=== PATIENT | male | born 1945 | race Caucasian/White ===

== ENCOUNTER 2017-04-15 09:47 | Inpatient (IN) | payer OTHER, MEDICARE ==
[~2017-04-15] VITALS: Ht 167.6 cm; Wt 65.5 kg
[2017-04-15] VITALS (13 sets, daily range): BP systolic 128–229; BP diastolic 79–137; PULSE 66–99; RESP 18–20; TEMP 97.7–98.3; O2SAT 95–100
[~2017-04-15 09:47] MED LIST: AMLO10 PO; ATOR20TA15 PO; BENGCRE TOPICAL; COUM5TAB PO; ISOS10TA PO; LISI-515 PO; METO25TA3 PO; NITR0.4S SL
[2017-04-15] MEDS ORDERED: SODIUM CHLORIDE 0.9% FLUSH 10 ML FLUSH IVF PRN (10:15)
[2017-04-15 10:27] LABS: AUTOMATED NEUTROPHIL # 5.7 TH/MM3 (1.8-7.7); BASOPHIL # 0.1 TH/MM3 (0-0.2); BASOPHIL % 0.8 % (0.0-2.0); EOSINOPHIL # 0.2 TH/MM3 (0-0.4); EOSINOPHIL % 2.8 % (0.0-4.0); HEMATOCRIT 40.1 % (39.0-51.0); HEMO FLAGS DIFF FINAL; LYMPH % 20.7 % (9.0-44.0); LYMPHOCYTE # 1.8 TH/MM3 (1.0-4.8); MEAN CELL VOLUME 87.8 FL (80.0-100.0); MEAN CORPUSCULAR HEMOGLOBIN 28.4 PG (27.0-34.0); MEAN CORPUSCULAR HGB CONC 32.4 % (32.0-36.0); MONO % 9.5 % (0.0-8.0); NEUT % 66.2 % (16.0-70.0); PLATELET COUNT 171 TH/MM3 (150-450); RED BLOOD COUNT 4.56 MIL/MM3 (4.50-5.90); WHITE BLOOD COUNT 8.6 TH/MM3 (4.0-11.0)
[2017-04-15] MEDS ORDERED: LABETALOL HCL 100 MG/20 ML VIAL IV PUSH ONE ×3 (10:45→13:30)
[2017-04-15 10:47] LABS: ANION GAP 9 MEQ/L (5-15); APTT (PATIENT) 30.8 SEC (24.3-30.1); AST (GOT) 22 U/L (15-37); BICARBONATE 27.4 MEQ/L (21.0-32.0); BLOOD UREA NITROGEN 29 MG/DL (7-18); CHLORIDE 104 MEQ/L (98-107); GLOMERULAR FILTRATION RATE 39 ML/MIN (>89); POTASSIUM 3.6 MEQ/L (3.5-5.1); PROTHROMBIN TIME - PATIENT 11.6 SEC (9.8-11.6); SODIUM (NA) 140 MEQ/L (136-145)
[2017-04-15 10:48] LABS: ALT (GPT) 23 U/L (12-78)
[2017-04-15 10:52] LABS: ALKALINE PHOSPHATASE 114 U/L (45-117); TOTAL BILIRUBIN ADULT 1.1 MG/DL (0.2-1.0)
[2017-04-15 11:01] LABS: CREATINE KINASE 94 U/L (39-308)
--- NOTE | 2017-04-15 11:03 | PD ---
HPI Chief Complaint: Chest Pain Time Seen by Provider: 10:13 Travel History International Travel<30 days: No Contact w/Intl Traveler<30days: No Traveled to known affect area: No History of Present Illness HPI sent from [place] due to intermittent cp for last week, however, last episode about 2 hour ago, substernal, nonrad, 02/15, pressure like PFSH Past Medical History Anxiety: No Depression: Yes Heart Rhythm Problems: Yes (afib/aflutter) Cancer: No Cardiac Catheterization: Yes Cardiovascular Problems: Yes (BYPASS) High Cholesterol: Yes Chest Pain: Yes Congestive Heart Failure: No Coronary Artery Disease: Yes Endocrine: No Gastrointestinal Disorders: No Genitourinary: No Hypertension: Yes Immune Disorder: No Inguinal Hernia: Yes Implanted Vascular Access Dvce: Yes Musculoskeletal: Yes Neurologic: No Psychiatric: Yes Reproductive: No Respiratory: No Immunizations Current: Yes Myocardial Infarction: Yes ?: Not Past Surgical History Abdominal Surgery: No Body Medical Devices: coronary stents Cardiac Surgery: Yes Coronary Artery Bypass Graft: Yes (x5) Coronary Stent: Yes Ear Surgery: No Endocrine Surgery: No Eye Surgery: No Genitourinary Surgery: No Gynecologic Surgery: No Neurologic Surgery: No Oral Surgery: No Thoracic Surgery: No Other Surgery: Yes Social History Alcohol Use: No Tobacco Use: No Substance Use: No Allergies-Medications (Allergen,Severity, Reaction): Coded Allergies: lisinopril (Verified Allergy, Unknown, 04/15/17) penicillin G (Unverified Allergy, Unknown, 03/23/17) wool (Verified Allergy, Unknown, 04/15/17) Reported Meds & Prescriptions Reported Meds & Active Scripts Active Coumadin (Warfarin) 5 Mg Tab 5 Mg PO DAILY@1600 Metoprolol Tartrate 25 Mg Tab 25 Mg PO Q12HR Norvasc (Amlodipine Besylate) 10 Mg Tab 10 Mg PO DAILY Reported Nitrostat SL (Nitroglycerin) 0.4 Mg Subl 0.4 Mg SL DIRECTED PRN 1 tablet under the tongue as needed for chest pain. Repeat every 5 minutes for a total of 3 DOSES or call 911 if NO relief. Isosorbide Dinitrate 10 Mg Tab 10 Mg PO BID Atorvastatin (Atorvastatin Calcium) 20 Mg Tab 20 Mg PO HS Review of Systems Except as stated in HPI: all other systems reviewed are Neg Cardiovascular: Positive: Chest Pain or Discomfort Physical Exam Narrative GENERAL: SKIN: Warm and dry. HEAD: Atraumatic. Normocephalic. EYES: Pupils equal and round. No scleral icterus. No injection or drainage. ENT: No nasal bleeding or discharge. Mucous membranes pink and moist. NECK: Trachea midline. No JVD. CARDIOVASCULAR: Regular rate and rhythm. RESPIRATORY: No accessory muscle use. Clear to auscultation. Breath sounds equal bilaterally. GASTROINTESTINAL: Abdomen soft, non-tender, nondistended. MUSCULOSKELETAL: Extremities without clubbing, cyanosis, or edema. No obvious deformities. NEUROLOGICAL: Awake and alert. No obvious cranial nerve deficits. Motor grossly within normal limits. Five out of 5 muscle strength in the arms and legs. Normal speech. PSYCHIATRIC: Appropriate mood and affect; insight and judgment normal. Data Data Last Documented VS Vital Signs Date Time Temp Pulse Resp B/P (MAP) Pulse Ox O2 Delivery O2 Flow Rate FiO2 04/15/17 12:08 72 18 178/97 (124) 99 Room Air 04/15/17 09:49 97.7 Orders Orders Electrocardiogram (04/15/17 10:13) B-Type Natriuretic Peptide (04/15/17 10:13) Ckmb (Isoenzyme) Profile (04/15/17 10:13) Complete Blood Count With Diff (04/15/17 10:13) Comprehensive Metabolic Panel (04/15/17 10:13) Prothrombin Time / Inr (Pt) (04/15/17 10:13) Act Partial Throm Time (Ptt) (04/15/17 10:13) Troponin I (04/15/17 10:13) Lipase (04/15/17 10:13) Chest, Single Ap (04/15/17 10:13) Ecg Monitoring (04/15/17 10:13) Bilateral Bp Monitoring (04/15/17 10:13) Iv Access Insert/Monitor (04/15/17 10:13) Oximetry (04/15/17 10:13) Oxygen Administration (04/15/17 10:13) Sodium Chloride 0.9% Flush (Ns Flush) (04/15/17 10:15) Labetalol Inj (Trandate Inj) (04/15/17 10:45) Labetalol Inj (Trandate Inj) (04/15/17 11:30) Aspirin Chew (Aspirin Chew) (04/15/17 11:30) Nitroglycerin 2% Oint (Nitroglycerin 2% (04/15/17 11:30) Enoxaparin Inj (Lovenox Inj) (04/15/17 11:30) Comprehensive Metabolic Panel (04/16/17 06:00) Free Thyroxine (T4) (04/16/17 06:00) Hemoglobin (Hgb) A1c (04/16/17 06:00) Magnesium (Mg) (04/16/17 06:00) Phosphorus (Po4) (04/16/17 06:00) Thyroid Stimulating Hormone (04/16/17 06:00) Complete Blood Count With Diff (04/16/17 06:00) Admit Order (Ed Use Only) (04/15/17 12:55) Amlodipine (Norvasc) (04/15/17 14:00) Atorvastatin (Lipitor) (04/15/17 21:00) Isosorbide Dinitrate (Isordil) (04/15/17 17:00) Metoprolol Tartrate (Lopressor) (04/15/17 14:00) Warfarin (Coumadin) (04/15/17 16:00) Labs Laboratory Tests Test 04/15/17 10:16 White Blood Count 8.6 TH/MM3 Red Blood Count 4.56 MIL/MM3 Hemoglobin 13.0 GM/DL Hematocrit 40.1 % Mean Corpuscular Volume 87.8 FL Mean Corpuscular Hemoglobin 28.4 PG Mean Corpuscular Hemoglobin Concent 32.4 % Red Cell Distribution Width 14.0 % Platelet Count 171 TH/MM3 Mean Platelet Volume 9.3 FL Neutrophils (%) (Auto) 66.2 % Lymphocytes (%) (Auto) 20.7 % Monocytes (%) (Auto) 9.5 % Eosinophils (%) (Auto) 2.8 % Basophils (%) (Auto) 0.8 % Neutrophils # (Auto) 5.7 TH/MM3 Lymphocytes # (Auto) 1.8 TH/MM3 Monocytes # (Auto) 0.8 TH/MM3 Eosinophils # (Auto) 0.2 TH/MM3 Basophils # (Auto) 0.1 TH/MM3 CBC Comment DIFF FINAL Differential Comment Prothrombin Time 11.6 SEC Prothromb Time International Ratio 1.0 RATIO Activated Partial Thromboplast Time 30.8 SEC Blood Urea Nitrogen 29 MG/DL Creatinine 1.74 MG/DL Random Glucose 106 MG/DL Total Protein 8.0 GM/DL Albumin 3.8 GM/DL Calcium Level 8.9 MG/DL Alkaline Phosphatase 114 U/L Aspartate Amino Transf (AST/SGOT) 22 U/L Alanine Aminotransferase (ALT/SGPT) 23 U/L Total Bilirubin 1.1 MG/DL Sodium Level 140 MEQ/L Potassium Level 3.6 MEQ/L Chloride Level 104 MEQ/L Carbon Dioxide Level 27.4 MEQ/L Anion Gap 9 MEQ/L Estimat Glomerular Filtration Rate 39 ML/MIN Total Creatine Kinase 94 U/L Troponin I 0.10 NG/ML B-Type Natriuretic Peptide 802 PG/ML Lipase 126 U/L MDM Medical Decision Making Medical Screen Exam Complete: Yes Emergency Medical Condition: Yes Medical Record Reviewed: Yes Interpretation(s) afib with cvr, no stemi pattern Differential Diagnosis stemi v nonstemi v hypertensive emergency v electrolyte abnl Narrative Course patient found to be very hypertensive, requiring iv medications to control sbp above 200, along with his history of cp, htn emergency is possible, currently awaiting labs......once troponin elevated htn emergency dx made, given asa/ntg/ lovenox and further iv labetalol to control severe htn...which started to respond and thus patient did not require to be placed on drip Critical Care Narrative CRITICAL CARE NOTE: With evaluation of the patient, labs, EKG, receipt of radiologic studies, administration of medications, reevaluation the patient and discussion of the patient with the admitting physicians, the total critical care time was [45] minutes. Time to perform other separately billable procedures was not included in the critical care time. Diagnosis Primary Impression: hypertensive urgency Additional Impression: nonstemi Admitting Information Admitting Physician Requests: Isaias Bains MD Apr 15, 2017 11:03
[2017-04-15] MEDS ORDERED: NITROGLYCERIN 2% OINT 1 GM PACKET TOP ONE (11:30)
[2017-04-15] MEDS ORDERED: ENOXAPARIN SODIUM 60 MG/0.6 ML SYRINGE SQ ONE (11:30)
[2017-04-15] MEDS ORDERED: ASPIRIN 81 MG CHEW TAB PO ONE (11:30)
--- NOTE | 2017-04-15 11:49 | RADRPT ---
EXAM DATE/TIME: 04/15/2017 10:26 [facility] COMPARISON: CHEST SINGLE AP, July 23, 2016, 11:15. INDICATIONS : Chest pain, shortness of breath. MEDICAL HISTORY : Hypertension. SURGICAL HISTORY : CABG. ENCOUNTER: Initial ACUITY: 2 weeks PAIN SCORE: 2/10 LOCATION: Left chest FINDINGS: Median sternotomy wires are noted status post cardiac surgery. The heart is enlarged. Pulmonary vas cular pattern is normal. The lungs are clear. CONCLUSION: 1. Cardiomegaly 2. No acute focal pulmonary infiltrate or pulmonary vascular congestion. Gabriel Nassar MD on April 15, 2017 at 11:40 Board Certified Radiologist. This report was verified electronically.
[2017-04-15] MEDS ORDERED: MAGNESIUM HYDROXIDE SUSP 30 ML CUP PO PRN (13:00)
[2017-04-15] MEDS ORDERED: SODIUM CHLORIDE 0.9% FLUSH 10 ML FLUSH IV FLUSH PRN ×2 (13:00)
[2017-04-15] MEDS ORDERED: ACETAMINOPHEN 325 MG TAB PO PRN ×2 (13:00)
[2017-04-15] MEDS ORDERED: LACTULOSE SYRUP 20 GM/30 ML CUP PO PRN (13:00)
[2017-04-15] MEDS ORDERED: MORPHINE SULFATE 4 MG/ML INJ IV PRN ×2 (13:00)
[2017-04-15] MEDS ORDERED: NALOXONE HCL 0.4 MG/ML AMP IV PRN (13:00)
[2017-04-15] MEDS ORDERED: ZOLPIDEM TARTRATE 5 MG TAB PO PRN (13:00)
[2017-04-15] MEDS ORDERED: ACETAMINOPHEN/HYDROcodone 325 MG/10 MG TAB PO PRN (13:00)
[2017-04-15] MEDS ORDERED: BISACODYL 10 MG SUPP RECTAL PRN (13:00)
[2017-04-15] MEDS ORDERED: SENNOSIDES 8.6 MG TAB PO PRN (13:00)
[2017-04-15] MEDS ORDERED: PROCHLORPERAZINE 25 MG SUPP RECTAL PRN (13:00)
[2017-04-15] MEDS ORDERED: NITROGLYCERIN 0.4 MG SL 25 TABS/BTL SL PRN (13:15)
[2017-04-15] MEDS ORDERED: METOPROLOL TARTRATE 25 MG TAB PO SCH (14:00)
[2017-04-15] MEDS: oxyCODONE/ACETAMINOPHEN 5 MG/325 MG TAB PO PRN (14:23)
--- NOTE | 2017-04-15 15:03 | MB ---
cc: HOLLY HASTINGS M.D. DATE OF CONSULTATION: 04/15/2017 REASON FOR CONSULTATION: For evaluation of ischemic heart disease. HISTORY OF PRESENT ILLNESS: Sommer Murray is a 71-year-old man who is a and is followed at [facility]. Apparently he was seen there today and was referred over for chest pain. The patient has a history of bypass and per the records it is a five vessel bypass. The patient told me was done at [facility], he also told me was 1 year ago seems highly unlikely was only 1 year ago from reviewing his records, insofar as she had a previous cardiology consult from Dr. Marques and the date of this consult was July 2016 and that would only been a few months after his bypass if that was in fact true. I asked him what year it was and he had trouble figuring that out, He also could not tell me what day of the week it was and actually had to ask me for what day of week it was. He thought it was year 2006. He is aware that the president is Andrew. He says that he gets chest discomfort. He only gets it when he lies down at night and does not get it when he is around. Its a pressure feeling like an elephant on his chest. He does not have any of that now. He says that he has had this intermittently for two weeks. His chart lists five different medications; Warfarin Metoprolol, Amlodipine, Isordil, Atorvastatin, The patient cannot confirm that, he states that he only takes three medications and that is counting the nitroglycerin. He also denies taking any blood thinner and never heard of the word warfarin and does not get lab work for warfarin that I can figure out. He lives alone, he is upset over losing his girlfriend which was a while ago. He has had previous Veronica Acts here. The patient also tells me that he hears voices otherwise his home to "get the Fuck out of here". He also hallucinates at night and sees people dying and if there is a ceiling fan on he will see helicopter hallucinations. 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 His blood pressure here is severely elevated. He says he forgot to take any of his blood pressure medicines today. He does say he took them yesterday but I am not sure how reliable that history is. PAST MEDICAL HISTORY: 1. Past medical history includes coronary artery disease with bypass surgery x5 2. We cannot determine whether he has had a previous heart attack or not. He is not certain. 3. Hyperlipidemia. 4. Hypertension. 5. Psychiatric history; during one of the psychiatric consults he was described as having a neurocognitive disorder and on the other consult an adjustment disorder with depressed mood. 6. Supposedly has stents, I don't have any records of that. 7. He is in chronic renal failure with small and atrophic kidney disease by imaging. Left kidney was 9.6 cm, right kidney 7.6 cm. 8. His creatinine elevation is similar to what he has had to similar to what he has had on previous trips the hospital with stage III chronic kidney disease. 9. Cholelithiasis picked up on imaging. 10. Diverticulosis picked up on imaging. PAST SURGICAL HISTORY: Include his bypass surgery. He has a scar on his left arm which may be from left radial harvest. MEDICATIONS: Supposed medications are; Warfarin Metoprolol Amlodipine Isordil Atorvastatin but it seems quite certain that he is not on all these as he can only remember taking three medicines. At one point in the past he was on Allopurinol. ALLERGIES LISINOPRIL PENICILLIN Wool. SOCIAL HISTORY Single, does not drink, smoke or use any drugs. He has a sister who lives in [place]. He has been living in dilapidated housing, his previous housing had rats and cockroaches in it. FAMILY HISTORY: Positive for coronary artery disease. PHYSICAL EXAMINATION IN GENERAL: Well-developed, well-nourished white male, I am not sure he is fully oriented. VITAL SIGNS: His blood pressure has been markedly elevated as high 222/130 and 211/121. HEAD, EYES, EARS, NOSE, AND THROAT: Exam unremarkable. NECK: Negative for bruits. CHEST: The chest is clear to auscultation. CARDIOVASCULAR SYSTEM: Exam S1-S2 irregular rate and rhythm with a 1/6 systolic murmur. ABDOMEN: Soft, nontender. EXTREMITIES: The extremities reveal absent left radial pulse normal right radial pulse. Normal pedal pulses. RADIOLOGIC: EKG shows Atrial fibrillation with controlled ventricular rate, Left ventricular hypertrophy with obvious drain patten. Poor R-wave progression, cannot exclude ante septal myocardial infarction. Troponin is 0.10 which is similar to previous values, creatinine is 1.74 which is similar previous values. INR 21. BNP is 802. Chest x-ray shows cardiomegaly. IMPRESSION This is a 71-year-old with chronic ischemic heart disease there appears to be some cognitive dysfunction as far as he can tell what time it is. He has definitely has symptoms that sound like angina but blood pressure is extremely out of control so cannot tell whether this is a angina from coronary disease or angina secondary to uncontrolled hypertension. He has significant chronic renal failure. He has chronic atrial fibrillation and I do not think he is on anticoagulation from what I can tell. In fact there is a question about compliance and what medications he is actually on outside of here. He only admits to taking two medicines, plus nitroglycerin which is completely different than the medication list that is in the computer. The elevated troponin is probably due to renal disease and not due to infarction. RECOMMENDATIONS: 1. We need use blood pressure under control, I would like to see if we can get some records from [facility]. I would like to check a 2-D echo Doppler study, once a blood pressure is under control then will decide on cardiac cath versus stress test. He will probably need a stress test first but need to wait and see. I will discontinue the Lovenox in view of the renal failure and if we decide to use anticoagulation we will use IV heparin. I am holding the warfarin incase he needs an invasive procedure, he may benefit from a psychiatric and home health interventions as there is some question about his cognitive function. Further therapy to be determined. MD ROSIE Estrada/jammie /2:19 PM /2:33 PM
[2017-04-15] MEDS ORDERED: hydrALAZINE HCL 20 MG/ML VIAL IV PUSH PRN (15:30)
--- NOTE | 2017-04-15 15:53 | ECHRPT ---
Indication: Chest pain, unspecified CONCLUSIONS Normal left ventricular size. Mild concentric left ventricular hypertrophy. The left ventricular systolic function is severely reduced with an estimated ejection fraction in th e range of 30-35%. [place] severely hypokinetic. Suspect anterior hypokinesis too. The left atrial size is moderately dilated. Mitral annular calcification is present. Mild mitral valve regurgitation. At least moderate aortic valve sclerosis is present. There is trace tricuspid valve regurgitation. The estimated pulmonary arterial pressure is 30 mmHg. The pulmonary valve is not well visualized. BP: / HR: Rhythm: MEASUREMENTS (Male / Female) Normal Values Technical Quality:Good 2D ECHO LV Diastolic Diameter PLAX 4.1 cm 4.2 - 5.9 / 3.9 - 5.3 cm LV Systolic Diameter PLAX 3.4 cm IVS Diastolic Thickness 1.7 cm 0.6 - 1.0 / 0.6 - 0.9 cm LVPW Diastolic Thickness 1.1 cm 0.6 - 1.0 / 0.6 - 0.9 cm LV Relative Wall Thickness 0.7 RV Internal Dim ED PLAX 2.3 cm LA Systolic Diameter LX 4.1 cm 3.0 - 4.0 / 2.7 - 3.8 cm M-MODE Aortic Root Diameter MM 3.3 cm AV Cusp Separation MM 1.8 cm DOPPLER Mitral E Point Velocity 67.6 cm/s TR Peak Velocity 221.0 cm/s TR Peak Gradient 19.5 mmHg FINDINGS LEFT VENTRICLE Normal left ventricular size. Mild concentric left ventricular hypertrophy. The left ventricular systolic function is severely reduced with an estimated ejection fraction in th e range of 30-35%. [place] severely hypokinetic. Suspect anterior hypokinesis too. RIGHT VENTRICLE Normal right ventricular size and systolic function. LEFT ATRIUM The left atrial size is moderately dilated. RIGHT ATRIUM The right atrial size is normal. ATRIAL SEPTUM Normal atrial septal thickness without atrial level shunting by limited color doppler interrogation. AORTA The aortic root and proximal ascending aorta are normal in size on limited imaging. MITRAL VALVE Mitral annular calcification is present. Mild mitral valve regurgitation. AORTIC VALVE At least moderate aortic valve sclerosis is present. TRICUSPID VALVE There is trace tricuspid valve regurgitation. The estimated pulmonary arterial pressure is 30 mmHg. PULMONARY VALVE The pulmonary valve is not well visualized. VESSELS The inferior vena cava is normal in size. PERICARDIUM No pericardial effusion. Vernon Godinez MD (Electronically Signed) Final Date:15 April 2017 15:53
[2017-04-15] MEDS: ONDANSETRON HCL 4 MG/2 ML VIAL IVP PRN ×2 (15:54→21:41)
[2017-04-15] MEDS ORDERED: WARFARIN SOD 5 MG TAB PO SCH (16:00)
[2017-04-15] MEDS ORDERED: DO NOT ADM ANY ANTICOAGULANT DRUGS OTHER PRN (16:00)
--- NOTE | 2017-04-15 16:18 | HHI.HP ---
[facility] Primary Care Physician [facility] Admission Diagnosis AFIB CVR, HTN UNCONTROLLED, Diagnoses: (1) Noncompliance Diagnosis: Secondary (2) Adjustment disorder with depressed mood Diagnosis: Secondary (3) Schizo-affective schizophrenia, chronic condition (4) Chronic kidney disease, stage 3 Diagnosis: Secondary (5) Hypertension Diagnosis: Principal (6) New onset atrial fibrillation (7) Acute kidney injury Diagnosis: Secondary (8) Elevated troponin I level Diagnosis: Principal (9) Chest pain Diagnosis: Principal Chief Complaint: Chest pain Travel History International Travel<30 Days: No Contact w/Intl Traveler <30 Da: No Traveled to Known Affected Are: No History of Present Illness Patient is a 71-year-old male who is normally followed at the [facility]. He was seen there today and was sent over to the hospital regarding chest pain. Patient has a extensive cardiac history with a history of bypass of 5 vessels.. Patient has history of psychiatric disorder also so history is not very reliable Patient has chest discomfort especially when he lies down at night does not get it when he moves around. It is a pressure-like feeling like an elephant on his chest. Denies any chest pain at this time. States that he's had this on and off for the past 2 weeks Patient has posterior medics stress disorder also Patient's blood pressures completely uncontrolled. Will be admitted. His troponins are elevated. Will be monitored by cardiology and trended. We'll get an echo. We'll continue to follow him throughout the admission Review of Systems ROS Limitations: Altered Mental Status, Poor Historian Constitutional: DENIES: Diaphoretic episodes, Fatigue, Fever, Weight gain, Weight loss, Chills, Dizziness, Change in appetite Endocrine: DENIES: Heat/cold intolerance, Polydipsia, Polyuria, Polyphagia Eyes: DENIES: Blurred vision, Diplopia, Eye inflammation, Eye pain Ears, nose, mouth, throat: DENIES: Tinnitus, Hearing loss, Vertigo, Nasal discharge, Oral lesions, Throat pain Respiratory: COMPLAINS OF: Cough, DENIES: Apneas, Snoring, Wheezing, Hemoptysis , Sputum production, Shortness of breath Cardiovascular: COMPLAINS OF: Chest pain, DENIES: Palpitations, Syncope, Dyspnea on Exertion, PND, Lower Extremity Edema Gastrointestinal: COMPLAINS OF: Abdominal pain, Nausea, Vomiting, DENIES: Black stools, Bloody stools, Constipation, Diarrhea Genitourinary: DENIES: Sexual dysfunction, Urinary frequency Musculoskeletal: DENIES: Joint pain, Muscle aches, Stiffness, Joint Swelling Integumentary: DENIES: Abnormal pigmentation, Nail changes, Pruritus Hematologic/lymphatic: DENIES: Bruising, Lymphadenopathy Immunologic/allergic: DENIES: Eczema, Urticaria Neurologic: DENIES: Abnormal gait, Headache, Localized weakness, Paresthesias, Seizures, Speech Problems Psychiatric: COMPLAINS OF: Anxiety, Confusion, Mood changes, Depression, Hallucinations, DENIES: Agitation, Suicidal Ideation, Homicidal Ideation Past Family Social History Past Medical History Coronary artery disease history of bypass 5 Hypertension Hyperlipidemia Psychiatric disorder Suspected posttraumatic stress disorder Possible coronary stents Chronic kidney disease stage III Past Surgical History Coronary artery bypass graft of 5 vessels left arm surgery Reported Medications Reported Meds & Active Scripts Active Coumadin (Warfarin) 5 Mg Tab 5 Mg PO DAILY@1600 Metoprolol Tartrate 25 Mg Tab 25 Mg PO Q12HR Norvasc (Amlodipine Besylate) 10 Mg Tab 10 Mg PO DAILY Reported Nitrostat SL (Nitroglycerin) 0.4 Mg Subl 0.4 Mg SL DIRECTED PRN 1 tablet under the tongue as needed for chest pain. Repeat every 5 minutes for a total of 3 DOSES or call 911 if NO relief. Isosorbide Dinitrate 10 Mg Tab 10 Mg PO BID Atorvastatin (Atorvastatin Calcium) 20 Mg Tab 20 Mg PO HS Allergies: Coded Allergies: lisinopril (Verified Allergy, Unknown, 04/15/17) penicillin G (Unverified Allergy, Unknown, 03/23/17) wool (Verified Allergy, Unknown, 04/15/17) Active Ordered Medications Current Medications Sodium Chloride (NS Flush) 2 ml UNSCH PRN IVF FLUSH AFTER USING IV ACCESS Last administered on 04/15/17 10:50; Start 04/15/17 at 10:15; Stop 04/15/17 at 13:40; Status DC Labetalol HCl (Trandate Inj) 10 mg ONCE ONCE IV PUSH Last administered on 10:47; Start 04/15/17 at 10:45; Stop 04/15/17 at 10:46; Status DC Labetalol HCl (Trandate Inj) 10 mg ONCE ONCE IV PUSH Last administered on 12:07; Start 04/15/17 at 11:30; Stop 04/15/17 at 11:31; Status DC Aspirin (Aspirin Chew) 162 mg ONCE ONCE PO Last administered on 04/15/17 12:07 ; Start 04/15/17 at 11:30; Stop 04/15/17 at 11:31; Status DC Nitroglycerin (Nitroglycerin 2% Oint) 1 inch ONCE ONCE TOP Last administered on 04/15/17 12:08; Start 04/15/17 at 11:30; Stop 04/15/17 at 11:31; Status DC Enoxaparin Sodium (Lovenox Inj) 60 mg ONCE ONCE SQ Last administered on 12:08; Start 04/15/17 at 11:30; Stop 04/15/17 at 11:31; Status DC Amlodipine Besylate (Norvasc) 10 mg DAILY PO Last administered on 04/15/17 14: 22; Start 04/15/17 at 14:00 Atorvastatin Calcium (Lipitor) 20 mg HS PO ; Start 04/15/17 at 21:00 Isosorbide Dinitrate (Isordil) 10 mg BID@0700,1700 PO ; Start 04/15/17 at 17:00 Metoprolol Tartrate (Lopressor) 25 mg Q12HR PO Last administered on 04/15/17 14 :21; Start 04/15/17 at 14:00; Stop 04/15/17 at 15:25; Status DC Warfarin Sodium (Coumadin) 5 mg DAILY@1600 PO ; Start 04/15/17 at 16:00; Stop 04/15/17 at 16:00; Status DC Sodium Chloride (NS Flush) 2 ml UNSCH PRN IV FLUSH FLUSH AFTER USING IV ACCESS ; Start 04/15/17 at 13:00; Status UNV Sodium Chloride (NS Flush) 2 ml BID IV FLUSH ; Start 04/15/17 at 21:00; Status UNV Aspirin (Aspirin Chew) 81 mg DAILY PO ; Start 04/16/17 at 09:00 Sodium Chloride (NS Flush) 2 ml UNSCH PRN IV FLUSH FLUSH AFTER USING IV ACCESS ; Start 04/15/17 at 13:00 Sodium Chloride (NS Flush) 2 ml BID IV FLUSH ; Start 04/15/17 at 21:00 Acetaminophen (Tylenol) 650 mg Q4H PRN PO TEMP > 100.4; Start 04/15/17 at 13:00 Ondansetron HCl (Zofran Inj) 4 mg Q6H PRN IVP NAUSEA OR VOMITING Last administered on 04/15/17t 15:54; Start 04/15/17 at 13:00 Prochlorperazine (Compazine Supp) 25 mg Q12H PRN RECTAL NAUSEA OR VOMITING; Start 04/15/17 at 13:00 Zolpidem Tartrate (Ambien) 5 mg HS PRN PO INSOMNIA; Start 04/15/17 at 13:00 Acetaminophen (Tylenol) 650 mg Q6H PRN PO PAIN SCALE 1 TO 2; Start 04/15/17 at 13:00 Acetaminophen/ Hydrocodone Bitart ([place] 10-325 Mg) 1 tab Q4H PRN PO PAIN SCALE 6 TO 10; Start 04/15/17 at 13:00 Oxycodone/ Acetaminophen (Percocet 5-325 Mg) 1 tab Q6H PRN PO PAIN SCALE 3 TO 5 Last administered on 04/15/17t 14:23; Start 04/15/17 at 13:00 Morphine Sulfate (Morphine Inj) 2 mg Q3H PRN IV Pain 3-5; if unable to take PO ; Start 04/15/17 at 13:00 Morphine Sulfate (Morphine Inj) 4 mg Q3H PRN IV Pain 6-10;if unable to take PO ; Start 04/15/17 at 13:00 Naloxone HCl (Narcan Inj) 0.4 mg UNSCH PRN IV SEE LABEL COMMENTS; Start at 13:00 Senna/Docusate Sodium (Kandi-Colace) 1 tab BID PO ; Start 04/15/17 at 21:00 Magnesium Hydroxide (Milk Of Magnesia Liq) 30 ml Q12H PRN PO MILD - MODERATE CONSTIPATION; Start 04/15/17 at 13:00 Sennosides (Senokot) 17.2 mg Q12H PRN PO MODERATE - SEVERE CONSTIPATION; Start 04/15/17 at 13:00 Bisacodyl (Dulcolax Supp) 10 mg DAILY PRN RECTAL SEVERE CONSITIPATION; Start at 13:00 Lactulose (Lactulose Liq) 30 ml DAILY PRN PO SEVERE CONSITIPATION; Start at 13:00 Nitroglycerin (Nitrostat Sl) 0.4 mg Q5M PRN SL CHEST PAIN; Start 04/15/17 at 13: 15 Labetalol HCl (Trandate Inj) 20 mg ONCE ONCE IV PUSH Last administered on t 13:27; Start 04/15/17 at 13:30; Stop 04/15/17 at 13:31; Status DC Miscellaneous Information ALL NURSING DEPARTME... UNSCH PRN OTHER SEE LABEL COMMENTS; Start 04/15/17 at 16:00; Stop 04/16/17 at 15:59 Patient Medication Teaching (Coumadin Booklet) 1 ONCE ONCE OTHER ; Start at 16:00; Stop 04/15/17 at 16:01; Status DC Enoxaparin Sodium (Lovenox Inj) 60 mg Q12H SQ ; Start 04/15/17 at 23:00; Stop 04/15/17 at 23:00; Status DC Metoprolol Tartrate (Lopressor) 50 mg Q12HR PO ; Start 04/15/17 at 21:00 Clonidine (Catapres) 0.1 mg Q4H PRN PO SBP>160, DBP>90; Start 04/15/17 at 15:30 Hydralazine HCl (Apresoline Inj) 20 mg Q4H PRN IV PUSH SBP>160, DBP>90 Last administered on 04/15/17 15:53; Start 04/15/17 at 15:30 Family History Coronary artery disease Social History He Does not drink, smoke, or use any drugs. Has a sister who lives in [place]. Living in a dilapidated house previous housing rats and cockroaches in it Physical Exam Vital Signs Vital Signs Date Time Temp Pulse Resp B/P (MAP) Pulse Ox O2 Delivery O2 Flow Rate FiO2 04/15/17 15:52 79 18 195/137 (156) 99 Room Air 04/15/17 15:01 78 18 229/109 (149) 98 Room Air 04/15/17 13:20 98 21 04/15/17 13:17 92 18 211/121 (151) 98 Room Air 04/15/17 12:08 72 18 178/97 (124) 99 Room Air 04/15/17 11:03 83 18 172/99 (123) 98 Room Air 04/15/17 10:39 98 Room Air 04/15/17 10:39 04/15/17 10:39 18 99 Room Air 04/15/17 10:37 74 18 175/124 (141) 99 Room Air 04/15/17 10:10 90 18 220/110 (146) 100 Room Air 213/104 (140) 04/15/17 10:05 82 18 100 Room Air 04/15/17 09:49 97.7 99 20 222/130 (160) 100 Room Air Physical Exam GENERAL: This is a well-nourished, well-developed patient, in no apparent distress. Appears disheveled SKIN: No rashes, ecchymoses or lesions. Cool and dry. HEAD: Atraumatic. Normocephalic. No temporal or scalp tenderness. EYES: Pupils equal round and reactive. Extraocular motions intact. No scleral icterus. No injection or drainage. ENT: Nose without bleeding, purulent drainage or septal hematoma. Throat without erythema, tonsillar hypertrophy or exudate. Uvula midline. Airway patent. No carotid bruits tongue is midline NECK: Trachea midline. No JVD or lymphadenopathy. Supple, nontender, no meningeal signs. No carotid bruits CARDIOVASCULAR: IRRegular rate and rhythm without murmurs, gallops, or rubs. S1 -S2 no S3 or S4 no heave or thrill or rub or gallop RESPIRATORY: Clear to auscultation. Breath sounds equal bilaterally. No wheezes , rales, or rhonchi. GASTROINTESTINAL: Abdomen soft, non-tender, nondistended. No hepato-splenomegaly , or palpable masses. No guarding. MUSCULOSKELETAL: Extremities without clubbing, cyanosis, or edema. No joint tenderness, effusion, or edema noted. No calf tenderness. Negative Homans sign bilaterally. Absent left radial pulse NEUROLOGICAL: Awake and alert. Cranial nerves II through XII intact. Motor and sensory grossly within normal limits. Five out of 5 muscle strength in all muscle groups. Normal speech. Insight and judgment poor Mood and behavior is abnormal Laboratory Laboratory Tests Test 04/15/17 10:16 White Blood Count 8.6 Red Blood Count 4.56 Hemoglobin 13.0 Hematocrit 40.1 Mean Corpuscular Volume 87.8 Mean Corpuscular Hemoglobin 28.4 Mean Corpuscular Hemoglobin Concent 32.4 Red Cell Distribution Width 14.0 Platelet Count 171 Mean Platelet Volume 9.3 Neutrophils (%) (Auto) 66.2 Lymphocytes (%) (Auto) 20.7 Monocytes (%) (Auto) 9.5 Eosinophils (%) (Auto) 2.8 Basophils (%) (Auto) 0.8 Neutrophils # (Auto) 5.7 Lymphocytes # (Auto) 1.8 Monocytes # (Auto) 0.8 Eosinophils # (Auto) 0.2 Basophils # (Auto) 0.1 CBC Comment DIFF FINAL Differential Comment Prothrombin Time 11.6 Prothromb Time International Ratio 1.0 Activated Partial Thromboplast Time 30.8 Blood Urea Nitrogen 29 Creatinine 1.74 Random Glucose 106 Total Protein 8.0 Albumin 3.8 Calcium Level 8.9 Alkaline Phosphatase 114 Aspartate Amino Transf (AST/SGOT) 22 Alanine Aminotransferase (ALT/SGPT) 23 Total Bilirubin 1.1 Sodium Level 140 Potassium Level 3.6 Chloride Level 104 Carbon Dioxide Level 27.4 Anion Gap 9 Estimat Glomerular Filtration Rate 39 Total Creatine Kinase 94 Troponin I 0.10 B-Type Natriuretic Peptide 802 Lipase 126 Result Diagram: 04/15/17 1016 04/15/17 1016 Imaging Last Impressions Chest X-Ray 04/15/17 1013 Signed Impressions: Service Date/Time: April 10:26 - CONCLUSION: 1. Cardiomegaly 2. No acute focal pulmonary infiltrate or pulmonary vascular congestion. Gabriel Nassar MD Caprini VTE Risk Assessment Caprini VTE Risk Assessment: Mod/High Risk (score >= 2) Caprini Risk Assessment Model Point Value = 1 Point Value = 2 Point Value = 3 Point Value = 5 Age 41-60 Minor surgery BMI > 25 kg/m2 Swollen legs Varicose veins or History of unexplained or recurrent spontaneous Oral contraceptives or hormone replacement Sepsis (< 1 month) Serious lung disease, including pneumonia (< 1 month) Abnormal pulmonary function Acute myocardial infarction Congestive heart failure (< 1 month) History of inflammatory bowel disease Medical patient at bed rest Age 61-74 Arthroscopic surgery Major open surgery (> 45 min) Laparoscopic surgery (> 45 min) Malignancy Confined to bed (> 72 hours) Immobilizing plaster cast Central venous access Age >= 75 History of VTE Family history of VTE Factor V Leiden Prothrombin [id number] Lupus anticoagulant Anticardiolipin antibodies Elevated serum homocysteine Heparin-induced thrombocytopenia Other congenital or acquired thrombophilia Stroke (< 1 month) Elective arthroplasty Hip, pelvis, or leg fracture Acute spinal cord injury (< 1 month) Prophylaxis Regimen Total Risk Factor Score Risk Level Prophylaxis Regimen 0-1 Low Early ambulation 2 Moderate Order ONE of the following: *Sequential Compression Device (SCD) *Heparin 5000 units SQ BID 3-4 Higher Order ONE of the following medications: *Heparin 5000 units SQ TID *Enoxaparin/Lovenox 40 mg SQ daily (WT < 150 kg, CrCl > 30 mL/min) *Enoxaparin/Lovenox 30 mg SQ daily (WT < 150 kg, CrCl > 10-29 mL/min) *Enoxaparin/Lovenox 30 mg SQ BID (WT < 150 kg, CrCl > 30 mL/min) AND/OR *Sequential Compression Device (SCD) 5 or more Highest Order ONE of the following medications: *Heparin 5000 units SQ TID (Preferred with Epidurals) *Enoxaparin/Lovenox 40 mg SQ daily (WT < 150 kg, CrCl > 30 mL/min) *Enoxaparin/Lovenox 30 mg SQ daily (WT < 150 kg, CrCl > 10-29 mL/min) *Enoxaparin/Lovenox 30 mg SQ BID (WT < 150 kg, CrCl > 30 mL/min) AND *Sequential Compression Device (SCD) Assessment and Plan Assessment and Plan Chest pain with what sounds like chronic ischemic heart disease Elevated troponins suspect non-ST elevation MIs class 2 Chronic renal failure stage III Malignant medical noncompliance Psychiatric disorders Hypertension uncontrolled adjust blood pressure medications continue on statin Hyperlipidemia continue on statin Posttraumatic stress disorder Continue to monitor troponins. We'll get an echocardiogram. A.m. labs PT and OT to eval and treat Case management for discharge planning I discussed with biology instructor ER and the physician and the patient We will adjust blood pressure medications Code Status Full code Discussed Condition With Discussed with cardiology, discussed with ER, discussed with ER physician, discussed with the RN, and the patient. Physician Certification 2 Midnight Certification Type: Admission for Inpatient Services Order for Inpatient Services The services are ordered in accordance with Medicare regulations or non- Medicare payer requirements, as applicable. In the case of services not specified as inpatient-only, they are appropriately provided as inpatient services in accordance with the 2-midnight benchmark. Estimated LOS (days): 3 3 days is the estimated time the patient will need to remain in the hospital, assuming treatment plan goals are met and no additional complications. Post-Hospital Plan: Not yet determined Jay Mirza DO Apr 15, 2017 16:18
[2017-04-15] MEDS: ISOSORBIDE DINITRATE 10 MG TAB PO SCH (17:37)
[2017-04-15] MEDS ORDERED: SODIUM CHLORIDE 0.9% FLUSH 10 ML FLUSH IV FLUSH SCH (21:00)
[2017-04-15] MEDS: METOPROLOL TARTRATE 50 MG TAB PO SCH (21:13)
[2017-04-15] MEDS: ATORVASTATIN 20 MG TAB PO SCH (21:13)
[2017-04-15] MEDS: SODIUM CHLORIDE 0.9% FLUSH 10 ML FLUSH IV FLUSH SCH (21:13)
[2017-04-15] MEDS: DOCUSATE SODIUM 50 MG/SENNA 8.6 MG TAB PO SCH (21:13)
[2017-04-15] MEDS ORDERED: ENOXAPARIN SODIUM 60 MG/0.6 ML SYRINGE SQ SCH (23:00)
[2017-04-16] VITALS (8 sets, daily range): BP systolic 131–159; BP diastolic 72–90; PULSE 68–131; RESP 16–20; TEMP 97.7–98.1; O2SAT 97–99
[2017-04-16] MEDS: oxyCODONE/ACETAMINOPHEN 5 MG/325 MG TAB PO PRN (02:21)
[2017-04-16] MEDS: ISOSORBIDE DINITRATE 10 MG TAB PO SCH ×2 (06:13→17:22)
[2017-04-16] MEDS: SODIUM CHLORIDE 0.9% FLUSH 10 ML FLUSH IV FLUSH SCH ×2 (09:00→21:00)
[2017-04-16] MEDS: ASPIRIN 81 MG CHEW TAB PO SCH (09:00)
[2017-04-16] MEDS: METOPROLOL TARTRATE 50 MG TAB PO SCH ×2 (09:00→22:07)
[2017-04-16] MEDS: DOCUSATE SODIUM 50 MG/SENNA 8.6 MG TAB PO SCH ×2 (09:01→22:10)
--- NOTE | 2017-04-16 09:57 | PD.CARD.PN ---
Subjective Subjective Remarks c/o constipation, intermittent vomiting. No chest pain Objective Medications Current Medications Medications (Trade) Dose Ordered Sig/Heladio Route Start Time Stop Time Status Last Admin (Norvasc) 10 mg DAILY PO 04/15/17 14:00 04/16/17 09:00 (Lipitor) 20 mg HS PO 04/15/17 21:00 04/15/17 21:13 (Isordil) 10 mg BID@0700,1700 PO 04/15/17 17:00 04/16/17 06:13 (Aspirin Chew) 81 mg DAILY PO 04/16/17 09:00 04/16/17 09:00 (NS Flush) 2 ml UNSCH PRN IV FLUSH 04/15/17 13:00 (NS Flush) 2 ml BID IV FLUSH 04/15/17 21:00 04/16/17 09:00 (Tylenol) 650 mg Q4H PRN PO 04/15/17 13:00 (Zofran Inj) 4 mg Q6H PRN IVP 04/15/17 13:00 04/15/17 15:54 (Compazine Supp) 25 mg Q12H PRN RECTAL 04/15/17 13:00 (Ambien) 5 mg HS PRN PO 04/15/17 13:00 (Tylenol) 650 mg Q6H PRN PO 04/15/17 13:00 ([place] 10-325 Mg) 1 tab Q4H PRN PO 04/15/17 13:00 (Percocet 5-325 Mg) 1 tab Q6H PRN PO 04/15/17 13:00 04/16/17 02:21 (Morphine Inj) 2 mg Q3H PRN IV 04/15/17 13:00 (Morphine Inj) 4 mg Q3H PRN IV 04/15/17 13:00 (Narcan Inj) 0.4 mg UNSCH PRN IV 04/15/17 13:00 (Kandi-Colace) 1 tab BID PO 04/15/17 21:00 04/16/17 09:01 (Milk Of Magnesia Liq) 30 ml Q12H PRN PO 04/15/17 13:00 (Senokot) 17.2 mg Q12H PRN PO 04/15/17 13:00 (Dulcolax Supp) 10 mg DAILY PRN RECTAL 04/15/17 13:00 (Lactulose Liq) 30 ml DAILY PRN PO 04/15/17 13:00 (Nitrostat Sl) 0.4 mg Q5M PRN SL 04/15/17 13:15 Miscellaneous Information ALL NURSING DEPARTME... UNSCH PRN OTHER 04/15/17 16:00 04/16/17 15:59 (Lopressor) 50 mg Q12HR PO 04/15/17 21:00 04/16/17 09:00 (Catapres) 0.1 mg Q4H PRN PO 04/15/17 15:30 (Apresoline Inj) 20 mg Q4H PRN IV PUSH 04/15/17 15:30 04/15/17 15:53 Vital Signs / I&O Vital Signs Date Time Temp Pulse Resp B/P (MAP) Pulse Ox O2 Delivery O2 Flow Rate FiO2 04/16/17 07:54 97.7 68 18 159/80 (106) 98 04/16/17 04:00 98.1 78 16 131/84 (100) 98 04/16/17 03:35 18 04/16/17 00:00 97.7 88 19 140/72 (94) 99 04/15/17 20:00 98.3 66 18 128/79 (95) 96 04/15/17 19:52 68 04/15/17 16:10 97.8 73 20 149/94 (112) 95 04/15/17 15:52 79 18 195/137 (156) 99 Room Air 04/15/17 15:01 78 18 229/109 (149) 98 Room Air 04/15/17 13:20 98 21 04/15/17 13:17 92 18 211/121 (151) 98 Room Air 04/15/17 12:08 72 18 178/97 (124) 99 Room Air 04/15/17 11:03 83 18 172/99 (123) 98 Room Air 04/15/17 10:39 98 Room Air 04/15/17 10:39 04/15/17 10:39 18 99 Room Air 04/15/17 10:37 74 18 175/124 (141) 99 Room Air 04/15/17 10:10 90 18 220/110 (146) 100 Room Air 213/104 (140) 04/15/17 10:05 82 18 100 Room Air I/O 04/15/17 04/15/17 04/15/17 04/16/17 04/16/17 04/16/17 06:59 14:59 22:59 06:59 14:59 22:59 Intake Total 80 ml Output Total 200 ml Balance -120 ml Intake Oral 80 ml Output Urine Total 200 ml # Bowel Movements 0 Physical Exam GENERAL: Well developed, well nourished. No acute distress. HEENT: Jugular venous pressure is normal. CHEST: Lungs clear to auscultation bilaterally. Unlabored respiratory effort. CARDIAC: Regular rate and rhythm without S3, S4,. ABDOMEN: Bowel sounds present. EXTREMITIES: No clubbing, cyanosis, or edema. Laboratory Laboratory Tests Test 04/15/17 10:16 04/15/17 20:35 White Blood Count 8.6 TH/MM3 Red Blood Count 4.56 MIL/MM3 Hemoglobin 13.0 GM/DL Hematocrit 40.1 % Mean Corpuscular Volume 87.8 FL Mean Corpuscular Hemoglobin 28.4 PG Mean Corpuscular Hemoglobin Concent 32.4 % Red Cell Distribution Width 14.0 % Platelet Count 171 TH/MM3 Mean Platelet Volume 9.3 FL Neutrophils (%) (Auto) 66.2 % Lymphocytes (%) (Auto) 20.7 % Monocytes (%) (Auto) 9.5 % Eosinophils (%) (Auto) 2.8 % Basophils (%) (Auto) 0.8 % Neutrophils # (Auto) 5.7 TH/MM3 Lymphocytes # (Auto) 1.8 TH/MM3 Monocytes # (Auto) 0.8 TH/MM3 Eosinophils # (Auto) 0.2 TH/MM3 Basophils # (Auto) 0.1 TH/MM3 CBC Comment DIFF FINAL Differential Comment Prothrombin Time 11.6 SEC Prothromb Time International Ratio 1.0 RATIO Activated Partial Thromboplast Time 30.8 SEC Blood Urea Nitrogen 29 MG/DL Creatinine 1.74 MG/DL Random Glucose 106 MG/DL Total Protein 8.0 GM/DL Albumin 3.8 GM/DL Calcium Level 8.9 MG/DL Alkaline Phosphatase 114 U/L Aspartate Amino Transf (AST/SGOT) 22 U/L Alanine Aminotransferase (ALT/SGPT) 23 U/L Total Bilirubin 1.1 MG/DL Sodium Level 140 MEQ/L Potassium Level 3.6 MEQ/L Chloride Level 104 MEQ/L Carbon Dioxide Level 27.4 MEQ/L Anion Gap 9 MEQ/L Estimat Glomerular Filtration Rate 39 ML/MIN Total Creatine Kinase 94 U/L 61 U/L Troponin I 0.10 NG/ML 0.10 NG/ML B-Type Natriuretic Peptide 802 PG/ML Lipase 126 U/L Imaging Last 48 hours Impressions Chest X-Ray 04/15/17 1013 Signed Impressions: Service Date/Time: April 10:26 - CONCLUSION: 1. Cardiomegaly 2. No acute focal pulmonary infiltrate or pulmonary vascular congestion. Gabriel Nassar MD Assessment and Plan Problem List: (1) Noncompliance ICD Codes: Z91.19 - Patient's noncompliance with other medical treatment and regimen (2) Elevated troponin I level ICD Codes: R79.89 - Other specified abnormal findings of blood chemistry Status: Acute Plan: Likely due to renal disease (3) Chronic kidney disease, stage 3 ICD Codes: N18.3 - Chronic kidney disease, stage 3 (moderate) Status: Acute (4) Psychiatric problem ICD Codes: F99 - Mental disorder, not otherwise specified Plan: Has at least mild cognitive problems (5) Chest pain ICD Codes: R07.9 - Chest pain, unspecified Status: Acute Plan: rom SPECT to eval (6) Hypertension ICD Codes: I10 - Essential (primary) hypertension Status: Chronic Plan: off meds before admit, now restarted (7) Atrial fibrillation ICD Codes: I48.91 - Unspecified atrial fibrillation Plan: restart anticoagulation if SPECT negative Vernon Godinez MD Apr 16, 2017 09:57
[2017-04-16] MEDS ORDERED: REGADENOSON INJ 0.4 MG/5 ML SYR ONE (11:22)
--- NOTE | 2017-04-16 12:02 | EKG ---
Date Performed: 04/15/2017 Time Performed: 10:04:42 PTAGE: 71 years EKG: ATRIAL FIBRILLATION LEFT ANTERIOR FASCICULAR BLOCK VOLTAGE CRITERIA FOR LVH POSSIBLE SEPTAL MYOCARDIAL INFARCTION T-WAVE ABNORMALITY, CONSIDER LATERAL ISCHEMIA NONSPECIFIC INTRAVENTICULAR COND UCTION DELAY ABNORMAL ECG NO PREVIOUS TRACING DOCTOR: Brett Olmos Interpretating Date/Time 04/16/2017 12:00:36
--- NOTE | 2017-04-16 13:04 | RADRPT ---
EXAM DATE/TIME: 04/16/2017 11:08 [place] COMPARISON: No previous studies available for comparison. INDICATIONS : Right sided chest pain for two weeks. Coronary artery disease. Coronary artery bypass graft. DOSE: 26.5 mCi Tc99m Myoview at stress. 8.7 mCi Tc99m Myoview at rest. 0.4 mg Lexiscan STRESS SYMPTOMS: Dizziness, nausea and vomiting. EJECTION FRACTION: 40% MEDICAL HISTORY : Hypertension. Renal insufficiency, chronic. SURGICAL HISTORY : Coronary artery stent. ENCOUNTER: Initial ACUITY: 2 weeks PAIN SCALE: 5/10 LOCATION: Right chest TECHNIQUE: The patient underwent pharmacologic stress with infusion of prescribed dose. Continuous ECG tracing was monitored during stress. Gated SPECT imaging was performed after stress and conventional SPECT i maging was performed at rest. The examination was performed on a SPECT/CT scanner, both attenuation and non-corrected datasets were reviewed. FINDINGS: DISTRIBUTION: The maximum perfused segment at stress is in the anterior wall. PERFUSION STUDY: The pattern of perfusion at stress demonstrates reduction in perfusion to the low anterolateral walla nd during rest there is adequate perfusion at the site. GATED STUDY: There is intact wall motion and thickening without hypokinetic or dyskinetic segments. CONCLUSION: The calculated ejection fraction is slightly low with an area of mild ischemia low anterolateral wall . RISK CATEGORY: Low (<1% Annual Mortality Rate) Roselyn Pemberton MD on April 16, 2017 at 13:01 Board Certified Radiologist. This report was verified electronically.
--- NOTE | 2017-04-16 14:07 | HHI.PR ---
Subjective Remarks Patient is a 71-year-old male who is normally followed at the [facility]. He was seen there today and was sent over to the hospital regarding chest pain. Patient has a extensive cardiac history with a history of bypass of 5 vessels.. Patient has history of psychiatric disorder also so history is not very reliable Patient has chest discomfort especially when he lies down at night does not get it when he moves around. It is a pressure-like feeling like an elephant on his chest. Denies any chest pain at this time. States that he's had this on and off for the past 2 weeks Patient has posterior medics stress disorder also Patient's blood pressures completely uncontrolled. Will be admitted. His troponins are elevated. Will be monitored by cardiology and trended. We'll get an echo. We'll continue to follow him throughout the admission 9 HAD STRESS TEST TODAY RELOAD COUMADIN CARDIAC DIET DW RN AND PT Objective Vitals Vital Signs Date Time Temp Pulse Resp B/P (MAP) Pulse Ox O2 Delivery O2 Flow Rate FiO2 04/16/17 07:54 97.7 68 18 159/80 (106) 98 04/16/17 04:00 98.1 78 16 131/84 (100) 98 04/16/17 03:35 18 04/16/17 00:00 97.7 88 19 140/72 (94) 99 04/15/17 20:00 98.3 66 18 128/79 (95) 96 04/15/17 19:52 68 04/15/17 16:10 97.8 73 20 149/94 (112) 95 04/15/17 15:52 79 18 195/137 (156) 99 Room Air 04/15/17 15:01 78 18 229/109 (149) 98 Room Air I/O 04/15/17 04/15/17 04/15/17 04/16/17 04/16/17 04/16/17 06:59 14:59 22:59 06:59 14:59 22:59 Intake Total 80 ml Output Total 200 ml Balance -120 ml Intake Oral 80 ml Output Urine Total 200 ml # Bowel Movements 0 Result Diagram: 04/15/17 1016 04/15/17 1016 Other Results Laboratory Tests Test 04/15/17 10:16 04/15/17 20:35 White Blood Count 8.6 TH/MM3 Red Blood Count 4.56 MIL/MM3 Hemoglobin 13.0 GM/DL Hematocrit 40.1 % Mean Corpuscular Volume 87.8 FL Mean Corpuscular Hemoglobin 28.4 PG Mean Corpuscular Hemoglobin Concent 32.4 % Red Cell Distribution Width 14.0 % Platelet Count 171 TH/MM3 Mean Platelet Volume 9.3 FL Neutrophils (%) (Auto) 66.2 % Lymphocytes (%) (Auto) 20.7 % Monocytes (%) (Auto) 9.5 % Eosinophils (%) (Auto) 2.8 % Basophils (%) (Auto) 0.8 % Neutrophils # (Auto) 5.7 TH/MM3 Lymphocytes # (Auto) 1.8 TH/MM3 Monocytes # (Auto) 0.8 TH/MM3 Eosinophils # (Auto) 0.2 TH/MM3 Basophils # (Auto) 0.1 TH/MM3 CBC Comment DIFF FINAL Differential Comment Prothrombin Time 11.6 SEC Prothromb Time International Ratio 1.0 RATIO Activated Partial Thromboplast Time 30.8 SEC Blood Urea Nitrogen 29 MG/DL Creatinine 1.74 MG/DL Random Glucose 106 MG/DL Total Protein 8.0 GM/DL Albumin 3.8 GM/DL Calcium Level 8.9 MG/DL Alkaline Phosphatase 114 U/L Aspartate Amino Transf (AST/SGOT) 22 U/L Alanine Aminotransferase (ALT/SGPT) 23 U/L Total Bilirubin 1.1 MG/DL Sodium Level 140 MEQ/L Potassium Level 3.6 MEQ/L Chloride Level 104 MEQ/L Carbon Dioxide Level 27.4 MEQ/L Anion Gap 9 MEQ/L Estimat Glomerular Filtration Rate 39 ML/MIN Total Creatine Kinase 94 U/L 61 U/L Troponin I 0.10 NG/ML 0.10 NG/ML B-Type Natriuretic Peptide 802 PG/ML Lipase 126 U/L Imaging Last Impressions Myocardial Perfusion Scan Nuc Med 04/16/17 0000 Signed Impressions: Service Date/Time: Sunday, April 16, 2017 11:08 - CONCLUSION: The calculated ejection fraction is slightly low with an area of mild ischemia low anterolateral wall. RISK CATEGORY: Low (<1%% Annual Mortality Rate) Roselyn Pemberton MD Chest X-Ray 04/15/17 1013 Signed Impressions: Service Date/Time: April 10:26 - CONCLUSION: 1. Cardiomegaly 2. No acute focal pulmonary infiltrate or pulmonary vascular congestion. Gabriel Nassar MD Objective Remarks GENERAL: SKIN: Warm and dry. HEAD: Atraumatic. Normocephalic. EYES: Pupils equal and round. No scleral icterus. No injection or drainage. ENT: No nasal bleeding or discharge. Mucous membranes pink and moist. NECK: Trachea midline. No JVD. CARDIOVASCULAR: Regular rate and rhythm. RESPIRATORY: No accessory muscle use. Clear to auscultation. Breath sounds equal bilaterally. GASTROINTESTINAL: Abdomen soft, non-tender, nondistended. Hepatic and splenic margins not palpable. MUSCULOSKELETAL: Extremities without clubbing, cyanosis, or edema. No obvious deformities. NEUROLOGICAL: Awake and alert. No obvious cranial nerve deficits. Motor grossly within normal limits. Five out of 5 muscle strength in the arms and legs. Normal speech. PSYCHIATRIC: Appropriate mood and affect; insight and judgment normal. Procedures HAD NUCLEAR STRESS TEST 9-8 Medications and IVs Current Medications Sodium Chloride (NS Flush) 2 ml UNSCH PRN IVF FLUSH AFTER USING IV ACCESS Last administered on 04/15/17 10:50; Start 04/15/17 at 10:15; Stop 04/15/17 at 13:40; Status DC Labetalol HCl (Trandate Inj) 10 mg ONCE ONCE IV PUSH Last administered on 10:47; Start 04/15/17 at 10:45; Stop 04/15/17 at 10:46; Status DC Labetalol HCl (Trandate Inj) 10 mg ONCE ONCE IV PUSH Last administered on 12:07; Start 04/15/17 at 11:30; Stop 04/15/17 at 11:31; Status DC Aspirin (Aspirin Chew) 162 mg ONCE ONCE PO Last administered on 04/15/17 12:07 ; Start 04/15/17 at 11:30; Stop 04/15/17 at 11:31; Status DC Nitroglycerin (Nitroglycerin 2% Oint) 1 inch ONCE ONCE TOP Last administered on 04/15/17 12:08; Start 04/15/17 at 11:30; Stop 04/15/17 at 11:31; Status DC Enoxaparin Sodium (Lovenox Inj) 60 mg ONCE ONCE SQ Last administered on 12:08; Start 04/15/17 at 11:30; Stop 04/15/17 at 11:31; Status DC Amlodipine Besylate (Norvasc) 10 mg DAILY PO Last administered on 04/16/17 09: 00; Start 04/15/17 at 14:00 Atorvastatin Calcium (Lipitor) 20 mg HS PO Last administered on 04/15/17 21:13 ; Start 04/15/17 at 21:00 Isosorbide Dinitrate (Isordil) 10 mg BID@0700,1700 PO Last administered on 06:13; Start 04/15/17 at 17:00 Metoprolol Tartrate (Lopressor) 25 mg Q12HR PO Last administered on 04/15/17 14 :21; Start 04/15/17 at 14:00; Stop 04/15/17 at 15:25; Status DC Warfarin Sodium (Coumadin) 5 mg DAILY@1600 PO ; Start 04/15/17 at 16:00; Stop 04/15/17 at 16:00; Status DC Sodium Chloride (NS Flush) 2 ml UNSCH PRN IV FLUSH FLUSH AFTER USING IV ACCESS ; Start 04/15/17 at 13:00; Status UNV Sodium Chloride (NS Flush) 2 ml BID IV FLUSH ; Start 04/15/17 at 21:00; Status UNV Aspirin (Aspirin Chew) 81 mg DAILY PO Last administered on 04/16/17 09:00; Start 04/16/17 at 09:00 Sodium Chloride (NS Flush) 2 ml UNSCH PRN IV FLUSH FLUSH AFTER USING IV ACCESS ; Start 04/15/17 at 13:00 Sodium Chloride (NS Flush) 2 ml BID IV FLUSH Last administered on 04/16/17 09: 00; Start 04/15/17 at 21:00 Acetaminophen (Tylenol) 650 mg Q4H PRN PO TEMP > 100.4; Start 04/15/17 at 13:00 Ondansetron HCl (Zofran Inj) 4 mg Q6H PRN IVP NAUSEA OR VOMITING Last administered on 04/15/17 15:54; Start 04/15/17 at 13:00 Prochlorperazine (Compazine Supp) 25 mg Q12H PRN RECTAL NAUSEA OR VOMITING; Start 04/15/17 at 13:00 Zolpidem Tartrate (Ambien) 5 mg HS PRN PO INSOMNIA; Start 04/15/17 at 13:00 Acetaminophen (Tylenol) 650 mg Q6H PRN PO PAIN SCALE 1 TO 2; Start 04/15/17 at 13:00 Acetaminophen/ Hydrocodone Bitart ([place] 10-325 Mg) 1 tab Q4H PRN PO PAIN SCALE 6 TO 10; Start 04/15/17 at 13:00 Oxycodone/ Acetaminophen (Percocet 5-325 Mg) 1 tab Q6H PRN PO PAIN SCALE 3 TO 5 Last administered on 04/16/17 02:21; Start 04/15/17 at 13:00 Morphine Sulfate (Morphine Inj) 2 mg Q3H PRN IV Pain 3-5; if unable to take PO ; Start 04/15/17 at 13:00 Morphine Sulfate (Morphine Inj) 4 mg Q3H PRN IV Pain 6-10;if unable to take PO ; Start 04/15/17 at 13:00 Naloxone HCl (Narcan Inj) 0.4 mg UNSCH PRN IV SEE LABEL COMMENTS; Start at 13:00 Senna/Docusate Sodium (Kandi-Colace) 1 tab BID PO Last administered on 04/16/17 09:01; Start 04/15/17 at 21:00 Magnesium Hydroxide (Milk Of Magnesia Liq) 30 ml Q12H PRN PO MILD - MODERATE CONSTIPATION; Start 04/15/17 at 13:00 Sennosides (Senokot) 17.2 mg Q12H PRN PO MODERATE - SEVERE CONSTIPATION; Start 04/15/17 at 13:00 Bisacodyl (Dulcolax Supp) 10 mg DAILY PRN RECTAL SEVERE CONSITIPATION; Start at 13:00 Lactulose (Lactulose Liq) 30 ml DAILY PRN PO SEVERE CONSITIPATION; Start at 13:00 Nitroglycerin (Nitrostat Sl) 0.4 mg Q5M PRN SL CHEST PAIN; Start 04/15/17 at 13: 15 Labetalol HCl (Trandate Inj) 20 mg ONCE ONCE IV PUSH Last administered on 13:27; Start 04/15/17 at 13:30; Stop 04/15/17 at 13:31; Status DC Miscellaneous Information ALL NURSING DEPARTME... UNSCH PRN OTHER SEE LABEL COMMENTS; Start 04/15/17 at 16:00; Stop 04/16/17 at 15:59 Patient Medication Teaching (Coumadin Booklet) 1 ONCE ONCE OTHER Last administered on 04/15/17 17:37; Start 04/15/17 at 16:00; Stop 04/15/17 at 16:01; Status DC Enoxaparin Sodium (Lovenox Inj) 60 mg Q12H SQ ; Start 04/15/17 at 23:00; Stop 04/15/17 at 23:00; Status DC Metoprolol Tartrate (Lopressor) 50 mg Q12HR PO Last administered on 04/16/17 09 :00; Start 04/15/17 at 21:00 Clonidine (Catapres) 0.1 mg Q4H PRN PO SBP>160, DBP>90; Start 04/15/17 at 15:30 Hydralazine HCl (Apresoline Inj) 20 mg Q4H PRN IV PUSH SBP>160, DBP>90 Last administered on 04/15/17 15:53; Start 04/15/17 at 15:30 Regadenoson (Lexiscan Inj) 0.4 mg STK-MED ONCE .ROUTE Last administered on 11:22; Start 04/16/17 at 11:22; Stop 04/16/17 at 11:23; Status DC Urinary Catheter: No Vascular Central Line Catheter: No A/P Problem List: (1) Noncompliance ICD Code: Z91.19 - Patient's noncompliance with other medical treatment and regimen (2) Adjustment disorder with depressed mood ICD Code: F43.21 - Adjustment disorder with depressed mood Status: Acute (3) Schizo-affective schizophrenia, chronic condition ICD Code: F25.8 - Other schizoaffective disorders Status: Acute (4) Chronic kidney disease, stage 3 ICD Code: N18.3 - Chronic kidney disease, stage 3 (moderate) Status: Acute (5) Hypertension ICD Code: I10 - Essential (primary) hypertension Status: Chronic (6) New onset atrial fibrillation ICD Code: I48.91 - Unspecified atrial fibrillation Status: Acute (7) Acute kidney injury ICD Code: N17.9 - Acute kidney failure, unspecified Status: Acute (8) Elevated troponin I level ICD Code: R79.89 - Other specified abnormal findings of blood chemistry Status: Acute (9) Chest pain ICD Code: R07.9 - Chest pain, unspecified Status: Acute Assessment and Plan Chest pain with what sounds like chronic ischemic heart disease Elevated troponins suspect non-ST elevation MIs class 2 SUSPECT DUE TO RENAL FAILURE Chronic renal failure stage III Malignant medical noncompliance Psychiatric disorders Hypertension uncontrolled adjust blood pressure medications continue on statin Hyperlipidemia continue on statin Posttraumatic stress disorder Continue to monitor troponins. We'll get an echocardiogram. EF 30-35% A.m. labs PT and OT to eval and treat Case management for discharge planning I discussed with driver medic ER and the physician and the patient We will adjust blood pressure medications Jay Mirza DO Apr 16, 2017 14:07
[2017-04-16] MEDS ORDERED: WARFARIN SOD 5 MG TAB PO SCH (16:00)
[2017-04-16] MEDS: ATORVASTATIN 20 MG TAB PO SCH (22:10)
[2017-04-17] MEDS: ISOSORBIDE DINITRATE 10 MG TAB PO SCH ×2 (06:07→16:11)
[2017-04-17] MEDS: cloNIDine HCL 0.1 MG TAB PO PRN (06:46)
[2017-04-17 07:01] LABS: AUTOMATED NEUTROPHIL # 5.6 TH/MM3 (1.8-7.7); BASOPHIL % 0.6 % (0.0-2.0); EOSINOPHIL # 0.1 TH/MM3 (0-0.4); EOSINOPHIL % 1.5 % (0.0-4.0); HEMATOCRIT 37.6 % (39.0-51.0); HEMO FLAGS DIFF FINAL; LYMPH % 16.4 % (9.0-44.0); LYMPHOCYTE # 1.3 TH/MM3 (1.0-4.8); MEAN CELL VOLUME 87.8 FL (80.0-100.0); MEAN CORPUSCULAR HEMOGLOBIN 28.7 PG (27.0-34.0); MEAN CORPUSCULAR HGB CONC 32.7 % (32.0-36.0); MONO % 11.9 % (0.0-8.0); NEUT % 69.6 % (16.0-70.0); PLATELET COUNT 157 TH/MM3 (150-450); RED BLOOD COUNT 4.29 MIL/MM3 (4.50-5.90); RED CELL DISTRIBUTION WIDTH 14.2 % (11.6-17.2)
[2017-04-17 07:11] LABS: ALT (GPT) 20 U/L (12-78); ANION GAP 8 MEQ/L (5-15); AST (GOT) 31 U/L (15-37); BICARBONATE 26.3 MEQ/L (21.0-32.0); BLOOD UREA NITROGEN 33 MG/DL (7-18); CHLORIDE 106 MEQ/L (98-107); GLOMERULAR FILTRATION RATE 36 ML/MIN (>89); INTERNATIONAL NORMALIZED RATIO 1.1 RATIO; MAGNESIUM 2.3 MG/DL (1.5-2.5); POTASSIUM 3.5 MEQ/L (3.5-5.1); PROTHROMBIN TIME - PATIENT 11.9 SEC (9.8-11.6); SODIUM (NA) 140 MEQ/L (136-145)
[2017-04-17 07:33] LABS: ALKALINE PHOSPHATASE 96 U/L (45-117); CREATINE KINASE 219 U/L (39-308); TOTAL BILIRUBIN ADULT 0.9 MG/DL (0.2-1.0)
[2017-04-17 08:36] VITALS: BP 140/93; PULSE 79; TEMP 97.2; O2SAT 96
[2017-04-17] MEDS: DOCUSATE SODIUM 50 MG/SENNA 8.6 MG TAB PO SCH ×2 (08:42→20:30)
[2017-04-17] MEDS: METOPROLOL TARTRATE 50 MG TAB PO SCH ×2 (08:42→20:29)
[2017-04-17] MEDS: ASPIRIN 81 MG CHEW TAB PO SCH (08:42)
[2017-04-17] MEDS: SODIUM CHLORIDE 0.9% FLUSH 10 ML FLUSH IV FLUSH SCH ×2 (08:42→20:27)
--- NOTE | 2017-04-17 10:03 | PD.CARD.PN ---
Subjective Subjective Remarks Pt feels well, no sx Objective Medications Administered Medications Medications (Trade) Dose Ordered Sig/Heladio Route PRN Reason Start Time Stop Time Status Last Admin Dose Admin Amlodipine Besylate (Norvasc) 10 mg DAILY PO 04/15/17 14:00 04/17/17 08:42 Atorvastatin Calcium (Lipitor) 20 mg HS PO 04/15/17 21:00 04/16/17 22:10 Isosorbide Dinitrate (Isordil) 10 mg BID@0700,1700 PO 04/15/17 17:00 04/17/17 06:07 Aspirin (Aspirin Chew) 81 mg DAILY PO 04/16/17 09:00 04/17/17 08:42 Sodium Chloride (NS Flush) 2 ml BID IV FLUSH 04/15/17 21:00 04/17/17 08:42 Ondansetron HCl (Zofran Inj) 4 mg Q6H PRN IVP NAUSEA OR VOMITING 04/15/17 13:00 04/15/17 15:54 Oxycodone/ Acetaminophen (Percocet 5-325 Mg) 1 tab Q6H PRN PO PAIN SCALE 3 TO 5 04/15/17 13:00 04/16/17 02:21 Senna/Docusate Sodium (Kandi-Colace) 1 tab BID PO 04/15/17 21:00 04/17/17 08:42 Metoprolol Tartrate (Lopressor) 50 mg Q12HR PO 04/15/17 21:00 04/17/17 08:42 Clonidine (Catapres) 0.1 mg Q4H PRN PO SBP>160, DBP>90 04/15/17 15:30 04/17/17 06:46 Hydralazine HCl (Apresoline Inj) 20 mg Q4H PRN IV PUSH SBP>160, DBP>90 04/15/17 15:30 04/15/17 15:53 Warfarin Sodium (Coumadin) 5 mg DAILY@1600 PO 04/16/17 16:00 04/16/17 17:22 Vital Signs / I&O Vital Signs Date Time Temp Pulse Resp B/P (MAP) Pulse Ox O2 Delivery O2 Flow Rate FiO2 04/17/17 08:36 97.2 79 140/93 (109) 96 04/16/17 20:09 82 04/16/17 20:00 98.0 84 18 158/90 (112) 98 04/16/17 17:56 99 21 04/16/17 17:23 97.8 131 20 153/85 (107) 99 04/16/17 10:17 97 21 I/O 04/16/17 04/16/17 04/16/17 04/17/17 04/17/17 04/17/17 06:59 14:59 22:59 06:59 14:59 22:59 Intake Total 80 ml 0 ml Output Total 200 ml Balance -120 ml 0 ml Intake Oral 80 ml 0 ml Output Urine Total 200 ml # Voids 1 # Bowel Movements 0 Physical Exam GENERAL: This is a well-nourished, well-developed patient, in no apparent distress. CARDIOVASCULAR: Regular rate and rhythm without murmurs, gallops, or rubs. RESPIRATORY: Clear to auscultation. Breath sounds equal bilaterally. No wheezes , rales, or rhonchi. GASTROINTESTINAL: Abdomen soft, non-tender, nondistended. Normal active bowel sounds MUSCULOSKELETAL: Extremities without clubbing, cyanosis, or edema. NEURO: Alert & Oriented x4 to person, place, time, situation. Moves all ext x4 Laboratory Laboratory Tests Test 04/17/17 06:22 White Blood Count 8.0 TH/MM3 Red Blood Count 4.29 MIL/MM3 Hemoglobin 12.3 GM/DL Hematocrit 37.6 % Mean Corpuscular Volume 87.8 FL Mean Corpuscular Hemoglobin 28.7 PG Mean Corpuscular Hemoglobin Concent 32.7 % Red Cell Distribution Width 14.2 % Platelet Count 157 TH/MM3 Mean Platelet Volume 9.3 FL Neutrophils (%) (Auto) 69.6 % Lymphocytes (%) (Auto) 16.4 % Monocytes (%) (Auto) 11.9 % Eosinophils (%) (Auto) 1.5 % Basophils (%) (Auto) 0.6 % Neutrophils # (Auto) 5.6 TH/MM3 Lymphocytes # (Auto) 1.3 TH/MM3 Monocytes # (Auto) 0.9 TH/MM3 Eosinophils # (Auto) 0.1 TH/MM3 Basophils # (Auto) 0.0 TH/MM3 CBC Comment DIFF FINAL Differential Comment Prothrombin Time 11.9 SEC Prothromb Time International Ratio 1.1 RATIO Blood Urea Nitrogen 33 MG/DL Creatinine 1.85 MG/DL Random Glucose 97 MG/DL Total Protein 7.1 GM/DL Albumin 3.3 GM/DL Calcium Level 8.6 MG/DL Phosphorus Level 2.9 MG/DL Magnesium Level 2.3 MG/DL Alkaline Phosphatase 96 U/L Aspartate Amino Transf (AST/SGOT) 31 U/L Alanine Aminotransferase (ALT/SGPT) 20 U/L Total Bilirubin 0.9 MG/DL Sodium Level 140 MEQ/L Potassium Level 3.5 MEQ/L Chloride Level 106 MEQ/L Carbon Dioxide Level 26.3 MEQ/L Anion Gap 8 MEQ/L Estimat Glomerular Filtration Rate 36 ML/MIN Total Creatine Kinase 219 U/L Troponin I 5.26 NG/ML Free Thyroxine 0.90 NG/DL Thyroid Stimulating Hormone 3rd Gen 0.731 uIU/ML Imaging Last Impressions Myocardial Perfusion Scan Nuc Med 04/16/17 0000 Signed Impressions: Service Date/Time: Sunday, April 16, 2017 11:08 - CONCLUSION: The calculated ejection fraction is slightly low with an area of mild ischemia low anterolateral wall. RISK CATEGORY: Low (<1%% Annual Mortality Rate) Roselyn Pemberton MD Chest X-Ray 04/15/17 1013 Signed Impressions: Service Date/Time: April 10:26 - CONCLUSION: 1. Cardiomegaly 2. No acute focal pulmonary infiltrate or pulmonary vascular congestion. Gabriel Nassar MD Assessment and Plan Problem List: (1) Elevated troponin I level ICD Codes: R79.89 - Other specified abnormal findings of blood chemistry Status: Acute Plan: Dr. moses will plan for a cath Wednesday (2) Noncompliance ICD Codes: Z91.19 - Patient's noncompliance with other medical treatment and regimen (3) Chronic kidney disease, stage 3 ICD Codes: N18.3 - Chronic kidney disease, stage 3 (moderate) Status: Acute (4) Psychiatric problem ICD Codes: F99 - Mental disorder, not otherwise specified (5) Chest pain ICD Codes: R07.9 - Chest pain, unspecified Status: Acute (6) Hypertension ICD Codes: I10 - Essential (primary) hypertension Status: Chronic (7) Atrial fibrillation ICD Codes: I48.91 - Unspecified atrial fibrillation Assessment and Plan Pt chest pain free; added Heparin ggt; holding warfarin. Isai Paulson MD Apr 17, 2017 10:03
[2017-04-17 10:30] LABS: HEMATOCRIT 36.6 % (39.0-51.0); MEAN CELL VOLUME 88.4 FL (80.0-100.0); MEAN CORPUSCULAR HGB CONC 31.7 % (32.0-36.0); PLATELET COUNT 155 TH/MM3 (150-450); RED BLOOD COUNT 4.14 MIL/MM3 (4.50-5.90); RED CELL DISTRIBUTION WIDTH 14.1 % (11.6-17.2); REVIEW FLAG FINAL; WHITE BLOOD COUNT 8.3 TH/MM3 (4.0-11.0)
[2017-04-17 10:40] LABS: INTERNATIONAL NORMALIZED RATIO 1.1 RATIO; PROTHROMBIN TIME - PATIENT 12.7 SEC (9.8-11.6)
[2017-04-17] MEDS ORDERED: HEPARIN SODIUM - IV 10,000 UNITS/10 ML VIAL IV PRN ×2 (11:00)
[2017-04-17] MEDS: HEPARIN 25,000 UNITS-D5W 250 ML - PREMIX IV SCH (11:20)
[2017-04-17 12:00] VITALS: BP 153/77; PULSE 77; RESP 16; TEMP 97.5; O2SAT 96
--- NOTE | 2017-04-17 12:21 | HHI.PR ---
Subjective Remarks Patient is a 71-year-old male who is normally followed at the [facility]. He was seen there today and was sent over to the hospital regarding chest pain. Patient has a extensive cardiac history with a history of bypass of 5 vessels.. Patient has history of psychiatric disorder also so history is not very reliable Patient has chest discomfort especially when he lies down at night does not get it when he moves around. It is a pressure-like feeling like an elephant on his chest. Denies any chest pain at this time. States that he's had this on and off for the past 2 weeks Patient has posterior medics stress disorder also Patient's blood pressures completely uncontrolled. Will be admitted. His troponins are elevated. Will be monitored by cardiology and trended. We'll get an echo. We'll continue to follow him throughout the admission 04-16 HAD STRESS TEST TODAY RELOAD COUMADIN CARDIAC DIET DW RN AND PT 04-17 TO HAVE CARDIAC CATH 04-19 NO NEW COMPLAINTS NOT CLEARED BY CARDIO FOR DC TROPONINS MORE ELEVATED Objective Vitals Vital Signs Date Time Temp Pulse Resp B/P (MAP) Pulse Ox O2 Delivery O2 Flow Rate FiO2 04/17/17 08:36 97.2 79 140/93 (109) 96 04/16/17 20:09 82 04/16/17 20:00 98.0 84 18 158/90 (112) 98 04/16/17 17:56 99 21 04/16/17 17:23 97.8 131 20 153/85 (107) 99 I/O 04/16/17 04/16/17 04/16/17 04/17/17 04/17/17 04/17/17 07:00 15:00 23:00 07:00 15:00 23:00 Intake Total 80 ml 0 ml Output Total 200 ml Balance -120 ml 0 ml Intake Oral 80 ml 0 ml Output Urine Total 200 ml # Voids 1 # Bowel Movements 0 Result Diagram: 04/17/17 1020 04/17/17 0622 Other Results Laboratory Tests Test 04/15/17 10:16 04/15/17 20:35 04/17/17 06:22 04/17/17 10:20 White Blood Count 8.6 TH/MM3 8.0 TH/MM3 8.3 TH/MM3 Red Blood Count 4.56 MIL/MM3 4.29 MIL/MM3 4.14 MIL/MM3 Hemoglobin 13.0 GM/DL 12.3 GM/DL 11.6 GM/DL Hematocrit 40.1 % 37.6 % 36.6 % Mean Corpuscular Volume 87.8 FL 87.8 FL 88.4 FL Mean Corpuscular Hemoglobin 28.4 PG 28.7 PG 28.0 PG Mean Corpuscular Hemoglobin Concent 32.4 % 32.7 % 31.7 % Red Cell Distribution Width 14.0 % 14.2 % 14.1 % Platelet Count 171 TH/MM3 157 TH/MM3 155 TH/MM3 Mean Platelet Volume 9.3 FL 9.3 FL 9.1 FL Neutrophils (%) (Auto) 66.2 % 69.6 % Lymphocytes (%) (Auto) 20.7 % 16.4 % Monocytes (%) (Auto) 9.5 % 11.9 % Eosinophils (%) (Auto) 2.8 % 1.5 % Basophils (%) (Auto) 0.8 % 0.6 % Neutrophils # (Auto) 5.7 TH/MM3 5.6 TH/MM3 Lymphocytes # (Auto) 1.8 TH/MM3 1.3 TH/MM3 Monocytes # (Auto) 0.8 TH/MM3 0.9 TH/MM3 Eosinophils # (Auto) 0.2 TH/MM3 0.1 TH/MM3 Basophils # (Auto) 0.1 TH/MM3 0.0 TH/MM3 CBC Comment DIFF FINAL DIFF FINAL Differential Comment Prothrombin Time 11.6 SEC 11.9 SEC 12.7 SEC Prothromb Time International Ratio 1.0 RATIO 1.1 RATIO 1.1 RATIO Activated Partial Thromboplast Time 30.8 SEC 32.0 SEC Blood Urea Nitrogen 29 MG/DL 33 MG/DL Creatinine 1.74 MG/DL 1.85 MG/DL Random Glucose 106 MG/DL 97 MG/DL Total Protein 8.0 GM/DL 7.1 GM/DL Albumin 3.8 GM/DL 3.3 GM/DL Calcium Level 8.9 MG/DL 8.6 MG/DL Alkaline Phosphatase 114 U/L 96 U/L Aspartate Amino Transf (AST/SGOT) 22 U/L 31 U/L Alanine Aminotransferase (ALT/SGPT) 23 U/L 20 U/L Total Bilirubin 1.1 MG/DL 0.9 MG/DL Sodium Level 140 MEQ/L 140 MEQ/L Potassium Level 3.6 MEQ/L 3.5 MEQ/L Chloride Level 104 MEQ/L 106 MEQ/L Carbon Dioxide Level 27.4 MEQ/L 26.3 MEQ/L Anion Gap 9 MEQ/L 8 MEQ/L Estimat Glomerular Filtration Rate 39 ML/MIN 36 ML/MIN Total Creatine Kinase 94 U/L 61 U/L 219 U/L Troponin I 0.10 NG/ML 0.10 NG/ML 5.26 NG/ML B-Type Natriuretic Peptide 802 PG/ML Lipase 126 U/L Phosphorus Level 2.9 MG/DL Magnesium Level 2.3 MG/DL Free Thyroxine 0.90 NG/DL Thyroid Stimulating Hormone 3rd Gen 0.731 uIU/ML Imaging Last Impressions Myocardial Perfusion Scan Nuc Med 04/16/17 0000 Signed Impressions: Service Date/Time: Sunday, April 16, 2017 11:08 - CONCLUSION: The calculated ejection fraction is slightly low with an area of mild ischemia low anterolateral wall. RISK CATEGORY: Low (<1%% Annual Mortality Rate) Roselyn Pemberton MD Chest X-Ray 04/15/17 1013 Signed Impressions: Service Date/Time: April 10:26 - CONCLUSION: 1. Cardiomegaly 2. No acute focal pulmonary infiltrate or pulmonary vascular congestion. Gabriel Nassar MD Objective Remarks GENERAL: SKIN: Warm and dry. HEAD: Atraumatic. Normocephalic. EYES: Pupils equal and round. No scleral icterus. No injection or drainage. ENT: No nasal bleeding or discharge. Mucous membranes pink and moist. NECK: Trachea midline. No JVD. CARDIOVASCULAR: Regular rate and rhythm. RESPIRATORY: No accessory muscle use. Clear to auscultation. Breath sounds equal bilaterally. GASTROINTESTINAL: Abdomen soft, non-tender, nondistended. Hepatic and splenic margins not palpable. MUSCULOSKELETAL: Extremities without clubbing, cyanosis, or edema. No obvious deformities. NEUROLOGICAL: Awake and alert. No obvious cranial nerve deficits. Motor grossly within normal limits. Five out of 5 muscle strength in the arms and legs. Normal speech. PSYCHIATRIC: Appropriate mood and affect; insight and judgment normal. Procedures HAD NUCLEAR STRESS TEST 9-8 Medications and IVs Current Medications Sodium Chloride (NS Flush) 2 ml UNSCH PRN IVF FLUSH AFTER USING IV ACCESS Last administered on 04/15/17t 10:50; Start 04/15/17 at 10:15; Stop 04/15/17 at 13:40; Status DC Labetalol HCl (Trandate Inj) 10 mg ONCE ONCE IV PUSH Last administered on 10:47; Start 04/15/17 at 10:45; Stop 04/15/17 at 10:46; Status DC Labetalol HCl (Trandate Inj) 10 mg ONCE ONCE IV PUSH Last administered on 12:07; Start 04/15/17 at 11:30; Stop 04/15/17 at 11:31; Status DC Aspirin (Aspirin Chew) 162 mg ONCE ONCE PO Last administered on 04/15/17 12:07 ; Start 04/15/17 at 11:30; Stop 04/15/17 at 11:31; Status DC Nitroglycerin (Nitroglycerin 2% Oint) 1 inch ONCE ONCE TOP Last administered on 04/15/17 12:08; Start 04/15/17 at 11:30; Stop 04/15/17 at 11:31; Status DC Enoxaparin Sodium (Lovenox Inj) 60 mg ONCE ONCE SQ Last administered on 12:08; Start 04/15/17 at 11:30; Stop 04/15/17 at 11:31; Status DC Amlodipine Besylate (Norvasc) 10 mg DAILY PO Last administered on 04/17/17 08: 42; Start 04/15/17 at 14:00 Atorvastatin Calcium (Lipitor) 20 mg HS PO Last administered on 04/16/17 22:10 ; Start 04/15/17 at 21:00 Isosorbide Dinitrate (Isordil) 10 mg BID@0700,1700 PO Last administered on 06:07; Start 04/15/17 at 17:00 Metoprolol Tartrate (Lopressor) 25 mg Q12HR PO Last administered on 04/15/17 14 :21; Start 04/15/17 at 14:00; Stop 04/15/17 at 15:25; Status DC Warfarin Sodium (Coumadin) 5 mg DAILY@1600 PO ; Start 04/15/17 at 16:00; Stop 04/15/17 at 16:00; Status DC Sodium Chloride (NS Flush) 2 ml UNSCH PRN IV FLUSH FLUSH AFTER USING IV ACCESS ; Start 04/15/17 at 13:00; Status UNV Sodium Chloride (NS Flush) 2 ml BID IV FLUSH ; Start 04/15/17 at 21:00; Status UNV Aspirin (Aspirin Chew) 81 mg DAILY PO Last administered on 04/17/17 08:42; Start 04/16/17 at 09:00 Sodium Chloride (NS Flush) 2 ml UNSCH PRN IV FLUSH FLUSH AFTER USING IV ACCESS ; Start 04/15/17 at 13:00 Sodium Chloride (NS Flush) 2 ml BID IV FLUSH Last administered on 04/17/17 08: 42; Start 04/15/17 at 21:00 Acetaminophen (Tylenol) 650 mg Q4H PRN PO TEMP > 100.4; Start 04/15/17 at 13:00 Ondansetron HCl (Zofran Inj) 4 mg Q6H PRN IVP NAUSEA OR VOMITING Last administered on 04/15/17 15:54; Start 04/15/17 at 13:00 Prochlorperazine (Compazine Supp) 25 mg Q12H PRN RECTAL NAUSEA OR VOMITING; Start 04/15/17 at 13:00 Zolpidem Tartrate (Ambien) 5 mg HS PRN PO INSOMNIA; Start 04/15/17 at 13:00 Acetaminophen (Tylenol) 650 mg Q6H PRN PO PAIN SCALE 1 TO 2; Start 04/15/17 at 13:00 Acetaminophen/ Hydrocodone Bitart ([place] 10-325 Mg) 1 tab Q4H PRN PO PAIN SCALE 6 TO 10; Start 04/15/17 at 13:00 Oxycodone/ Acetaminophen (Percocet 5-325 Mg) 1 tab Q6H PRN PO PAIN SCALE 3 TO 5 Last administered on 04/16/17 02:21; Start 04/15/17 at 13:00 Morphine Sulfate (Morphine Inj) 2 mg Q3H PRN IV Pain 3-5; if unable to take PO ; Start 04/15/17 at 13:00 Morphine Sulfate (Morphine Inj) 4 mg Q3H PRN IV Pain 6-10;if unable to take PO ; Start 04/15/17 at 13:00 Naloxone HCl (Narcan Inj) 0.4 mg UNSCH PRN IV SEE LABEL COMMENTS; Start at 13:00 Senna/Docusate Sodium (Kandi-Colace) 1 tab BID PO Last administered on 04/17/17 08:42; Start 04/15/17 at 21:00 Magnesium Hydroxide (Milk Of Magnesia Liq) 30 ml Q12H PRN PO MILD - MODERATE CONSTIPATION; Start 04/15/17 at 13:00 Sennosides (Senokot) 17.2 mg Q12H PRN PO MODERATE - SEVERE CONSTIPATION; Start 04/15/17 at 13:00 Bisacodyl (Dulcolax Supp) 10 mg DAILY PRN RECTAL SEVERE CONSITIPATION; Start at 13:00 Lactulose (Lactulose Liq) 30 ml DAILY PRN PO SEVERE CONSITIPATION; Start at 13:00 Nitroglycerin (Nitrostat Sl) 0.4 mg Q5M PRN SL CHEST PAIN; Start 04/15/17 at 13: 15 Labetalol HCl (Trandate Inj) 20 mg ONCE ONCE IV PUSH Last administered on 13:27; Start 04/15/17 at 13:30; Stop 04/15/17 at 13:31; Status DC Miscellaneous Information ALL NURSING DEPARTME... UNSCH PRN OTHER SEE LABEL COMMENTS; Start 04/15/17 at 16:00; Stop 04/16/17 at 15:59; Status DC Patient Medication Teaching (Coumadin Booklet) 1 ONCE ONCE OTHER Last administered on 04/15/17 17:37; Start 04/15/17 at 16:00; Stop 04/15/17 at 16:01; Status DC Enoxaparin Sodium (Lovenox Inj) 60 mg Q12H SQ ; Start 04/15/17 at 23:00; Stop 04/15/17 at 23:00; Status DC Metoprolol Tartrate (Lopressor) 50 mg Q12HR PO Last administered on 04/17/17 08 :42; Start 04/15/17 at 21:00 Clonidine (Catapres) 0.1 mg Q4H PRN PO SBP>160, DBP>90 Last administered on 04/17 06:46; Start 04/15/17 at 15:30 Hydralazine HCl (Apresoline Inj) 20 mg Q4H PRN IV PUSH SBP>160, DBP>90 Last administered on 04/15/17 15:53; Start 04/15/17 at 15:30 Regadenoson (Lexiscan Inj) 0.4 mg STK-MED ONCE .ROUTE Last administered on 11:22; Start 04/16/17 at 11:22; Stop 04/16/17 at 11:23; Status DC Warfarin Sodium (Coumadin) 5 mg DAILY@1600 PO Last administered on 04/16/17 17: 22; Start 04/16/17 at 16:00; Status Future Hold Heparin Sodium/ Dextrose 250 ml @ 8 mls/hr TITRATE IV Last administered on 11:20; Start 04/17/17 at 11:00 Heparin Sodium (Porcine) (Heparin Inj) 5,000 units UNSCH PRN IV aPTT less than 25; Start 04/17/17 at 11:00 Heparin Sodium (Porcine) (Heparin Inj) 2,500 units UNSCH PRN IV aPTT 25 to 39; Start 04/17/17 at 11:00 Urinary Catheter: No Vascular Central Line Catheter: No A/P Problem List: (1) Noncompliance ICD Code: Z91.19 - Patient's noncompliance with other medical treatment and regimen (2) Adjustment disorder with depressed mood ICD Code: F43.21 - Adjustment disorder with depressed mood Status: Acute (3) Schizo-affective schizophrenia, chronic condition ICD Code: F25.8 - Other schizoaffective disorders Status: Acute (4) Chronic kidney disease, stage 3 ICD Code: N18.3 - Chronic kidney disease, stage 3 (moderate) Status: Acute (5) Hypertension ICD Code: I10 - Essential (primary) hypertension Status: Chronic (6) New onset atrial fibrillation ICD Code: I48.91 - Unspecified atrial fibrillation Status: Acute (7) Acute kidney injury ICD Code: N17.9 - Acute kidney failure, unspecified Status: Acute (8) Elevated troponin I level ICD Code: R79.89 - Other specified abnormal findings of blood chemistry Status: Acute (9) Chest pain ICD Code: R07.9 - Chest pain, unspecified Status: Acute Assessment and Plan Chest pain with what sounds like chronic ischemic heart disease Elevated troponins suspect non-ST elevation MIs class 2 SUSPECT DUE TO RENAL FAILURE Chronic renal failure stage III Malignant medical noncompliance Psychiatric disorders Hypertension uncontrolled adjust blood pressure medications continue on statin Hyperlipidemia continue on statin Posttraumatic stress disorder Continue to monitor troponins. We'll get an echocardiogram. EF 30-35% A.m. labs PT and OT to eval and treat Case management for discharge planning I discussed with telecommunications line installer ER and the physician and the patient We will adjust blood pressure medications NEEDS CATH ON 04-19 NOT CLEARED FOR DC Jay Mirza DO Apr 17, 2017 12:21
[2017-04-17 12:34] VITALS: PULSE 78
[2017-04-17 14:56] LABS: HEMOGLOBIN A1b 1.7 %; HEMOGLOBIN LA1C 2.2 %; HEMOGLOBIN P3 5.8 %
[2017-04-17 15:27] VITALS: BP 154/93; PULSE 69; RESP 16; TEMP 98.6; O2SAT 100
[2017-04-17 20:00] VITALS: BP 189/100; PULSE 78; PULSE 86; PULSE 90; RESP 16; TEMP 97.9; O2SAT 99
[2017-04-17] MEDS: ATORVASTATIN 20 MG TAB PO SCH (20:29)
[2017-04-17 20:36] LABS: APTT (PATIENT) 44.9 SEC (24.3-30.1)
[2017-04-18] MEDS: ISOSORBIDE DINITRATE 10 MG TAB PO SCH ×2 (06:26→17:01)
--- NOTE | 2017-04-18 07:54 | PD.CARD.PN ---
Subjective Subjective Remarks No symptoms or complaints Objective Medications Administered Medications Medications (Trade) Dose Ordered Sig/Heladio Route PRN Reason Start Time Stop Time Status Last Admin Dose Admin Amlodipine Besylate (Norvasc) 10 mg DAILY PO 04/15/17 14:00 04/17/17 08:42 Atorvastatin Calcium (Lipitor) 20 mg HS PO 04/15/17 21:00 04/16/17 22:10 Isosorbide Dinitrate (Isordil) 10 mg BID@0700,1700 PO 04/15/17 17:00 04/18/17 06:26 Aspirin (Aspirin Chew) 81 mg DAILY PO 04/16/17 09:00 04/17/17 08:42 Sodium Chloride (NS Flush) 2 ml BID IV FLUSH 04/15/17 21:00 04/17/17 08:42 Ondansetron HCl (Zofran Inj) 4 mg Q6H PRN IVP NAUSEA OR VOMITING 04/15/17 13:00 04/15/17 15:54 Oxycodone/ Acetaminophen (Percocet 5-325 Mg) 1 tab Q6H PRN PO PAIN SCALE 3 TO 5 04/15/17 13:00 04/16/17 02:21 Senna/Docusate Sodium (Kandi-Colace) 1 tab BID PO 04/15/17 21:00 04/17/17 08:42 Metoprolol Tartrate (Lopressor) 50 mg Q12HR PO 04/15/17 21:00 04/17/17 08:42 Clonidine (Catapres) 0.1 mg Q4H PRN PO SBP>160, DBP>90 04/15/17 15:30 04/17/17 06:46 Hydralazine HCl (Apresoline Inj) 20 mg Q4H PRN IV PUSH SBP>160, DBP>90 04/15/17 15:30 04/15/17 15:53 Warfarin Sodium (Coumadin) 5 mg DAILY@1600 PO 04/16/17 16:00 Future Hold 04/16/17 17:22 Heparin Sodium/ Dextrose 250 ml @ 8 mls/hr TITRATE IV 04/17/17 11:00 04/17/17 11:20 Vital Signs / I&O Vital Signs Date Time Temp Pulse Resp B/P (MAP) Pulse Ox O2 Delivery O2 Flow Rate FiO2 04/18/17 04:00 Room Air 04/18/17 00:00 Room Air 04/17/17 20:00 Room Air 04/17/17 20:00 86 04/17/17 20:00 97.9 78 16 189/100 (129) 99 04/17/17 15:42 21 04/17/17 15:27 98.6 69 16 154/93 (113) 100 04/17/17 12:34 78 04/17/17 12:00 97.5 77 16 153/77 (102) 96 04/17/17 08:36 97.2 79 140/93 (109) 96 I/O 04/17/17 04/17/17 04/17/17 04/18/17 04/18/17 04/18/17 07:00 15:00 23:00 07:00 15:00 23:00 Intake Total 960 ml 96 ml Balance 960 ml 96 ml Intake Oral 960 ml IV Total 96 ml # Voids 3 # Bowel Movements 1 Physical Exam GENERAL: This is a well-nourished, well-developed patient, in no apparent distress. CARDIOVASCULAR: Regular rate and rhythm without murmurs, gallops, or rubs. RESPIRATORY: Clear to auscultation. Breath sounds equal bilaterally. No wheezes , rales, or rhonchi. GASTROINTESTINAL: Abdomen soft, non-tender, nondistended. Normal active bowel sounds MUSCULOSKELETAL: Extremities without clubbing, cyanosis, or edema. NEURO: Alert & Oriented x4 to person, place, time, situation. Moves all ext x4 Laboratory Laboratory Tests Test 04/17/17 10:20 04/17/17 19:37 White Blood Count 8.3 TH/MM3 Red Blood Count 4.14 MIL/MM3 Hemoglobin 11.6 GM/DL Hematocrit 36.6 % Mean Corpuscular Volume 88.4 FL Mean Corpuscular Hemoglobin 28.0 PG Mean Corpuscular Hemoglobin Concent 31.7 % Red Cell Distribution Width 14.1 % Platelet Count 155 TH/MM3 Mean Platelet Volume 9.1 FL Prothrombin Time 12.7 SEC Prothromb Time International Ratio 1.1 RATIO Activated Partial Thromboplast Time 32.0 SEC 44.9 SEC Magnesium Level 2.0 MG/DL Total Creatine Kinase 208 U/L Troponin I 2.51 NG/ML Imaging Last Impressions Myocardial Perfusion Scan Nuc Med 04/16/17 0000 Signed Impressions: Service Date/Time: Sunday, April 16, 2017 11:08 - CONCLUSION: The calculated ejection fraction is slightly low with an area of mild ischemia low anterolateral wall. RISK CATEGORY: Low (<1%% Annual Mortality Rate) Roselyn Pemberton MD Chest X-Ray 04/15/17 1013 Signed Impressions: Service Date/Time: April 10:26 - CONCLUSION: 1. Cardiomegaly 2. No acute focal pulmonary infiltrate or pulmonary vascular congestion. Gabriel Nassar MD Assessment and Plan Problem List: (1) Elevated troponin I level ICD Codes: R79.89 - Other specified abnormal findings of blood chemistry Status: Acute (2) Noncompliance ICD Codes: Z91.19 - Patient's noncompliance with other medical treatment and regimen (3) Chronic kidney disease, stage 3 ICD Codes: N18.3 - Chronic kidney disease, stage 3 (moderate) Status: Acute (4) Psychiatric problem ICD Codes: F99 - Mental disorder, not otherwise specified (5) Chest pain ICD Codes: R07.9 - Chest pain, unspecified Status: Acute (6) Hypertension ICD Codes: I10 - Essential (primary) hypertension Status: Chronic (7) Atrial fibrillation ICD Codes: I48.91 - Unspecified atrial fibrillation Assessment and Plan No sx, on heparin, Dr. Godinez plans on cathing in the AM Isai Paulson MD Apr 18, 2017 07:54
[2017-04-18 08:04] VITALS: BP 179/90; PULSE 73; RESP 16; TEMP 97.3; O2SAT 99
[2017-04-18] MEDS: SODIUM CHLORIDE 0.9% FLUSH 10 ML FLUSH IV FLUSH SCH ×2 (08:33→20:16)
[2017-04-18] MEDS: ASPIRIN 81 MG CHEW TAB PO SCH (08:40)
[2017-04-18] MEDS: DOCUSATE SODIUM 50 MG/SENNA 8.6 MG TAB PO SCH ×2 (08:40→20:17)
[2017-04-18] MEDS: METOPROLOL TARTRATE 50 MG TAB PO SCH ×2 (08:40→20:17)
--- NOTE | 2017-04-18 09:32 | EKG ---
Date Performed: 04/17/2017 Time Performed: 08:51:02 PTAGE: 71 years EKG: Atrial fibrillation. Left axis deviation IV conduction defect Poor R wave progression - can not rule out anteroseptal infarct Left ventricular hypertrophy Lateral ST-T changes are probably due to ventricular hypertrophy Compared to prior tracing no significant change Abnormal ECG PREVIOUS TRACING : 04/15/2017 10.04 DOCTOR: Isai Paulson Interpretating Date/Time 04/18/2017 09:30:04
[2017-04-18 11:54] LABS: AUTOMATED NEUTROPHIL # 3.7 TH/MM3 (1.8-7.7); BASOPHIL % 0.7 % (0.0-2.0); EOSINOPHIL # 0.2 TH/MM3 (0-0.4); EOSINOPHIL % 2.8 % (0.0-4.0); HEMATOCRIT 36.6 % (39.0-51.0); HEMO FLAGS DIFF FINAL; LYMPH % 21.1 % (9.0-44.0); LYMPHOCYTE # 1.3 TH/MM3 (1.0-4.8); MEAN CELL VOLUME 88.2 FL (80.0-100.0); MEAN CORPUSCULAR HEMOGLOBIN 28.6 PG (27.0-34.0); MEAN CORPUSCULAR HGB CONC 32.4 % (32.0-36.0); MONO % 14.6 % (0.0-8.0); NEUT % 60.8 % (16.0-70.0); PLATELET COUNT 144 TH/MM3 (150-450); RED BLOOD COUNT 4.15 MIL/MM3 (4.50-5.90); RED CELL DISTRIBUTION WIDTH 14.1 % (11.6-17.2); WHITE BLOOD COUNT 6.1 TH/MM3 (4.0-11.0)
[2017-04-18 12:03] VITALS: BP 173/90; PULSE 80; RESP 16; TEMP 98.5; O2SAT 99
[2017-04-18 12:19] LABS: ANION GAP 8 MEQ/L (5-15); APTT (PATIENT) 33.4 SEC (24.3-30.1); AST (GOT) 28 U/L (15-37); BICARBONATE 26.7 MEQ/L (21.0-32.0); BLOOD UREA NITROGEN 29 MG/DL (7-18); CHLORIDE 104 MEQ/L (98-107); GLOMERULAR FILTRATION RATE 44 ML/MIN (>89); INTERNATIONAL NORMALIZED RATIO 1.1 RATIO; MAGNESIUM 2.1 MG/DL (1.5-2.5); POTASSIUM 3.4 MEQ/L (3.5-5.1); PROTHROMBIN TIME - PATIENT 12.7 SEC (9.8-11.6); SODIUM (NA) 139 MEQ/L (136-145)
[2017-04-18 12:20] LABS: ALT (GPT) 23 U/L (12-78)
[2017-04-18 12:24] LABS: ALKALINE PHOSPHATASE 93 U/L (45-117); TOTAL BILIRUBIN ADULT 0.7 MG/DL (0.2-1.0)
--- NOTE | 2017-04-18 13:52 | HHI.PR ---
Subjective Remarks Patient is a 71-year-old male who is normally followed at the [facility]. He was seen there today and was sent over to the hospital regarding chest pain. Patient has a extensive cardiac history with a history of bypass of 5 vessels.. Patient has history of psychiatric disorder also so history is not very reliable Patient has chest discomfort especially when he lies down at night does not get it when he moves around. It is a pressure-like feeling like an elephant on his chest. Denies any chest pain at this time. States that he's had this on and off for the past 2 weeks Patient has posterior medics stress disorder also Patient's blood pressures completely uncontrolled. Will be admitted. His troponins are elevated. Will be monitored by cardiology and trended. We'll get an echo. We'll continue to follow him throughout the admission 04-16 HAD STRESS TEST TODAY RELOAD COUMADIN CARDIAC DIET DW RN AND PT 04-17 TO HAVE CARDIAC CATH 04-19 NO NEW COMPLAINTS NOT CLEARED BY CARDIO FOR DC TROPONINS MORE ELEVATED 04-18 TO HAVE CARDIAC CATH TOMORROW NO NEW COMPLAINTS Objective Vitals Vital Signs Date Time Temp Pulse Resp B/P (MAP) Pulse Ox O2 Delivery O2 Flow Rate FiO2 04/18/17 12:03 98.5 80 16 173/90 (117) 99 04/18/17 11:34 Room Air 21 04/18/17 08:04 97.3 73 16 179/90 (119) 99 04/18/17 04:00 Room Air 04/18/17 00:00 Room Air 04/17/17 20:00 Room Air 04/17/17 20:00 86 04/17/17 20:00 97.9 78 16 189/100 (129) 99 04/17/17 15:42 21 04/17/17 15:27 98.6 69 16 154/93 (113) 100 I/O 04/17/17 04/17/17 04/17/17 04/18/17 04/18/17 04/18/17 06:59 14:59 22:59 06:59 14:59 22:59 Intake Total 960 ml 96 ml Balance 960 ml 96 ml Intake Oral 960 ml IV Total 96 ml # Voids 3 # Bowel Movements 1 Result Diagram: 04/18/17 1140 04/18/17 1140 Other Results Laboratory Tests Test 04/15/17 20:35 04/17/17 06:22 04/17/17 10:20 04/17/17 19:37 Total Creatine Kinase 61 U/L 219 U/L 208 U/L Troponin I 0.10 NG/ML 5.26 NG/ML 2.51 NG/ML White Blood Count 8.0 TH/MM3 8.3 TH/MM3 Red Blood Count 4.29 MIL/MM3 4.14 MIL/MM3 Hemoglobin 12.3 GM/DL 11.6 GM/DL Hematocrit 37.6 % 36.6 % Mean Corpuscular Volume 87.8 FL 88.4 FL Mean Corpuscular Hemoglobin 28.7 PG 28.0 PG Mean Corpuscular Hemoglobin Concent 32.7 % 31.7 % Red Cell Distribution Width 14.2 % 14.1 % Platelet Count 157 TH/MM3 155 TH/MM3 Mean Platelet Volume 9.3 FL 9.1 FL Neutrophils (%) (Auto) 69.6 % Lymphocytes (%) (Auto) 16.4 % Monocytes (%) (Auto) 11.9 % Eosinophils (%) (Auto) 1.5 % Basophils (%) (Auto) 0.6 % Neutrophils # (Auto) 5.6 TH/MM3 Lymphocytes # (Auto) 1.3 TH/MM3 Monocytes # (Auto) 0.9 TH/MM3 Eosinophils # (Auto) 0.1 TH/MM3 Basophils # (Auto) 0.0 TH/MM3 CBC Comment DIFF FINAL Differential Comment Prothrombin Time 11.9 SEC 12.7 SEC Prothromb Time International Ratio 1.1 RATIO 1.1 RATIO Blood Urea Nitrogen 33 MG/DL Creatinine 1.85 MG/DL Random Glucose 97 MG/DL Total Protein 7.1 GM/DL Albumin 3.3 GM/DL Calcium Level 8.6 MG/DL Phosphorus Level 2.9 MG/DL Magnesium Level 2.3 MG/DL 2.0 MG/DL Alkaline Phosphatase 96 U/L Aspartate Amino Transf (AST/SGOT) 31 U/L Alanine Aminotransferase (ALT/SGPT) 20 U/L Total Bilirubin 0.9 MG/DL Sodium Level 140 MEQ/L Potassium Level 3.5 MEQ/L Chloride Level 106 MEQ/L Carbon Dioxide Level 26.3 MEQ/L Anion Gap 8 MEQ/L Estimat Glomerular Filtration Rate 36 ML/MIN Hemoglobin A1c 6.3 % Free Thyroxine 0.90 NG/DL Thyroid Stimulating Hormone 3rd Gen 0.731 uIU/ML Activated Partial Thromboplast Time 32.0 SEC 44.9 SEC Test 04/18/17 11:40 White Blood Count 6.1 TH/MM3 Red Blood Count 4.15 MIL/MM3 Hemoglobin 11.9 GM/DL Hematocrit 36.6 % Mean Corpuscular Volume 88.2 FL Mean Corpuscular Hemoglobin 28.6 PG Mean Corpuscular Hemoglobin Concent 32.4 % Red Cell Distribution Width 14.1 % Platelet Count 144 TH/MM3 Mean Platelet Volume 9.2 FL Neutrophils (%) (Auto) 60.8 % Lymphocytes (%) (Auto) 21.1 % Monocytes (%) (Auto) 14.6 % Eosinophils (%) (Auto) 2.8 % Basophils (%) (Auto) 0.7 % Neutrophils # (Auto) 3.7 TH/MM3 Lymphocytes # (Auto) 1.3 TH/MM3 Monocytes # (Auto) 0.9 TH/MM3 Eosinophils # (Auto) 0.2 TH/MM3 Basophils # (Auto) 0.0 TH/MM3 CBC Comment DIFF FINAL Differential Comment Prothrombin Time 12.7 SEC Prothromb Time International Ratio 1.1 RATIO Activated Partial Thromboplast Time 33.4 SEC Blood Urea Nitrogen 29 MG/DL Creatinine 1.56 MG/DL Random Glucose 124 MG/DL Total Protein 6.6 GM/DL Albumin 3.0 GM/DL Calcium Level 8.8 MG/DL Phosphorus Level 2.2 MG/DL Magnesium Level 2.1 MG/DL Alkaline Phosphatase 93 U/L Aspartate Amino Transf (AST/SGOT) 28 U/L Alanine Aminotransferase (ALT/SGPT) 23 U/L Total Bilirubin 0.7 MG/DL Sodium Level 139 MEQ/L Potassium Level 3.4 MEQ/L Chloride Level 104 MEQ/L Carbon Dioxide Level 26.7 MEQ/L Anion Gap 8 MEQ/L Estimat Glomerular Filtration Rate 44 ML/MIN Troponin I 1.84 NG/ML Imaging Last Impressions Myocardial Perfusion Scan Nuc Med 04/16/17 0000 Signed Impressions: Service Date/Time: Sunday, April 16, 2017 11:08 - CONCLUSION: The calculated ejection fraction is slightly low with an area of mild ischemia low anterolateral wall. RISK CATEGORY: Low (<1%% Annual Mortality Rate) Roselyn Pemberton MD Chest X-Ray 04/15/17 1013 Signed Impressions: Service Date/Time: April 10:26 - CONCLUSION: 1. Cardiomegaly 2. No acute focal pulmonary infiltrate or pulmonary vascular congestion. Gabriel Nassar MD Objective Remarks GENERAL: SKIN: Warm and dry. HEAD: Atraumatic. Normocephalic. EYES: Pupils equal and round. No scleral icterus. No injection or drainage. ENT: No nasal bleeding or discharge. Mucous membranes pink and moist. NECK: Trachea midline. No JVD. CARDIOVASCULAR: Regular rate and rhythm. RESPIRATORY: No accessory muscle use. Clear to auscultation. Breath sounds equal bilaterally. GASTROINTESTINAL: Abdomen soft, non-tender, nondistended. Hepatic and splenic margins not palpable. MUSCULOSKELETAL: Extremities without clubbing, cyanosis, or edema. No obvious deformities. NEUROLOGICAL: Awake and alert. No obvious cranial nerve deficits. Motor grossly within normal limits. Five out of 5 muscle strength in the arms and legs. Normal speech. PSYCHIATRIC: Appropriate mood and affect; insight and judgment normal. Procedures HAD NUCLEAR STRESS TEST 9-8 Medications and IVs Current Medications Sodium Chloride (NS Flush) 2 ml UNSCH PRN IVF FLUSH AFTER USING IV ACCESS Last administered on 04/15/17 10:50; Start 04/15/17 at 10:15; Stop 04/15/17 at 13:40; Status DC Labetalol HCl (Trandate Inj) 10 mg ONCE ONCE IV PUSH Last administered on 10:47; Start 04/15/17 at 10:45; Stop 04/15/17 at 10:46; Status DC Labetalol HCl (Trandate Inj) 10 mg ONCE ONCE IV PUSH Last administered on 12:07; Start 04/15/17 at 11:30; Stop 04/15/17 at 11:31; Status DC Aspirin (Aspirin Chew) 162 mg ONCE ONCE PO Last administered on 04/15/17 12:07 ; Start 04/15/17 at 11:30; Stop 04/15/17 at 11:31; Status DC Nitroglycerin (Nitroglycerin 2% Oint) 1 inch ONCE ONCE TOP Last administered on 04/15/17 12:08; Start 04/15/17 at 11:30; Stop 04/15/17 at 11:31; Status DC Enoxaparin Sodium (Lovenox Inj) 60 mg ONCE ONCE SQ Last administered on 12:08; Start 04/15/17 at 11:30; Stop 04/15/17 at 11:31; Status DC Amlodipine Besylate (Norvasc) 10 mg DAILY PO Last administered on 04/18/17 08: 40; Start 04/15/17 at 14:00 Atorvastatin Calcium (Lipitor) 20 mg HS PO Last administered on 04/16/17 22:10 ; Start 04/15/17 at 21:00 Isosorbide Dinitrate (Isordil) 10 mg BID@0700,1700 PO Last administered on 04/18 06:26; Start 04/15/17 at 17:00 Metoprolol Tartrate (Lopressor) 25 mg Q12HR PO Last administered on 04/15/17 14 :21; Start 04/15/17 at 14:00; Stop 04/15/17 at 15:25; Status DC Warfarin Sodium (Coumadin) 5 mg DAILY@1600 PO ; Start 04/15/17 at 16:00; Stop 04/15/17 at 16:00; Status DC Sodium Chloride (NS Flush) 2 ml UNSCH PRN IV FLUSH FLUSH AFTER USING IV ACCESS ; Start 04/15/17 at 13:00; Status UNV Sodium Chloride (NS Flush) 2 ml BID IV FLUSH ; Start 04/15/17 at 21:00; Status UNV Aspirin (Aspirin Chew) 81 mg DAILY PO Last administered on 04/18/17 08:40; Start 04/16/17 at 09:00 Sodium Chloride (NS Flush) 2 ml UNSCH PRN IV FLUSH FLUSH AFTER USING IV ACCESS ; Start 04/15/17 at 13:00 Sodium Chloride (NS Flush) 2 ml BID IV FLUSH Last administered on 04/18/17 08: 33; Start 04/15/17 at 21:00 Acetaminophen (Tylenol) 650 mg Q4H PRN PO TEMP > 100.4; Start 04/15/17 at 13:00 Ondansetron HCl (Zofran Inj) 4 mg Q6H PRN IVP NAUSEA OR VOMITING Last administered on 04/15/17 15:54; Start 04/15/17 at 13:00 Prochlorperazine (Compazine Supp) 25 mg Q12H PRN RECTAL NAUSEA OR VOMITING; Start 04/15/17 at 13:00 Zolpidem Tartrate (Ambien) 5 mg HS PRN PO INSOMNIA; Start 04/15/17 at 13:00 Acetaminophen (Tylenol) 650 mg Q6H PRN PO PAIN SCALE 1 TO 2; Start 04/15/17 at 13:00 Acetaminophen/ Hydrocodone Bitart (Divide 10-325 Mg) 1 tab Q4H PRN PO PAIN SCALE 6 TO 10; Start 04/15/17 at 13:00 Oxycodone/ Acetaminophen (Percocet 5-325 Mg) 1 tab Q6H PRN PO PAIN SCALE 3 TO 5 Last administered on 04/16/17 02:21; Start 04/15/17 at 13:00 Morphine Sulfate (Morphine Inj) 2 mg Q3H PRN IV Pain 3-5; if unable to take PO ; Start 04/15/17 at 13:00 Morphine Sulfate (Morphine Inj) 4 mg Q3H PRN IV Pain 6-10;if unable to take PO ; Start 04/15/17 at 13:00 Naloxone HCl (Narcan Inj) 0.4 mg UNSCH PRN IV SEE LABEL COMMENTS; Start at 13:00 Senna/Docusate Sodium (Kandi-Colace) 1 tab BID PO Last administered on 08:40; Start 04/15/17 at 21:00 Magnesium Hydroxide (Milk Of Magnesia Liq) 30 ml Q12H PRN PO MILD - MODERATE CONSTIPATION; Start 04/15/17 at 13:00 Sennosides (Senokot) 17.2 mg Q12H PRN PO MODERATE - SEVERE CONSTIPATION; Start 04/15/17 at 13:00 Bisacodyl (Dulcolax Supp) 10 mg DAILY PRN RECTAL SEVERE CONSITIPATION; Start at 13:00 Lactulose (Lactulose Liq) 30 ml DAILY PRN PO SEVERE CONSITIPATION; Start at 13:00 Nitroglycerin (Nitrostat Sl) 0.4 mg Q5M PRN SL CHEST PAIN; Start 04/15/17 at 13: 15 Labetalol HCl (Trandate Inj) 20 mg ONCE ONCE IV PUSH Last administered on 13:27; Start 04/15/17 at 13:30; Stop 04/15/17 at 13:31; Status DC Miscellaneous Information ALL NURSING DEPARTME... UNSCH PRN OTHER SEE LABEL COMMENTS; Start 04/15/17 at 16:00; Stop 04/16/17 at 15:59; Status DC Patient Medication Teaching (Coumadin Booklet) 1 ONCE ONCE OTHER Last administered on 04/15/17 17:37; Start 04/15/17 at 16:00; Stop 04/15/17 at 16:01; Status DC Enoxaparin Sodium (Lovenox Inj) 60 mg Q12H SQ ; Start 04/15/17 at 23:00; Stop 04/15/17 at 23:00; Status DC Metoprolol Tartrate (Lopressor) 50 mg Q12HR PO Last administered on 04/18/17 08:40; Start 04/15/17 at 21:00 Clonidine (Catapres) 0.1 mg Q4H PRN PO SBP>160, DBP>90 Last administered on 04/17 06:46; Start 04/15/17 at 15:30 Hydralazine HCl (Apresoline Inj) 20 mg Q4H PRN IV PUSH SBP>160, DBP>90 Last administered on 04/15/17 15:53; Start 04/15/17 at 15:30 Regadenoson (Lexiscan Inj) 0.4 mg STK-MED ONCE .ROUTE Last administered on 11:22; Start 04/16/17 at 11:22; Stop 04/16/17 at 11:23; Status DC Warfarin Sodium (Coumadin) 5 mg DAILY@1600 PO Last administered on 04/16/17 17: 22; Start 04/16/17 at 16:00; Status Future Hold Heparin Sodium/ Dextrose 250 ml @ 8 mls/hr TITRATE IV Last administered on 11:20; Start 04/17/17 at 11:00 Heparin Sodium (Porcine) (Heparin Inj) 5,000 units UNSCH PRN IV aPTT less than 25; Start 04/17/17 at 11:00 Heparin Sodium (Porcine) (Heparin Inj) 2,500 units UNSCH PRN IV aPTT 25 to 39; Start 04/17/17 at 11:00 Urinary Catheter: No Vascular Central Line Catheter: No A/P Problem List: (1) Noncompliance ICD Code: Z91.19 - Patient's noncompliance with other medical treatment and regimen (2) Adjustment disorder with depressed mood ICD Code: F43.21 - Adjustment disorder with depressed mood Status: Acute (3) Schizo-affective schizophrenia, chronic condition ICD Code: F25.8 - Other schizoaffective disorders Status: Acute (4) Chronic kidney disease, stage 3 ICD Code: N18.3 - Chronic kidney disease, stage 3 (moderate) Status: Acute (5) Hypertension ICD Code: I10 - Essential (primary) hypertension Status: Chronic (6) New onset atrial fibrillation ICD Code: I48.91 - Unspecified atrial fibrillation Status: Acute (7) Acute kidney injury ICD Code: N17.9 - Acute kidney failure, unspecified Status: Acute (8) Elevated troponin I level ICD Code: R79.89 - Other specified abnormal findings of blood chemistry Status: Acute (9) Chest pain ICD Code: R07.9 - Chest pain, unspecified Status: Acute Assessment and Plan Chest pain with what sounds like chronic ischemic heart disease Elevated troponins suspect non-ST elevation MIs class 2 SUSPECT DUE TO RENAL FAILURE Chronic renal failure stage III Malignant medical noncompliance Psychiatric disorders Hypertension uncontrolled adjust blood pressure medications continue on statin Hyperlipidemia continue on statin Posttraumatic stress disorder Continue to monitor troponins. We'll get an echocardiogram. EF 30-35% A.m. labs PT and OT to eval and treat Case management for discharge planning I discussed with media sales consultant ER and the physician and the patient We will adjust blood pressure medications NEEDS CATH ON 04-19 NOT CLEARED FOR DC HYPOKALEMIA WILL REPLACE Jay Mirza DO Apr 18, 2017 13:52
[2017-04-18] MEDS ORDERED: POTASSIUM CHLORIDE 10 MEQ CONTROLLED RELEASE TAB PO ONE (14:00)
[2017-04-18] MEDS ORDERED: POTASSIUM PHOSPHATE INJ 30 MMOL in SODIUM CHLOR 0.9% 250 ML INJ 250 ML IV ONE (14:00)
[2017-04-18] MEDS ORDERED: diphenhydrAMINE HCL 50 MG CAP PO SCH (15:15)
[2017-04-18] MEDS ORDERED: DIAZEPAM 5 MG TAB PO PRN (15:15)
[2017-04-18] MEDS: SODIUM CHLOR 0.9% 1000 ML INJ 1,000 ML IV SCH (15:47)
[2017-04-18 16:03] VITALS: BP 176/87; PULSE 82; RESP 18; TEMP 98.4; O2SAT 99
[2017-04-18] MEDS: HEPARIN 25,000 UNITS-D5W 250 ML - PREMIX IV SCH (16:40)
[2017-04-18 20:00] VITALS: BP 206/104; PULSE 84; PULSE 97; RESP 20; TEMP 98.1; O2SAT 100
[2017-04-18] MEDS: ATORVASTATIN 20 MG TAB PO SCH (20:17)
[2017-04-19] VITALS (18 sets, daily range): BP systolic 119–187; BP diastolic 76–108; PULSE 60–92; RESP 18–20; TEMP 97.6–98.4; O2SAT 97–100
[2017-04-19] MEDS: SODIUM CHLOR 0.9% 1000 ML INJ 1,000 ML IV SCH ×4 (01:03→18:35)
[2017-04-19] MEDS: ISOSORBIDE DINITRATE 10 MG TAB PO SCH ×2 (06:16→16:37)
[2017-04-19] MEDS ORDERED: HEPARIN-NS/PF INJ 1,000 ML ONE (07:39)
[2017-04-19] MEDS ORDERED: MIDAZOLAM HCL 2 MG/2 ML VIAL ONE (07:41)
[2017-04-19] MEDS ORDERED: HEPARIN SODIUM - IV 10,000 UNITS/10 ML VIAL ONE (07:42)
[2017-04-19] MEDS: SODIUM CHLORIDE 0.9% FLUSH 10 ML FLUSH IV FLUSH SCH ×2 (07:43→21:00)
[2017-04-19 08:14] LABS: BASOPHIL # 0.1 TH/MM3 (0-0.2); BASOPHIL % 0.8 % (0.0-2.0); EOSINOPHIL # 0.3 TH/MM3 (0-0.4); EOSINOPHIL % 3.7 % (0.0-4.0); HEMATOCRIT 41.1 % (39.0-51.0); HEMO FLAGS DIFF FINAL; LYMPH % 23.7 % (9.0-44.0); MEAN CELL VOLUME 88.5 FL (80.0-100.0); MEAN CORPUSCULAR HEMOGLOBIN 28.4 PG (27.0-34.0); MEAN CORPUSCULAR HGB CONC 32.1 % (32.0-36.0); NEUT % 59.8 % (16.0-70.0); PLATELET COUNT 167 TH/MM3 (150-450); RED BLOOD COUNT 4.65 MIL/MM3 (4.50-5.90); RED CELL DISTRIBUTION WIDTH 14.6 % (11.6-17.2); WHITE BLOOD COUNT 8.3 TH/MM3 (4.0-11.0)
[2017-04-19 08:32] LABS: ANION GAP 7 MEQ/L (5-15); AST (GOT) 28 U/L (15-37); BICARBONATE 26.9 MEQ/L (21.0-32.0); BLOOD UREA NITROGEN 27 MG/DL (7-18); CHLORIDE 101 MEQ/L (98-107); GLOMERULAR FILTRATION RATE 52 ML/MIN (>89); MAGNESIUM 2.2 MG/DL (1.5-2.5); POTASSIUM 3.7 MEQ/L (3.5-5.1); SODIUM (NA) 135 MEQ/L (136-145)
[2017-04-19 08:34] LABS: ALT (GPT) 26 U/L (12-78)
[2017-04-19 08:35] LABS: INTERNATIONAL NORMALIZED RATIO 1.1 RATIO; PROTHROMBIN TIME - PATIENT 12.5 SEC (9.8-11.6)
[2017-04-19 08:36] LABS: ALKALINE PHOSPHATASE 105 U/L (45-117); TOTAL BILIRUBIN ADULT 0.9 MG/DL (0.2-1.0)
[2017-04-19 08:39] LABS: APTT (PATIENT) 96.2 SEC (24.3-30.1)
[2017-04-19] MEDS ORDERED: diphenhydrAMINE HCL 50 MG CAP PO SCH (08:45)
[2017-04-19] MEDS ORDERED: ASPIRIN 325 MG TAB PO SCH (08:45)
[2017-04-19] MEDS ORDERED: DIAZEPAM 5 MG TAB PO SCH (08:45)
[2017-04-19] MEDS ORDERED: BIVALIRUDIN 250 MG VIAL ONE ×2 (09:02→10:05)
[2017-04-19] MEDS ORDERED: NITROGLYCERIN-D5W 50 MG/250 ML 250 ML ONE (09:32)
[2017-04-19] MEDS ORDERED: CLOPIDOGREL 300 MG TAB ONE (10:02)
[2017-04-19] MEDS ORDERED: BIVALIRUDIN INJ 250 MG in SODIUM CHLORIDE 0.9% INJ 50 ML IV SCH (10:26)
[2017-04-19] MEDS ORDERED: SODIUM CHLOR 0.9% 1000 ML INJ 1,000 ML IV SCH (10:26)
--- NOTE | 2017-04-19 10:28 | CATHPROC ---
[facility] HIS Report Study Information Study Number Admission Scheduled Start Study Start [id number] Apr 15 2017 12:59PM 04/18/2017 Apr 19 2017 7:31AM Black Service Cardiac Catheterization Admit Source Facility Department Other [facility] - Stock Checker Physician and Clinical Staff Initial Vernon Mathis Warehouse Director Alissa Zhang,FORTUNATO Warehouse Director Lois Lewis RN Other cathlab, cathlab Recorder Adriano Castro RCIS(BS) Scrub Jaquelin Mitchell RCIS TECH2 Procedures Performed Procedure Location (Site) Vessel Name Coronary Angiograms LCA Left Coronary Coronary Angiograms RCA Right Coronary Coronary Angiograms ESPINOZA-LAD Left Coronary Coronary Angiograms SVG-DIAG Left Coronary Coronary Angiograms SVG-OM CIRC Coronary Angiograms SVG-RCA Right Coronary L Heart Cath PTCA SVG-RCA Right Coronary PTCA LEFT MAIN ARTERY-(11 Left Coronary Stent SVG-RCA Right Coronary Stent LEFT MAIN ARTERY-(11 Left Coronary Wire insertion Fem Art (right) Femoral Art Equipment Time Shock Absorption Floor Layer Description Size Mfg Part Number Used/Scraped WIRE, BALANCE MIDDLEWEIGHT [id number] 09:04 [employer] 190CM Used 190CM *[id number] TRANSDUCER, TRUWAVE [id number] 07:34 BARON LASSITER * Used W/STOCKCOCK *[id number] 09:56 [employer] BALLOON, 2.0 15MM EMERGE MR 2.0 15MM Used *[id number] [id number] *[id number] 534-660T *[id number] 534-620T *[id number] 534-621T *[id number] [phone] *[id number] 534-642T *[id number] [phone] *8758891 670-182-00 *[id number] 670-056-00 *9170427 [phone] *[id number] 10:14 DAIG/[employer] ANGIOSEAL, FR6 VIP FR 6 Used *[id number] WIRE, HYDROSTEER 150CM [id number] 09:09 DAIG/[employer] 150CM Used ANGLED GLIDE *[id number] 07:34 MEDLINE IND[employer]ES PACK, CCL CUSTOM * Used *[id number] 07:34 MEDLINE PACER PEN, SKIN DUAL W/ RULER * Used *[id number] BALLOON, 2.5 X 15MM NC [id number] 09:32 MEDTRONIC 15MM Used EUPHORA *[id number] BALLOON, 3.5 X 8MM NC [id number] 10:04 MEDTRONIC 8MM Used EUPHORA *[id number] BALLOON, 4.0 X 12MM NC [id number] 09:41 MEDTRONIC 12MM Used EUPHORA *[id number] [id number] 10:00 MEDTRONIC STENT, 2.75 8 INTEGRITY 2.75 8 Used *9861255 [id number] 09:36 MEDTRONIC STENT, 3.0 15 INTEGRITY 3.0 15 Used *[id number] 09:04 [employer] 30 JOHNY INDEFLATOR Used *[id number] 07:34 [employer] SHEATH, FR6.5 PRELUDE 11CM FR 6.5 038ACT Used *[id number] 10:09 [employer] SHEATH, FR6.5 PRELUDE 11CM FR 6.5 038ACT Used *8825513 [id number] 07:34 [employer] WIRE, 3MMJ .035 180CM 180CM Used *3430804 [id number] 09:14 [employer] WIRE, EXCHANGE 260CM 3MMJ 260CM Used *9693940 [id number] 09:14 [employer] WIRE, EXCHANGE 260CM 3MMJ 260CM Used *[id number] 07:34 NAMIC MANIFOLD, 4 PORT * Used *[id number] 07:34 NYCOMED OMNIPAQUE, 350 MG, 100ML 100ML [id number] Used 09:23 NYCOMED OMNIPAQUE, 350 MG, 150ML 150ML [id number] Used [id number] 07:34 [employer] BLANKET,WARM AIR CCL * Used *[id number] SHEATH, FR6 PINNACLE [id number] 09:20 TER[employer] MEDICAL/JULITO FR 6 Used DESTINATION 45CM *[id number] Equipment Model, Serial, Lot Number and Expiration Data Description Model Number Serial Number Lot Number Expiration Date BALLOON, 2.0 15MM EMERGE MR [id number] 09-29-2019 BALLOON, 2.5 X 15MM NC [id number] 10-21-2018 EUPHORA BALLOON, 3.5 X 8MM NC EUPHORA [id number] 07-22-2018 BALLOON, 4.0 X 12MM NC [id number] 06-18-2018 EUPHORA SHEATH, FR6.5 PRELUDE 11CM [id number] 02-06-2020 STENT, 2.75 8 INTEGRITY [id number] 10-27-2018 STENT, 3.0 15 INTEGRITY [id number] 11-04-2018 WIRE, HYDROSTEER 150CM [id number] 11-07-2019 ANGLED GLIDE History: Current Medications Medication Dosage/Unit Route Frequency Last Date/Time Taken Statins (any) Beta Karen Imdur ASA Coumadin NORVASC History: Allergies Allergy Reaction lisinopril penicillin G wool History: Risk Factors Family History of Hypertension Dyslipidemia Previous OR Previous Heart Failure Premature CAD Yes Yes No Yes No Prior Valve Prior PCI Prior CABG Surgery No No Yes Cerebrovascular Peripheral Artery Chronic Lung On Dialysis Diabetes Disease Disease Disease No No No No No History: Symptoms/Diagnosis Selection Items Chest pain History: Stress Tests Stress or Imaging Studies Performed Yes Standard Exercise Stress Test No Stress Echo No Stress Test SPECT Stress Test SPECT Result Stress Test SPECT Ischemia Risk/Extent Yes Positive High Stress Test CMR No Cardiac CTA Coronary Calcium Score No No History: Other Disease Selection Items CAD HTN History: Other Current Smoker No Labs Hgb (g/dl) Hct (%) RBC (MIL/MM3) WBC (l/cumm) Platelets (thousands) 11.60-17.00 35.00-51.00 4.00-5.90 4.00-11.00 150.00-450.00 11.9 36.6 4.1 6.1 144 Glucose (mg/dl) BUN (mg/dl) Creatinine (mg/dl) BUN:Creatinine (1:x) 74.00-106.00 7.00-18.00 0.50-1.30 10.00-20.00 124 8 1.5 5.3 Na (meq/l) K (meq/l) Cl (meq/l) CO2 (mmol/L) Ca (mg/dl) 136.00-145.00 3.50-5.10 98.00-107.00 21.00-32.00 8.50-10.10 139 3.4 104 26.7 8.8 INR (PTT:PT) 0.90-1.10 1.1 Troponin I (ng/ml) CPK (u/l) CPK-MB (ng/ML) 0.02-0.05 26.00-308.00 0.50-3.60 1.84 208 Not Drawn Medication Medication Total Dose (Bolus/Oral) Medication Total Dosage/Unit 1% XYLOCAINE 20 mL ANGIOMAX BOLUS 10 mL PLAVIX 600 mg VERSED 1 mg Medications (Bolus/Oral) Medication Time Given Dosage/Unit Administered By Reason VERSED 04/19/2017 8:40:07 AM 1 mg Lois Lewis 1 mg VERSED given in lab by Lois Lewis RN in Right Wrist via Peripheral IV. Ordered by Larisa Godinez. 1% XYLOCAINE 04/19/2017 8:40:18 AM 20 mL Vernon Godinez 20 mL 1% XYLOCAINE given in lab by Vernon Godinez in Right Groin via Subcutaneous. ANGIOMAX BOLUS 04/19/2017 9:05:19 AM 10 mL Alissa Zhang 10 mL ANGIOMAX BOLUS given in lab by Alissa Zhang RN in Right Wrist via Peripheral IV. Ordered by Vernon Godinez. PLAVIX 04/19/2017 10:19:36 AM 600 mg Alissa Zhang 600 mg PLAVIX given in lab by Alissa Zhang RN via Oral. Ordered by Vernon Godinez. Medication (Drip) Medication Time Given Dosage/Unit Concentration/Unit Diluent (ml) Solution ANGIOMAX DRIP 04/19/2017 9:06:10 AM 1.75 mg/kg/hr 250 mg 50 NaCl .9 1.75 mg/kg/hr ANGIOMAX DRIP given in lab by Alissa Zhang RN in Right Wrist via Peripheral IV. Pum p/Drip Flow = 23.03 ml/hr using NaCl .9 with a concentration of 250 mg in 50 ml. Ordered by Vernon Godinez. IV Solutions 04/19/2017 7:59:14 AM 0 mL (IV) 500 NaCl .9 Patient arrived on IV Solutions given by tatianna campuzano in Right Wrist via Peripheral IV. Pump/Drip Flow = 20 ml/hr using NaCl .9. Ordered by Vernon Godinez. NITROGLYCERIN DRIP 04/19/2017 9:33:58 AM 10 mcg/min 50 mg 250 D5W 10 mcg/min NITROGLYCERIN DRIP given in lab by Alissa Zhang RN in Right Wrist via Peripheral IV. P ump/Drip Flow = 3 ml/hr using D5W with a concentration of 50 mg in 250 ml. Ordered by Vernon Godinez. NITROGLYCERIN DRIP 04/19/2017 9:42:08 AM 20 mcg/min 50 mg 250 D5W 20 mcg/min NITROGLYCERIN DRIP given in lab by Alissa Zhang RN in Right Wrist via Peripheral IV. P ump/Drip Flow = 6 ml/hr using D5W with a concentration of 50 mg in 250 ml. Ordered by Vernon Godinez. NITROGLYCERIN DRIP 04/19/2017 10:01:06 AM 30 mcg/min 50 mg 250 D5W 30 mcg/min NITROGLYCERIN DRIP given in lab by Alissa Zhang RN in Right Wrist via Peripheral IV. P ump/Drip Flow = 9 ml/hr using D5W with a concentration of 50 mg in 250 ml. Ordered by Vernon Godinez. Initial Case Assessment Cardiovascular HR Rhythm NIBP Chest Pain 77 sinus 204/137 0 Edema Present Skin color Skin None Normal Warm Dry Circulatory - Right Pulses Dorsalis Pedis Femoral 2 3 Scale (0,1,2,3,4,d) Circulatory - Left Pulses Dorsalis Pedis Femoral 2 3 Scale (0,1,2,3,4,d) Neurological State Oriented to time-place- Alert Moves all extremities person Respiration - General Respiration Rate SpO2 (%) (B/min) 15 99 Final Case Assessment Cardiovascular HR Rhythm NIBP Chest Pain 85 sinus 173/91 0 Edema Present Skin color Skin None Normal Warm Dry Circulatory - Right Pulses Dorsalis Pedis Femoral 2 3 Scale (0,1,2,3,4,d) Circulatory - Left Pulses Dorsalis Pedis Femoral 2 3 Scale (0,1,2,3,4,d) Neurological State Oriented to time-place- Alert Moves all extremities person Respiration - General Respiration Rate SpO2 (%) (B/min) 15 99 Chronological Log Time Study Chronological Log 7:58:58 Patient arrived via Bed. 7:59:01 Patient Name, D.O.B, / Armband Verified By R.N. 7:59:03 Consent signed by the physician and the patient and verified by the Stock Checker staff. 7:59:03 Pre-op and post- op instructions given; patient acknowledges understanding of instructions. 7:59:04 Verbal Stimulation=2 Physical Stimulation=2 Airway=2 Respiration=2 TOTAL=8. (0=absent, 1=li mited, 2=present) 7:59:05 Presedation assessment performed by Stock Checker RN. 7:59:05 Immediate Presedation assesment performed by physician. 7:59:06 Patient has been NPO for More than 6Hrs. 7:59:06 Skin Breakdown- none per patient 7:59:11 Patient Warmer Placed on the Table. 7:59:12 Hilario Prominences Protected 7:59:13 A # 20 IV was noted in the Wrist (right). Grade = 0 Patient arrived on IV Solutions given by cathlab, cathlab in Right Wrist via Peripheral IV. Pum p/Drip Flow = 20 ml/hr 7:59:14 using NaCl .9. Ordered by Vernon Godinez. 7:59:15 History and physical on the chart or being dictated. Vitals capture started with the following parameters, Patient=Adult, Interval=5 min, Initial Pr zvylyp=344 mmHg, 8:05:02 Deflation Rate=5 mmHg, Cuff placed on Left Arm 8:05:26 Reference ECG taken Assessment: Initial Case, HR=77 BPM, Rhythm=sinus, WPLN=651/137 mmhg, Chest Pain=0, Edema=None, Color=Normal, Skin = Warm, Dry Right Pulses: Al Ped=2, Femoral=3 8:05:28 Left Pulses: Al Ped=2, Femoral=3 Neurological: State=Alert, Ox3, HURTADO Respiration: Resp=15 B/min, SpO2=99 % 8:07:00 HR=80 bpm, RIKO=703/137 mmhg, VfM8=046.0 %, Resp=16 B/min, Pain=0, Virgil=10, Jimenez=2 8:10:51 HR=86 bpm, RJIZ=244/125 mmhg, SpO2=99.0 %, Resp=16 B/min 8:16:35 HR=93 bpm, JXUP=146/122 mmhg, SpO2=99.0 %, Resp=13 B/min 8:16:36 Bilateral groins prepped with 2% chlorhexidine, and with a 3 min. waiting time. 8:18:44 MD paged 8:19:01 MD responded 8:19:10 Pressure channel 1 zeroed. 8:20:47 HR=97 bpm, EXJX=837/125 mmhg, OiW6=170.0 %, Resp=16 B/min, Pain=0, Virgil=10, Jimenez=2 8:25:50 HR=84 bpm, IOGG=025/111 mmhg, SpO2=99.0 %, Resp=15 B/min, Pain=0, Virgil=10, Jimenez=2 8:29:02 MD arrived. 8:31:05 Contrast Scanned 8:31:06 Immediate Presedation assesment performed by physician. 8:31:34 HR=85 bpm, LNIK=851/129 mmhg, IsS8=119.0 %, Resp=15 B/min, Pain=0, Virgil=10, Jimenez=2 8:35:52 HR=86 bpm, ZWWM=381/113 mmhg, HiC5=444.0 %, Resp=16 B/min, Pain=0, Virgil=10, Jimenez=2 Time Out. Correct patient, correct procedure,correct physician, ,power injector loaded with cont rast with surgical team 8:39:39 present. Time Out Concurred by , individual staff in procedure 8:39:53 Case Start 8:39:55 Verbal Stimulation=2 Physical Stimulation=2 Airway=2 Respiration=2 TOTAL=8. (0=absent, 1=haque ited, 2=present) 8:40:07 1 mg VERSED given in lab by Lois Lewis, RN in Right Wrist via Peripheral IV. Ordered by Vernon Godinez. 8:40:18 20 mL 1% XYLOCAINE given in lab by Vernon Godinez in Right Groin via Subcutaneous. 8:41:28 HR=94 bpm, ZBFJ=554/127 mmhg, NdS0=057.0 %, Resp=16 B/min, Pain=0, Virgil=10, Jimenez=2 8:43:28 Access site was Right Femoral Artery. 8:43:32 A SHEATH, FR6.5 PRELUDE 11CM FR 6.5 was advanced into the Fem Art (right) using the Percutan eous technique. A JL 4.0 INFINITI CATHETER FR 6 was advanced over a wire. OMNIPAQUE, 350 MG, 100ML 100ML was use d for 8:45:10 injections. 8:45:52 HR=90 bpm, KRGN=153/105 mmhg, SpO2=97.0 %, Resp=15 B/min, Pain=0, Virgil=10, Jimenez=2 8:46:29 The LCA was injected and visualized at various angles. OMNIPAQUE, 350 MG, 100ML 100ML used. 8:48:12 Catheter was removed A JR 4.0 INFINITI CATHETER FR 6 was advanced over a wire. OMNIPAQUE, 350 MG, 100ML 100ML was use d for 8:48:13 injections. Recorded Pressure: Ao, HR=88, Condition=Condition 1 8:49:26 (Aorta) Ao 170/101/131 8:49:39 The RCA was injected and visualized at various angles. OMNIPAQUE, 350 MG, 100ML 100ML used. 8:50:33 The SVG-OM was injected and visualized at various angles. OMNIPAQUE, 350 MG, 100ML 100ML use d. 8:50:51 HR=93 bpm, QMBM=737/112 mmhg, SpO2=95.0 %, Resp=30 B/min 8:50:52 The SVG-DIAG was injected and visualized at various angles. OMNIPAQUE, 350 MG, 100ML 100ML u sed. 8:52:54 Catheter was removed A MEAGHAN INFINITI CATHETER FR 6 was advanced over a wire. OMNIPAQUE, 350 MG, 100ML 100ML was used f or 8:52:55 injections. 8:55:33 The ESPINOZA-LAD was injected and visualized at various angles. OMNIPAQUE, 350 MG, 100ML 100ML u sed. 8:56:31 Catheter was removed A MPA-2 INFINITI CATHETER FR 6 was advanced over a wire. OMNIPAQUE, 350 MG, 100ML 100ML was used for 8:56:32 injections. 8:56:33 HR=93 bpm, JLOM=207/110 mmhg, SpO2=99.0 %, Resp=11 B/min, Pain=0, Virgil=10, Jimenez=2 8:58:54 The SVG-RCA was injected and visualized at various angles. OMNIPAQUE, 350 MG, 100ML 100ML us ed. 9:00:54 HR=96 bpm, UFOL=503/100 mmhg, ZcS1=941.0 %, Resp=17 B/min, Pain=0, Virgil=10, Jimenez=2 9:02:12 Catheter was removed 9:03:58 A RCB GUIDE CATHETER FR 6 was advanced over a wire. OMNIPAQUE, 350 MG, 100ML 100ML was used for injections. 10 mL ANGIOMAX BOLUS given in lab by Alissa Zhang, RN in Right Wrist via Peripheral IV. Order ed by Herbert, 9:05:19 Vernon. 9:05:49 HR=83 bpm, UXDZ=029/118 mmhg, SpO2=98.0 %, Resp=15 B/min, Pain=0, Virgil=10, Jimenez=2 1.75 mg/kg/hr ANGIOMAX DRIP given in lab by Alissa Zhang, FORTUNATO in Right Wrist via Peripheral IV . Pump/Drip Flow = 9:06:10 23.03 ml/hr using NaCl .9 with a concentration of 250 mg in 50 ml. Ordered by Vernon Godinez. 9:07:41 Catheter was removed. 9:07:48 A RCB GUIDE CATHETER FR 6 was advanced over a wire. OMNIPAQUE, 350 MG, 100ML 100ML was used for injections. 9:10:50 HR=89 bpm, XNYR=200/129 mmhg, BsY5=898.0 %, Resp=16 B/min, Pain=0, Virgil=10, Jimenez=2 9:13:47 Wire removed 9:13:48 Catheter was removed A 3DRC INFINITI CATHETER FR 6 was advanced over a wire. OMNIPAQUE, 350 MG, 100ML 100ML was used for 9:14:37 injections. 9:14:42 A WIRE, EXCHANGE 260CM 3MMJ 260CM was inserted via Fem Art (right). After removing the current catheter a RCB GUIDE CATHETER FR 6 was advanced over a WIRE, EXCHANGE 260CM 3MMJ 9:15:54 260CM. 9:16:30 HR=91 bpm, QAOG=786/120 mmhg, SpO2=98.0 %, Resp=16 B/min, Pain=0, Virgil=10, Jimenez=2 9:20:07 Catheter was removed A SHEATH, FR6 PINNACLE DESTINATION 45CM FR 6 was exchanged in the Fem Art (right). This was nece ssary in 9:20:11 order for catheter support. 9:20:56 HR=88 bpm, JLIX=476/123 mmhg, SpO2=99.0 %, Resp=9 B/min, Pain=0, Virgil=10, Jimenez=2 A XB 4.5 GUIDE CATHETER FR 6 was advanced over a wire. OMNIPAQUE, 350 MG, 150ML 150ML was used f or 9:21:04 injections. 9:25:57 HR=86 bpm, BRUZ=845/109 mmhg, SpO2=98.0 %, Resp=16 B/min, Pain=0, Virgil=10, Jimenez=2 9:26:11 Catheter was removed A XB 4.0 GUIDE CATHETER FR 6 was advanced over a wire. OMNIPAQUE, 350 MG, 100ML 100ML was used f or 9:27:52 injections. 9:30:26 A WIRE, BALANCE MIDDLEWEIGHT 190CM 190CM was inserted via Fem Art (right). 9:31:32 Interventional wire has crossed the lesion 9:31:33 FT=093 bpm, ZCFT=496/116 mmhg, SpO2=98.0 %, Resp=16 B/min, Pain=0, Virgil=10, Jimenez=2 A BALLOON, 2.5 X 15MM NC EUPHORA 15MM was inserted over WIRE, BALANCE MIDDLEWEIGHT 190CM 190CM v ia 9:32:54 the LEFT MAIN ARTERY-(11. 10 mcg/min NITROGLYCERIN DRIP given in lab by Alissa Zhang, RN in Right Wrist via Peripheral IV. Pump/Drip Flow 9:33:58 = 3 ml/hr using D5W with a concentration of 50 mg in 250 ml. Ordered by Vernon Godinez. A BALLOON, 2.5 X 15MM NC EUPHORA 15MM over a WIRE, BALANCE MIDDLEWEIGHT 190CM 190CM in the LEFT MAIN 9:34:15 ARTERY-(11 was inflated using a 30 JOHNY INDEFLATOR at 20 johny for 30 sec. 9:35:42 Balloon Removed. 9:35:53 HR=96 bpm, WOIL=466/111 mmhg, SpO2=96.0 %, Resp=15 B/min, Pain=0, Virgil=10, Jimenez=2 An STENT, 3.0 15 INTEGRITY 3.0 15 Bare Metal Stent was inserted through a XB 4.0 GUIDE CATHETER FR 6 over a 9:37:25 WIRE, BALANCE MIDDLEWEIGHT 190CM 190CM. A STENT, 3.0 15 INTEGRITY 3.0 15 was deployed using a 30 JOHNY INDEFLATOR at 14 atmospheres for 45 seconds in 9:38:52 the LEFT MAIN ARTERY-(11. 9:39:47 Delivery device removed 9:40:54 HR=77 bpm, OEYH=558/107 mmhg, SpO2=95.0 %, Resp=14 B/min, Pain=0, Virgil=10, Jimenez=2 A BALLOON, 4.0 X 12MM NC EUPHORA 12MM was inserted over WIRE, BALANCE MIDDLEWEIGHT 190CM 190CM via 9:41:52 the LEFT MAIN ARTERY-(11. 20 mcg/min NITROGLYCERIN DRIP given in lab by Alissa Zhang, RN in Right Wrist via Peripheral IV. Pump/Drip Flow 9:42:08 = 6 ml/hr using D5W with a concentration of 50 mg in 250 ml. Ordered by Vernon Godinez. A BALLOON, 4.0 X 12MM NC EUPHORA 12MM over a WIRE, BALANCE MIDDLEWEIGHT 190CM 190CM in the LEFT MAIN 9:43:34 ARTERY-(11 was inflated using a 30 JOHNY INDEFLATOR at 20 johny for 25 sec. 9:44:47 Balloon Removed. 9:45:51 HR=92 bpm, YQVG=530/110 mmhg, SpO2=98.0 %, Resp=26 B/min, Pain=0, Virgil=10, Jimenez=2 9:46:21 Wire removed A MPA-1 GUIDE CATHETER FR 6 was advanced over a wire. OMNIPAQUE, 350 MG, 100ML 100ML was used f or 9:49:39 injections. 9:51:31 HR=87 bpm, RGRA=298/120 mmhg, SpO2=98.0 %, Resp=13 B/min, Pain=0, Virgil=10, Jimenez=2 9:54:27 A WIRE, BALANCE MIDDLEWEIGHT 190CM 190CM was inserted via Fem Art (right). 9:54:30 Interventional wire has crossed the lesion 9:55:53 HR=80 bpm, RXPL=544/129 mmhg, SpO2=99.0 %, Resp=24 B/min, Pain=0, Virgil=10, Jimenez=2 A BALLOON, 2.0 15MM EMERGE MR 2.0 15MM was inserted over WIRE, BALANCE MIDDLEWEIGHT 190CM 190CM via 9:55:56 the SVG-RCA. A BALLOON, 2.0 15MM EMERGE MR 2.0 15MM over a WIRE, BALANCE MIDDLEWEIGHT 190CM 190CM in the SVG -RCA 9:57:47 was inflated using a 30 JOHNY INDEFLATOR at 12 johny for 40 sec. 10:00:25 Balloon Removed. An STENT, 2.75 8 INTEGRITY 2.75 8 Bare Metal Stent was inserted through a MPA-1 GUIDE CATHETER FR 6 over a 10:00:35 WIRE, BALANCE MIDDLEWEIGHT 190CM 190CM. 10:00:56 HR=92 bpm, MPFP=094/103 mmhg, SpO2=97.0 %, Resp=17 B/min, Pain=0, Virgil=10, Jimenez=2 30 mcg/min NITROGLYCERIN DRIP given in lab by Alissa Zhang, RN in Right Wrist via Peripheral IV. Pump/Drip Flow 10:01:06 = 9 ml/hr using D5W with a concentration of 50 mg in 250 ml. Ordered by Vernon Godinez. A STENT, 2.75 8 INTEGRITY 2.75 8 was deployed using a 30 JOHNY INDEFLATOR at 12 atmospheres for 4 0 seconds in 10:01:10 the SVG-RCA. 10:03:12 Balloon Removed. A BALLOON, 3.5 X 8MM NC EUPHORA 8MM was inserted over WIRE, BALANCE MIDDLEWEIGHT 190CM 190CM vi a the 10:03:57 SVG-RCA. 10:05:59 HR=99 bpm, PDAQ=955/129 mmhg, SpO2=97.0 %, Resp=15 B/min, Pain=0, Virgil=10, Jimenez=2 A BALLOON, 3.5 X 8MM NC EUPHORA 8MM over a WIRE, BALANCE MIDDLEWEIGHT 190CM 190CM in the SVG-RC A 10:07:12 was inflated using a 30 JOHNY INDEFLATOR at 20 johny for 30 sec. 10:08:45 Balloon Removed. 10:08:48 Wire removed 10:08:53 Catheter was removed A SHEATH, FR6.5 PRELUDE 11CM FR 6.5 was exchanged in the Fem Art (right). This was necessary in order to achieve 10:09:05 vascular hemostasis. 10:11:01 HR=81 bpm, KYZR=643/91 mmhg, SpO2=98.0 %, Resp=16 B/min, Pain=0, Virgil=10, Jimenez=2 10:11:35 An injection in the Fem Art (right) was made through the SHEATH, FR6.5 PRELUDE 11CM FR 6.5. 10:12:19 ANGIOSEAL, FR6 VIP FR 6 placement in the Fem Art (right) 10:13:58 Case End 10:14:02 Sterile dressing applied to site Assessment: Final Case, HR=85 BPM, Rhythm=sinus, NQHR=346/91 mmhg, Chest Pain=0, Edema=None, Color=Normal, Skin = Warm, Dry Right Pulses: Al Ped=2, Femoral=3 10:14:02 Left Pulses: Al Ped=2, Femoral=3 Neurological: State=Alert, Ox3, HURTADO Respiration: Resp=15 B/min, SpO2=99 % 10:14:16 Catheter(s) removed without difficulty 10:14:17 No case complications noted. 10:14:18 Cine recording checked. 10:14:18 Cine recording checked. 10:14:21 Bedside Report will be given. 10:14:21 Implantable Device card placed in patient's chart. 10:14:22 Contrast Scanned 10:14:24 Verbal Stimulation=2 Physical Stimulation=2 Airway=2 Respiration=2 TOTAL=8. (0=absent, 1=l imited, 2=present) 10:14:29 A Left Heart Cath was performed. 10:16:32 HR=95 bpm, LWKA=373/105 mmhg, SpO2=99.0 %, Resp=13 B/min, Pain=0, Virgil=10, Jimenez=2 10:19:36 600 mg PLAVIX given in lab by Alissa Zhang, RN via Oral. Ordered by Vernon Godinez. 10:20:57 HR=75 bpm, KBTT=552/116 mmhg, SpO2=97.0 %, Resp=14 B/min, Pain=0, Virgil=10, Jimenez=2 10:21:27 Vitals capture stopped. 10:23:20 Patient moved to stretcher End Study - Contrast Media Used In Study Contrast Total Opened (mL) Total Used (mL) Total Wasted (mL) Omnipaque 210 210 0 End Study - Maximum Contrast Load Max Contrast Load (mL) 219.4 End Study - Radiation Exposure Fluoro Time (minutes) 27.2 End Study - Patient Disposition Complications Transferred To Interventional Outcome No Telemetry Bed successful
[2017-04-19] MEDS ORDERED: SODIUM CHLORIDE 0.9% FLUSH 10 ML FLUSH IV FLUSH PRN (10:30)
[2017-04-19] MEDS ORDERED: ASPIRIN 81 MG CHEW TAB PO SCH (10:30)
[2017-04-19] MEDS ORDERED: ACETAMINOPHEN 325 MG TAB PO PRN (10:30)
[2017-04-19] MEDS: NITROGLYCERIN-D5W 50 MG/250 ML 250 ML IV PRN (10:30)
[2017-04-19] MEDS ORDERED: oxyCODONE/ACETAMINOPHEN 5 MG/325 MG TAB PO PRN (10:30)
[2017-04-19] MEDS ORDERED: MISC INFORMATION XX ONE (10:30)
[2017-04-19] MEDS ORDERED: ONDANSETRON HCL 4 MG/2 ML VIAL IV PUSH PRN (10:30)
[2017-04-19] MEDS: ASPIRIN 81 MG CHEW TAB PO SCH (11:43)
[2017-04-19] MEDS: METOPROLOL TARTRATE 50 MG TAB PO SCH ×2 (11:43→22:27)
[2017-04-19] MEDS: DOCUSATE SODIUM 50 MG/SENNA 8.6 MG TAB PO SCH ×2 (11:44→22:27)
--- NOTE | 2017-04-19 13:50 | HHI.PR ---
Subjective Remarks Patient is a 71-year-old male who is normally followed at the [facility]. He was seen there today and was sent over to the hospital regarding chest pain. Patient has a extensive cardiac history with a history of bypass of 5 vessels.. Patient has history of psychiatric disorder also so history is not very reliable Patient has chest discomfort especially when he lies down at night does not get it when he moves around. It is a pressure-like feeling like an elephant on his chest. Denies any chest pain at this time. States that he's had this on and off for the past 2 weeks Patient has posterior medics stress disorder also Patient's blood pressures completely uncontrolled. Will be admitted. His troponins are elevated. Will be monitored by cardiology and trended. We'll get an echo. We'll continue to follow him throughout the admission 04-16 HAD STRESS TEST TODAY RELOAD COUMADIN CARDIAC DIET DW RN AND PT 04-17 TO HAVE CARDIAC CATH 04-19 NO NEW COMPLAINTS NOT CLEARED BY CARDIO FOR DC TROPONINS MORE ELEVATED 04-18 TO HAVE CARDIAC CATH TOMORROW NO NEW COMPLAINTS 04-19 HAD CARDIAC CATH TODAY STENTS PLACED BY CARDIO ?LAD?? AM LABS [facility]EF[facility] HOME NEXT 24 TO 48 HOURS Objective Vitals Vital Signs Date Time Temp Pulse Resp B/P (MAP) Pulse Ox O2 Delivery O2 Flow Rate FiO2 04/19/17 12:00 72 18 158/101 (120) 04/19/17 12:00 69 04/19/17 11:00 82 18 158/92 (114) 98 04/19/17 11:00 70 04/19/17 11:00 98 Room Air 04/19/17 09:48 Room Air 21 04/19/17 04:00 97.6 74 19 187/108 (134) 97 04/19/17 00:00 Room Air 04/19/17 00:00 98.0 76 20 180/99 (126) 100 04/18/17 20:38 21 04/18/17 20:00 97 04/18/17 20:00 98.1 84 20 206/104 (138) 100 04/18/17 20:00 Room Air 04/18/17 16:03 98.4 82 18 176/87 (116) 99 I/O 04/18/17 04/18/17 04/18/17 04/19/17 04/19/17 04/19/17 07:00 15:00 23:00 07:00 15:00 23:00 Intake Total 96 ml 616 ml 746 ml 1000 ml Output Total 800 ml 1000 ml Balance 96 ml -184 ml -254 ml 1000 ml Intake Oral 480 ml 650 ml IV Total 96 ml 136 ml 96 ml 1000 ml Output Urine Total 800 ml 1000 ml # Bowel Movements 0 1 Result Diagram: 04/19/17 0730 04/19/17 0730 Other Results Laboratory Tests Test 04/17/17 06:22 04/17/17 10:20 04/17/17 19:37 04/18/17 11:40 White Blood Count 8.0 TH/MM3 8.3 TH/MM3 6.1 TH/MM3 Red Blood Count 4.29 MIL/MM3 4.14 MIL/MM3 4.15 MIL/MM3 Hemoglobin 12.3 GM/DL 11.6 GM/DL 11.9 GM/DL Hematocrit 37.6 % 36.6 % 36.6 % Mean Corpuscular Volume 87.8 FL 88.4 FL 88.2 FL Mean Corpuscular Hemoglobin 28.7 PG 28.0 PG 28.6 PG Mean Corpuscular Hemoglobin Concent 32.7 % 31.7 % 32.4 % Red Cell Distribution Width 14.2 % 14.1 % 14.1 % Platelet Count 157 TH/MM3 155 TH/MM3 144 TH/MM3 Mean Platelet Volume 9.3 FL 9.1 FL 9.2 FL Neutrophils (%) (Auto) 69.6 % 60.8 % Lymphocytes (%) (Auto) 16.4 % 21.1 % Monocytes (%) (Auto) 11.9 % 14.6 % Eosinophils (%) (Auto) 1.5 % 2.8 % Basophils (%) (Auto) 0.6 % 0.7 % Neutrophils # (Auto) 5.6 TH/MM3 3.7 TH/MM3 Lymphocytes # (Auto) 1.3 TH/MM3 1.3 TH/MM3 Monocytes # (Auto) 0.9 TH/MM3 0.9 TH/MM3 Eosinophils # (Auto) 0.1 TH/MM3 0.2 TH/MM3 Basophils # (Auto) 0.0 TH/MM3 0.0 TH/MM3 CBC Comment DIFF FINAL DIFF FINAL Differential Comment Prothrombin Time 11.9 SEC 12.7 SEC 12.7 SEC Prothromb Time International Ratio 1.1 RATIO 1.1 RATIO 1.1 RATIO Blood Urea Nitrogen 33 MG/DL 29 MG/DL Creatinine 1.85 MG/DL 1.56 MG/DL Random Glucose 97 MG/DL 124 MG/DL Total Protein 7.1 GM/DL 6.6 GM/DL Albumin 3.3 GM/DL 3.0 GM/DL Calcium Level 8.6 MG/DL 8.8 MG/DL Phosphorus Level 2.9 MG/DL 2.2 MG/DL Magnesium Level 2.3 MG/DL 2.0 MG/DL 2.1 MG/DL Alkaline Phosphatase 96 U/L 93 U/L Aspartate Amino Transf (AST/SGOT) 31 U/L 28 U/L Alanine Aminotransferase (ALT/SGPT) 20 U/L 23 U/L Total Bilirubin 0.9 MG/DL 0.7 MG/DL Sodium Level 140 MEQ/L 139 MEQ/L Potassium Level 3.5 MEQ/L 3.4 MEQ/L Chloride Level 106 MEQ/L 104 MEQ/L Carbon Dioxide Level 26.3 MEQ/L 26.7 MEQ/L Anion Gap 8 MEQ/L 8 MEQ/L Estimat Glomerular Filtration Rate 36 ML/MIN 44 ML/MIN Hemoglobin A1c 6.3 % Total Creatine Kinase 219 U/L 208 U/L Troponin I 5.26 NG/ML 2.51 NG/ML 1.84 NG/ML Free Thyroxine 0.90 NG/DL Thyroid Stimulating Hormone 3rd Gen 0.731 uIU/ML Activated Partial Thromboplast Time 32.0 SEC 44.9 SEC 33.4 SEC Test 04/19/17 07:30 White Blood Count 8.3 TH/MM3 Red Blood Count 4.65 MIL/MM3 Hemoglobin 13.2 GM/DL Hematocrit 41.1 % Mean Corpuscular Volume 88.5 FL Mean Corpuscular Hemoglobin 28.4 PG Mean Corpuscular Hemoglobin Concent 32.1 % Red Cell Distribution Width 14.6 % Platelet Count 167 TH/MM3 Mean Platelet Volume 9.6 FL Neutrophils (%) (Auto) 59.8 % Lymphocytes (%) (Auto) 23.7 % Monocytes (%) (Auto) 12.0 % Eosinophils (%) (Auto) 3.7 % Basophils (%) (Auto) 0.8 % Neutrophils # (Auto) 5.0 TH/MM3 Lymphocytes # (Auto) 2.0 TH/MM3 Monocytes # (Auto) 1.0 TH/MM3 Eosinophils # (Auto) 0.3 TH/MM3 Basophils # (Auto) 0.1 TH/MM3 CBC Comment DIFF FINAL Differential Comment Prothrombin Time 12.5 SEC Prothromb Time International Ratio 1.1 RATIO Activated Partial Thromboplast Time 96.2 SEC Blood Urea Nitrogen 27 MG/DL Creatinine 1.35 MG/DL Random Glucose 95 MG/DL Total Protein 7.5 GM/DL Albumin 3.5 GM/DL Calcium Level 9.5 MG/DL Phosphorus Level 2.7 MG/DL Magnesium Level 2.2 MG/DL Alkaline Phosphatase 105 U/L Aspartate Amino Transf (AST/SGOT) 28 U/L Alanine Aminotransferase (ALT/SGPT) 26 U/L Total Bilirubin 0.9 MG/DL Sodium Level 135 MEQ/L Potassium Level 3.7 MEQ/L Chloride Level 101 MEQ/L Carbon Dioxide Level 26.9 MEQ/L Anion Gap 7 MEQ/L Estimat Glomerular Filtration Rate 52 ML/MIN Imaging Last Impressions Myocardial Perfusion Scan Nuc Med 04/16/17 0000 Signed Impressions: Service Date/Time: Sunday, April 16, 2017 11:08 - CONCLUSION: The calculated ejection fraction is slightly low with an area of mild ischemia low anterolateral wall. RISK CATEGORY: Low (<1%% Annual Mortality Rate) Roselyn Pemberton MD Chest X-Ray 04/15/17 1013 Signed Impressions: Service Date/Time: April 10:26 - CONCLUSION: 1. Cardiomegaly 2. No acute focal pulmonary infiltrate or pulmonary vascular congestion. Gabriel Nassar MD Objective Remarks GENERAL: SKIN: Warm and dry. HEAD: Atraumatic. Normocephalic. EYES: Pupils equal and round. No scleral icterus. No injection or drainage. ENT: No nasal bleeding or discharge. Mucous membranes pink and moist. NECK: Trachea midline. No JVD. CARDIOVASCULAR: Regular rate and rhythm. RESPIRATORY: No accessory muscle use. Clear to auscultation. Breath sounds equal bilaterally. GASTROINTESTINAL: Abdomen soft, non-tender, nondistended. Hepatic and splenic margins not palpable. MUSCULOSKELETAL: Extremities without clubbing, cyanosis, or edema. No obvious deformities. NEUROLOGICAL: Awake and alert. No obvious cranial nerve deficits. Motor grossly within normal limits. Five out of 5 muscle strength in the arms and legs. Normal speech. PSYCHIATRIC: Appropriate mood and affect; insight and judgment normal. Procedures CARDIAC CATH TODAY SP STENTS 9-11 HAD NUCLEAR STRESS TEST 9-8 Medications and IVs Current Medications Sodium Chloride (NS Flush) 2 ml UNSCH PRN IVF FLUSH AFTER USING IV ACCESS Last administered on 04/15/17 10:50; Start 04/15/17 at 10:15; Stop 04/15/17 at 13:40; Status DC Labetalol HCl (Trandate Inj) 10 mg ONCE ONCE IV PUSH Last administered on 10:47; Start 04/15/17 at 10:45; Stop 04/15/17 at 10:46; Status DC Labetalol HCl (Trandate Inj) 10 mg ONCE ONCE IV PUSH Last administered on 12:07; Start 04/15/17 at 11:30; Stop 04/15/17 at 11:31; Status DC Aspirin (Aspirin Chew) 162 mg ONCE ONCE PO Last administered on 04/15/17 12:07 ; Start 04/15/17 at 11:30; Stop 04/15/17 at 11:31; Status DC Nitroglycerin (Nitroglycerin 2% Oint) 1 inch ONCE ONCE TOP Last administered on 04/15/17 12:08; Start 04/15/17 at 11:30; Stop 04/15/17 at 11:31; Status DC Enoxaparin Sodium (Lovenox Inj) 60 mg ONCE ONCE SQ Last administered on 12:08; Start 04/15/17 at 11:30; Stop 04/15/17 at 11:31; Status DC Amlodipine Besylate (Norvasc) 10 mg DAILY PO Last administered on 04/19/17 11: 43; Start 04/15/17 at 14:00 Atorvastatin Calcium (Lipitor) 20 mg HS PO Last administered on 04/18/17 20:17 ; Start 04/15/17 at 21:00 Isosorbide Dinitrate (Isordil) 10 mg BID@0700,1700 PO Last administered on 04/19 06:16; Start 04/15/17 at 17:00 Metoprolol Tartrate (Lopressor) 25 mg Q12HR PO Last administered on 04/15/17 14 :21; Start 04/15/17 at 14:00; Stop 04/15/17 at 15:25; Status DC Warfarin Sodium (Coumadin) 5 mg DAILY@1600 PO ; Start 04/15/17 at 16:00; Stop 04/15/17 at 16:00; Status DC Sodium Chloride (NS Flush) 2 ml UNSCH PRN IV FLUSH FLUSH AFTER USING IV ACCESS ; Start 04/15/17 at 13:00; Status UNV Sodium Chloride (NS Flush) 2 ml BID IV FLUSH ; Start 04/15/17 at 21:00; Status UNV Aspirin (Aspirin Chew) 81 mg DAILY PO Last administered on 04/19/17 11:43; Start 04/16/17 at 09:00 Sodium Chloride (NS Flush) 2 ml UNSCH PRN IV FLUSH FLUSH AFTER USING IV ACCESS ; Start 04/15/17 at 13:00 Sodium Chloride (NS Flush) 2 ml BID IV FLUSH Last administered on 04/19/17 07: 43; Start 04/15/17 at 21:00 Acetaminophen (Tylenol) 650 mg Q4H PRN PO TEMP > 100.4; Start 04/15/17 at 13:00 Ondansetron HCl (Zofran Inj) 4 mg Q6H PRN IVP NAUSEA OR VOMITING Last administered on 04/15/17 15:54; Start 04/15/17 at 13:00; Stop 04/19/17 at 11:28; Status DC Prochlorperazine (Compazine Supp) 25 mg Q12H PRN RECTAL NAUSEA OR VOMITING; Start 04/15/17 at 13:00 Zolpidem Tartrate (Ambien) 5 mg HS PRN PO INSOMNIA; Start 04/15/17 at 13:00 Acetaminophen (Tylenol) 650 mg Q6H PRN PO PAIN SCALE 1 TO 2; Start 04/15/17 at 13:00; Stop 04/19/17 at 11:23; Status DC Acetaminophen/ Hydrocodone Bitart ([place] 10-325 Mg) 1 tab Q4H PRN PO PAIN SCALE 6 TO 10; Start 04/15/17 at 13:00; Stop 04/19/17 at 11:25; Status DC Oxycodone/ Acetaminophen (Percocet 5-325 Mg) 1 tab Q6H PRN PO PAIN SCALE 3 TO 5 Last administered on 04/16/17 02:21; Start 04/15/17 at 13:00; Stop 04/19/17 at 11:25; Status DC Morphine Sulfate (Morphine Inj) 2 mg Q3H PRN IV Pain 3-5; if unable to take PO ; Start 04/15/17 at 13:00 Morphine Sulfate (Morphine Inj) 4 mg Q3H PRN IV Pain 6-10;if unable to take PO ; Start 04/15/17 at 13:00 Naloxone HCl (Narcan Inj) 0.4 mg UNSCH PRN IV SEE LABEL COMMENTS; Start at 13:00 Senna/Docusate Sodium (Kandi-Colace) 1 tab BID PO Last administered on 20:17; Start 04/15/17 at 21:00 Magnesium Hydroxide (Milk Of Magnesia Liq) 30 ml Q12H PRN PO MILD - MODERATE CONSTIPATION; Start 04/15/17 at 13:00 Sennosides (Senokot) 17.2 mg Q12H PRN PO MODERATE - SEVERE CONSTIPATION; Start 04/15/17 at 13:00 Bisacodyl (Dulcolax Supp) 10 mg DAILY PRN RECTAL SEVERE CONSITIPATION; Start at 13:00 Lactulose (Lactulose Liq) 30 ml DAILY PRN PO SEVERE CONSITIPATION; Start at 13:00 Nitroglycerin (Nitrostat Sl) 0.4 mg Q5M PRN SL CHEST PAIN; Start 04/15/17 at 13: 15 Labetalol HCl (Trandate Inj) 20 mg ONCE ONCE IV PUSH Last administered on 13:27; Start 04/15/17 at 13:30; Stop 04/15/17 at 13:31; Status DC Miscellaneous Information ALL NURSING DEPARTME... UNSCH PRN OTHER SEE LABEL COMMENTS; Start 04/15/17 at 16:00; Stop 04/16/17 at 15:59; Status DC Patient Medication Teaching (Coumadin Booklet) 1 ONCE ONCE OTHER Last administered on 04/15/17 17:37; Start 04/15/17 at 16:00; Stop 04/15/17 at 16:01; Status DC Enoxaparin Sodium (Lovenox Inj) 60 mg Q12H SQ ; Start 04/15/17 at 23:00; Stop 04/15/17 at 23:00; Status DC Metoprolol Tartrate (Lopressor) 50 mg Q12HR PO Last administered on 04/19/17 11:43; Start 04/15/17 at 21:00 Clonidine (Catapres) 0.1 mg Q4H PRN PO SBP>160, DBP>90 Last administered on 04/17 06:46; Start 04/15/17 at 15:30 Hydralazine HCl (Apresoline Inj) 20 mg Q4H PRN IV PUSH SBP>160, DBP>90 Last administered on 04/15/17 15:53; Start 04/15/17 at 15:30 Regadenoson (Lexiscan Inj) 0.4 mg STK-MED ONCE .ROUTE Last administered on 11:22; Start 04/16/17 at 11:22; Stop 04/16/17 at 11:23; Status DC Warfarin Sodium (Coumadin) 5 mg DAILY@1600 PO Last administered on 04/16/17 17: 22; Start 04/16/17 at 16:00; Status Future Hold Heparin Sodium/ Dextrose 250 ml @ 8 mls/hr TITRATE IV Last administered on 04/18 16:40; Start 04/17/17 at 11:00; Stop 04/19/17 at 11:22; Status DC Heparin Sodium (Porcine) (Heparin Inj) 5,000 units UNSCH PRN IV aPTT less than 25; Start 04/17/17 at 11:00; Stop 04/19/17 at 11:22; Status DC Heparin Sodium (Porcine) (Heparin Inj) 2,500 units UNSCH PRN IV aPTT 25 to 39; Start 04/17/17 at 11:00; Stop 04/19/17 at 11:22; Status DC Potassium Phosphate 30 mmol/ Sodium Chloride 260 ml @ 43.333 mls/ hr ONCE ONCE IV Last administered on 04/18/17 15:46; Start 04/18/17 at 14:00; Stop 05/25 at 19:59; Status DC Potassium Chloride (KCl) 40 meq ONCE ONCE PO Last administered on 04/18/17 15 :47; Start 04/18/17 at 14:00; Stop 04/18/17 at 14:30; Status DC Sodium Chloride 1,000 ml @ 100 mls/hr Q10H IV Last administered on 04/18/17 15:47; Start 04/18/17 at 15:03; Stop 04/19/17 at 11:22; Status DC Diphenhydramine HCl (Benadryl) 50 mg PSYCH NURSE PO ; Start 04/18/17 at 15:15; Stop 04/19/17 at 11:24; Status DC Diazepam (Valium) 5 mg PSYCH NURSE PRN PO ON-CALL; Start 04/18/17 at 15:15; Stop at 11:28; Status DC Heparin Sodium/ Sodium Chloride 1,000 ml @ As Directed STK-MED ONCE .ROUTE Last administered on 04/19/17 07:39; Start 04/19/17 at 07:39; Stop 04/19/17 at 07:40; Status DC Midazolam HCl (Versed Inj) 2 mg STK-MED ONCE .ROUTE Last administered on 08:40; Start 04/19/17 at 07:41; Stop 04/19/17 at 07:42; Status DC Fentanyl Citrate (fentaNYL INJ) 100 mcg STK-MED ONCE .ROUTE ; Start 04/19/17 at 07:41; Stop 04/19/17 at 07:42; Status DC Heparin Sodium (Porcine) (Heparin Inj) 10,000 units STK-MED ONCE .ROUTE ; Start 04/19/17 at 07:42; Stop 04/19/17 at 07:43; Status DC Sodium Chloride 1,000 ml @ 100 mls/hr Q10H IV ; Start 04/19/17 at 08:35; Stop 04/24/17 at 08:34 Aspirin (Aspirin) 325 mg PSYCH NURSE PO ; Start 04/19/17 at 08:45; Stop 04/23/17 at 08:44 Diphenhydramine HCl (Benadryl) 50 mg PSYCH NURSE PO ; Start 04/19/17 at 08:45; Stop 04/23/17 at 08:44 Diazepam (Valium) 5 mg PSYCH NURSE PO ; Start 04/19/17 at 08:45; Stop 04/23/17 at 08:44 Bivalirudin (Angiomax Inj) 250 mg STK-MED ONCE .ROUTE Last administered on 04/19 09:05; Start 04/19/17 at 09:02; Stop 04/19/17 at 09:03; Status DC Nitroglycerin/ Dextrose 250 ml @ As Directed STK-MED ONCE .ROUTE ; Start at 09:32; Stop 04/19/17 at 09:33; Status DC Clopidogrel Bisulfate (Plavix) 600 mg STK-MED ONCE .ROUTE Last administered on 04/19/17 10:17; Start 04/19/17 at 10:02; Stop 04/19/17 at 10:03; Status DC Bivalirudin (Angiomax Inj) 250 mg STK-MED ONCE .ROUTE Last administered on 04/19t 10:05; Start 04/19/17 at 10:05; Stop 04/19/17 at 10:06; Status DC Sodium Chloride 1,000 ml @ 150 mls/hr Q6H40M IV ; Start 04/19/17 at 10:26; Stop 04/19/17 at 11:22; Status DC Sodium Chloride (NS Flush) 2 ml UNSCH PRN IV FLUSH FLUSH AFTER USING IV ACCESS ; Start 04/19/17 at 10:30; Stop 04/19/17 at 11:28; Status DC Sodium Chloride (NS Flush) 2 ml BID IV FLUSH ; Start 04/19/17 at 21:00; Stop 06/25 at 21:00; Status DC Acetaminophen (Tylenol) 325 mg Q4H PRN PO PAIN SCALE 1 TO 2; Start 04/19/17 at 10:30 Oxycodone/ Acetaminophen (Percocet 5-325 Mg) 1 tab Q4H PRN PO PAIN SCALE 3 TO 10; Start 04/19/17 at 10:30 Aspirin (Aspirin Chew) 81 mg DAILY PO ; Start 04/19/17 at 10:30; Stop 04/19/17 at 11:24; Status DC Clopidogrel Bisulfate (Plavix) 75 mg DAILY PO ; Start 04/20/17 at 09:00 Nitroglycerin/ Dextrose 250 ml @ 1.5 mls/hr TITRATE PRN IV Keep SBP > 90 mmHg ; Start 04/19/17 at 10:30 Bivalirudin 250 mg/Sodium Chloride 50 ml @ 0 mls/hr Q0M IV ; Start 04/19/17 at 10:26; Stop 04/19/17 at 12:25; Status DC Miscellaneous Information 1 ONCE ONCE XX ; Start 04/19/17 at 10:30; Stop at 11:21; Status DC Ondansetron HCl (Zofran Inj) 4 mg Q4H PRN IV PUSH NAUSEA; Start 04/19/17 at 10: 30 A/P Problem List: (1) Noncompliance ICD Code: Z91.19 - Patient's noncompliance with other medical treatment and regimen (2) Adjustment disorder with depressed mood ICD Code: F43.21 - Adjustment disorder with depressed mood Status: Acute (3) Schizo-affective schizophrenia, chronic condition ICD Code: F25.8 - Other schizoaffective disorders Status: Acute (4) Chronic kidney disease, stage 3 ICD Code: N18.3 - Chronic kidney disease, stage 3 (moderate) Status: Acute (5) Hypertension ICD Code: I10 - Essential (primary) hypertension Status: Chronic (6) New onset atrial fibrillation ICD Code: I48.91 - Unspecified atrial fibrillation Status: Acute (7) Acute kidney injury ICD Code: N17.9 - Acute kidney failure, unspecified Status: Acute (8) Elevated troponin I level ICD Code: R79.89 - Other specified abnormal findings of blood chemistry Status: Acute (9) Chest pain ICD Code: R07.9 - Chest pain, unspecified Status: Acute Assessment and Plan Chest pain with what sounds like chronic ischemic heart disease Elevated troponins suspect non-ST elevation MIs class 2 SUSPECT DUE TO RENAL FAILURE Chronic renal failure stage III Malignant medical noncompliance Psychiatric disorders Hypertension uncontrolled adjust blood pressure medications continue on statin Hyperlipidemia continue on statin Posttraumatic stress disorder Continue to monitor troponins. We'll get an echocardiogram. EF 30-35% A.m. labs PT and OT to eval and treat Case management for discharge planning I discussed with under seal operator ER and the physician and the patient We will adjust blood pressure medications NEEDS CATH ON 04-19 HAD STENTS PLACED NOT CLEARED FOR DC HYPOKALEMIA WILL REPLACE AM LABS Jay Mirza DO Apr 19, 2017 13:50
--- NOTE | 2017-04-19 14:30 | MA ---
cc: MARISOL MCKEON MD DATE: 04/19/2017 PROCEDURE PERFORMED Coronary angiography, bypass graft angiography, balloon angioplasty and stenting of the distal left main going into the ostium of the left circumflex artery, balloon angioplasty of the anastomosis of the saphenous vein graft to the posterior ascending artery branch, right femoral angiography with Angio-Seal placement. DESCRIPTION OF PROCEDURE The patient was brought to the cardiac cardiac cath lab manager in a fasting state. He received one mg of IV Versed for sedation. He has got some underlying mental disease and I did not make him any sleepier than that so I could get him to cooperate. Using 1% lidocaine for local anesthesia, a 6.5-Armenian sheath was easily inserted. Next, coronary angiography was completed using a left 4 Casey for the left coronary artery and a JR-4 for the right coronary artery. Angiography was obtained of the vein graft to the diagonal branch with the right 4 Casey. Angiography of the internal mammary bypass was performed using an internal mammary diagnostic catheter. Angiography of the vein graft to the right coronary artery was performed using a multipurpose catheter. I did not find any additional grafts and due to his elevated creatinine, chose not to take a root shot and instead proceeded to this intervention. There was a sharp bend in the iliac artery which caused some of the guides to kink, so I started out by changing the sheath to a long sheath. I then started with the left main and used an XB4 guiding catheter to engage the left main(XB4/5 was too large). I wired the left main with a BMW wire, predilated it with a 2.5 mm noncompliant balloon. I then stented it with a 3.0 x 15 mm bare metal integrity stent at 14 atmospheres. The proximal end of the stent was flared with a 4.0 noncompliant balloon at 20 atmospheres with an excellent angiographic result achieved. Next, I to a multipurpose guiding catheter and wired the posterior descending artery branch. I predilated it with a 2 mm balloon and then stented it with a 2.75 x 8 mm integrity stent of 12 atmospheres and then flared the proximal end of the stent with a 3.5 x 8 mm NC balloon; an outstanding angiographic result was achieved. The sheath was exchanged over wire to a short sheath followed by angiography and then uncomplicated Angio-Seal placement. There were no complications. FINDINGS I. HEMODYNAMICS: The aortic pressure is elevated at 170/101 with a mean of 131. IV nitroglycerin was given during the Case to help bring this down. II. CORONARY ANGIOGRAPHY The left main coronary artery has a 90% distal stenosis. The left anterior descending artery is totally occluded at its ostium. There is a small ramus intermediate branch and then the circumflex artery gives off multiple small branches and none of them that appeared suitable for grafting and there is no competitive flow from any grafts. The marginal branches given off are very small. The right coronary artery is dominant and totally occluded proximally. III. BYPASS GRAFTS Left internal mammary bypass graft is patent to the mid-LAD. There is diffuse irregularities in the mid and distal LAD. Saphenous vein graft to the major diagonal branch is widely patent. This perhaps provides retrograde and had flow to the first and second septals. The vein graft to the right coronary artery is very circuitous and demonstrates a 90% anastomotic stenosis with the posterior descending artery branch. Retrograde flow was also shown to show compromise to the posterolateral branch with serial stenoses at least 70%. IV. RESULTS OF INTERVENTION Following stenting of the left main, the distal left main has gone from 90% to 0% without evidence of thrombus or dissection. Following stenting of the posterior descending artery branch, the 90% stenosis has been reduced to 0% without evidence of thrombus or dissection. CONCLUSIONS 1. Left main and three-vessel coronary artery disease. 2. Three patent bypass grafts found. 3. Critical compromise of the distal left main now successfully stented restoring flow to the circumflex artery. 4. Critical stenosis of the vein graft to the posterior descending artery branch status post stenting. 5. Persistent disease of the right posterolateral branch which cannot be of reached percutaneously. PLAN The patient is right now on aspirin and Plavix. Will probably discontinue aspirin and send him home on a combination of Plavix and Eliquis. MD ROSIE Estrada/JACINTA /10:21 AM /1:56 PM
[2017-04-19] MEDS ORDERED: SODIUM CHLORIDE 0.9% FLUSH 10 ML FLUSH IV FLUSH SCH (21:00)
[2017-04-19] MEDS: ATORVASTATIN 20 MG TAB PO SCH (22:26)
[2017-04-20] VITALS (28 sets, daily range): BP systolic 117–145; BP diastolic 56–88; PULSE 57–98; RESP 16–20; TEMP 97.4–98.5; O2SAT 94–100
[2017-04-20] MEDS: cloNIDine HCL 0.1 MG TAB PO PRN (04:29)
[2017-04-20] MEDS: SODIUM CHLOR 0.9% 1000 ML INJ 1,000 ML IV SCH ×2 (04:35→14:35)
[2017-04-20] MEDS: ISOSORBIDE DINITRATE 5 MG TAB PO SCH ×2 (06:25→17:38)
[2017-04-20] MEDS: SODIUM CHLORIDE 0.9% FLUSH 10 ML FLUSH IV FLUSH SCH ×2 (09:00→20:59)
--- NOTE | 2017-04-20 09:29 | HHI.PR ---
Subjective Remarks Patient is a 71-year-old male who is normally followed at the [facility]. He was seen there today and was sent over to the hospital regarding chest pain. Patient has a extensive cardiac history with a history of bypass of 5 vessels.. Patient has history of psychiatric disorder also so history is not very reliable Patient has chest discomfort especially when he lies down at night does not get it when he moves around. It is a pressure-like feeling like an elephant on his chest. Denies any chest pain at this time. States that he's had this on and off for the past 2 weeks Patient has posterior medics stress disorder also Patient's blood pressures completely uncontrolled. Will be admitted. His troponins are elevated. Will be monitored by cardiology and trended. We'll get an echo. We'll continue to follow him throughout the admission 04-16 HAD STRESS TEST TODAY RELOAD COUMADIN CARDIAC DIET DW RN AND PT 04-17 TO HAVE CARDIAC CATH 04-19 NO NEW COMPLAINTS NOT CLEARED BY CARDIO FOR DC TROPONINS MORE ELEVATED 04-18 TO HAVE CARDIAC CATH TOMORROW NO NEW COMPLAINTS 04-19 HAD CARDIAC CATH TODAY STENTS PLACED BY CARDIO ?LAD?? AM LABS HOPEFULLY HOME NEXT 24 TO 48 HOURS Following stenting of the left main, the distal left main has gone from 90% to 0% without evidence of thrombus or dissection. Following stenting of the posterior descending artery branch, the 90% stenosis has been reduced to 0% without evidence of thrombus or dissection. CONCLUSIONS 1. Left main and three-vessel coronary artery disease. 2. Three patent bypass grafts found. 3. Critical compromise of the distal left main now successfully stented restoring flow to the circumflex artery. 4. Critical stenosis of the vein graft to the posterior descending artery branch status post stenting. 5. Persistent disease of the right posterolateral branch which cannot be of reached percutaneously. PLAN The patient is right now on aspirin and Plavix. Will probably discontinue aspirin and send him home on a combination of Plavix and Eliquis. 04-20 jean marie HASTINGS NEEDS PLAVIX, PEPCID, AND NOVEL ANTICOAGULATION JEAN MARIE RN AND PT NEEDS BETTER BLOOD PRESSURE CONTROL AM LABS STOP NITRO DRIP Objective Vitals Vital Signs Date Time Temp Pulse Resp B/P (MAP) Pulse Ox O2 Delivery O2 Flow Rate FiO2 04/20/17 07:55 97.5 82 16 141/76 (97) 98 04/20/17 06:00 62 04/20/17 05:00 62 04/20/17 04:00 74 04/20/17 03:00 77 04/20/17 03:00 98.5 80 20 119/76 (90) 97 04/20/17 02:00 59 04/20/17 01:00 62 04/20/17 00:00 64 04/19/17 23:00 60 04/19/17 23:00 98.4 80 20 119/76 (90) 97 04/19/17 22:00 62 04/19/17 21:00 66 04/19/17 20:00 70 04/19/17 19:00 72 04/19/17 18:42 140/87 (104) 04/19/17 18:00 77 04/19/17 17:38 99 04/19/17 17:03 80 04/19/17 16:37 18 04/19/17 16:01 73 19 155/94 (114) 98 04/19/17 16:00 92 04/19/17 15:00 66 04/19/17 14:00 74 04/19/17 13:00 86 04/19/17 12:00 72 18 158/101 (120) 04/19/17 12:00 69 04/19/17 11:00 82 18 158/92 (114) 98 04/19/17 11:00 70 04/19/17 11:00 98 Room Air 04/19/17 10:30 92 158/92 04/19/17 09:48 Room Air 21 I/O 04/19/17 04/19/17 04/19/17 04/20/17 04/20/17 04/20/17 07:00 15:00 23:00 07:00 15:00 23:00 Intake Total 746 ml 1000 ml 1030 ml 483 ml Output Total 1000 ml 650 ml 900 ml Balance -254 ml 1000 ml 380 ml -417 ml Intake Oral 650 ml 960 ml 440 ml IV Total 96 ml 1000 ml 70 ml 43 ml Output Urine Total 1000 ml 650 ml 900 ml # Bowel Movements 1 1 1 Result Diagram: 04/19/17 0730 04/19/1730 Other Results Laboratory Tests Test 04/17/17 10:20 04/17/17 19:37 04/18/17 11:40 04/19/17 07:30 White Blood Count 8.3 TH/MM3 6.1 TH/MM3 8.3 TH/MM3 Red Blood Count 4.14 MIL/MM3 4.15 MIL/MM3 4.65 MIL/MM3 Hemoglobin 11.6 GM/DL 11.9 GM/DL 13.2 GM/DL Hematocrit 36.6 % 36.6 % 41.1 % Mean Corpuscular Volume 88.4 FL 88.2 FL 88.5 FL Mean Corpuscular Hemoglobin 28.0 PG 28.6 PG 28.4 PG Mean Corpuscular Hemoglobin Concent 31.7 % 32.4 % 32.1 % Red Cell Distribution Width 14.1 % 14.1 % 14.6 % Platelet Count 155 TH/MM3 144 TH/MM3 167 TH/MM3 Mean Platelet Volume 9.1 FL 9.2 FL 9.6 FL Prothrombin Time 12.7 SEC 12.7 SEC 12.5 SEC Prothromb Time International Ratio 1.1 RATIO 1.1 RATIO 1.1 RATIO Activated Partial Thromboplast Time 32.0 SEC 44.9 SEC 33.4 SEC 96.2 SEC Magnesium Level 2.0 MG/DL 2.1 MG/DL 2.2 MG/DL Total Creatine Kinase 208 U/L Troponin I 2.51 NG/ML 1.84 NG/ML Neutrophils (%) (Auto) 60.8 % 59.8 % Lymphocytes (%) (Auto) 21.1 % 23.7 % Monocytes (%) (Auto) 14.6 % 12.0 % Eosinophils (%) (Auto) 2.8 % 3.7 % Basophils (%) (Auto) 0.7 % 0.8 % Neutrophils # (Auto) 3.7 TH/MM3 5.0 TH/MM3 Lymphocytes # (Auto) 1.3 TH/MM3 2.0 TH/MM3 Monocytes # (Auto) 0.9 TH/MM3 1.0 TH/MM3 Eosinophils # (Auto) 0.2 TH/MM3 0.3 TH/MM3 Basophils # (Auto) 0.0 TH/MM3 0.1 TH/MM3 CBC Comment DIFF FINAL DIFF FINAL Differential Comment Blood Urea Nitrogen 29 MG/DL 27 MG/DL Creatinine 1.56 MG/DL 1.35 MG/DL Random Glucose 124 MG/DL 95 MG/DL Total Protein 6.6 GM/DL 7.5 GM/DL Albumin 3.0 GM/DL 3.5 GM/DL Calcium Level 8.8 MG/DL 9.5 MG/DL Phosphorus Level 2.2 MG/DL 2.7 MG/DL Alkaline Phosphatase 93 U/L 105 U/L Aspartate Amino Transf (AST/SGOT) 28 U/L 28 U/L Alanine Aminotransferase (ALT/SGPT) 23 U/L 26 U/L Total Bilirubin 0.7 MG/DL 0.9 MG/DL Sodium Level 139 MEQ/L 135 MEQ/L Potassium Level 3.4 MEQ/L 3.7 MEQ/L Chloride Level 104 MEQ/L 101 MEQ/L Carbon Dioxide Level 26.7 MEQ/L 26.9 MEQ/L Anion Gap 8 MEQ/L 7 MEQ/L Estimat Glomerular Filtration Rate 44 ML/MIN 52 ML/MIN Imaging Last Impressions Myocardial Perfusion Scan Nuc Med 04/16/17 0000 Signed Impressions: Service Date/Time: Sunday, April 16, 2017 11:08 - CONCLUSION: The calculated ejection fraction is slightly low with an area of mild ischemia low anterolateral wall. RISK CATEGORY: Low (<1%% Annual Mortality Rate) Roselyn Pemberton MD Chest X-Ray 04/15/17 1013 Signed Impressions: Service Date/Time: April 10:26 - CONCLUSION: 1. Cardiomegaly 2. No acute focal pulmonary infiltrate or pulmonary vascular congestion. Gabriel Nassar MD Objective Remarks GENERAL: SKIN: Warm and dry. HEAD: Atraumatic. Normocephalic. EYES: Pupils equal and round. No scleral icterus. No injection or drainage. ENT: No nasal bleeding or discharge. Mucous membranes pink and moist. NECK: Trachea midline. No JVD. CARDIOVASCULAR: Regular rate and rhythm. RESPIRATORY: No accessory muscle use. Clear to auscultation. Breath sounds equal bilaterally. GASTROINTESTINAL: Abdomen soft, non-tender, nondistended. Hepatic and splenic margins not palpable. MUSCULOSKELETAL: Extremities without clubbing, cyanosis, or edema. No obvious deformities. NEUROLOGICAL: Awake and alert. No obvious cranial nerve deficits. Motor grossly within normal limits. Five out of 5 muscle strength in the arms and legs. Normal speech. PSYCHIATRIC: Appropriate mood and affect; insight and judgment normal. Procedures CARDIAC CATH TODAY SP STENTS 9-11 HAD NUCLEAR STRESS TEST 9-8 Following stenting of the left main, the distal left main has gone from 90% to 0% without evidence of thrombus or dissection. Following stenting of the posterior descending artery branch, the 90% stenosis has been reduced to 0% without evidence of thrombus or dissection. cath 04-19 CONCLUSIONS 1. Left main and three-vessel coronary artery disease. 2. Three patent bypass grafts found. 3. Critical compromise of the distal left main now successfully stented restoring flow to the circumflex artery. 4. Critical stenosis of the vein graft to the posterior descending artery branch status post stenting. 5. Persistent disease of the right posterolateral branch which cannot be of reached percutaneously. PLAN The patient is right now on aspirin and Plavix. Will probably discontinue aspirin and send him home on a combination of Plavix and Eliquis. Medications and IVs Current Medications Sodium Chloride (NS Flush) 2 ml UNSCH PRN IVF FLUSH AFTER USING IV ACCESS Last administered on 04/15/17 10:50; Start 04/15/17 at 10:15; Stop 04/15/17 at 13:40; Status DC Labetalol HCl (Trandate Inj) 10 mg ONCE ONCE IV PUSH Last administered on 10:47; Start 04/15/17 at 10:45; Stop 04/15/17 at 10:46; Status DC Labetalol HCl (Trandate Inj) 10 mg ONCE ONCE IV PUSH Last administered on 12:07; Start 04/15/17 at 11:30; Stop 04/15/17 at 11:31; Status DC Aspirin (Aspirin Chew) 162 mg ONCE ONCE PO Last administered on 04/15/17 12:07 ; Start 04/15/17 at 11:30; Stop 04/15/17 at 11:31; Status DC Nitroglycerin (Nitroglycerin 2% Oint) 1 inch ONCE ONCE TOP Last administered on 04/15/17 12:08; Start 04/15/17 at 11:30; Stop 04/15/17 at 11:31; Status DC Enoxaparin Sodium (Lovenox Inj) 60 mg ONCE ONCE SQ Last administered on 12:08; Start 04/15/17 at 11:30; Stop 04/15/17 at 11:31; Status DC Amlodipine Besylate (Norvasc) 10 mg DAILY PO Last administered on 04/19/17 11: 43; Start 04/15/17 at 14:00 Atorvastatin Calcium (Lipitor) 20 mg HS PO Last administered on 04/19/17 22:26 ; Start 04/15/17 at 21:00 Isosorbide Dinitrate (Isordil) 10 mg BID@0700,1700 PO Last administered on 04/19 16:37; Start 04/15/17 at 17:00; Stop 04/20/17 at 04:30; Status DC Metoprolol Tartrate (Lopressor) 25 mg Q12HR PO Last administered on 04/15/17 14 :21; Start 04/15/17 at 14:00; Stop 04/15/17 at 15:25; Status DC Warfarin Sodium (Coumadin) 5 mg DAILY@1600 PO ; Start 04/15/17 at 16:00; Stop 04/15/17 at 16:00; Status DC Sodium Chloride (NS Flush) 2 ml UNSCH PRN IV FLUSH FLUSH AFTER USING IV ACCESS ; Start 04/15/17 at 13:00; Status UNV Sodium Chloride (NS Flush) 2 ml BID IV FLUSH ; Start 04/15/17 at 21:00; Status UNV Aspirin (Aspirin Chew) 81 mg DAILY PO Last administered on 04/19/17 11:43; Start 04/16/17 at 09:00 Sodium Chloride (NS Flush) 2 ml UNSCH PRN IV FLUSH FLUSH AFTER USING IV ACCESS ; Start 04/15/17 at 13:00 Sodium Chloride (NS Flush) 2 ml BID IV FLUSH Last administered on 04/19/17 21: 00; Start 04/15/17 at 21:00 Acetaminophen (Tylenol) 650 mg Q4H PRN PO TEMP > 100.4 Last administered on 15:27; Start 04/15/17 at 13:00 Ondansetron HCl (Zofran Inj) 4 mg Q6H PRN IVP NAUSEA OR VOMITING Last administered on 04/15/17 15:54; Start 04/15/17 at 13:00; Stop 04/19/17 at 11:28; Status DC Prochlorperazine (Compazine Supp) 25 mg Q12H PRN RECTAL NAUSEA OR VOMITING; Start 04/15/17 at 13:00 Zolpidem Tartrate (Ambien) 5 mg HS PRN PO INSOMNIA; Start 04/15/17 at 13:00 Acetaminophen (Tylenol) 650 mg Q6H PRN PO PAIN SCALE 1 TO 2; Start 04/15/17 at 13:00; Stop 04/19/17 at 11:23; Status DC Acetaminophen/ Hydrocodone Bitart (Ihlen 10-325 Mg) 1 tab Q4H PRN PO PAIN SCALE 6 TO 10; Start 04/15/17 at 13:00; Stop 04/19/17 at 11:25; Status DC Oxycodone/ Acetaminophen (Percocet 5-325 Mg) 1 tab Q6H PRN PO PAIN SCALE 3 TO 5 Last administered on 04/16/17 02:21; Start 04/15/17 at 13:00; Stop 04/19/17 at 11:25; Status DC Morphine Sulfate (Morphine Inj) 2 mg Q3H PRN IV Pain 3-5; if unable to take PO ; Start 04/15/17 at 13:00 Morphine Sulfate (Morphine Inj) 4 mg Q3H PRN IV Pain 6-10;if unable to take PO ; Start 04/15/17 at 13:00 Naloxone HCl (Narcan Inj) 0.4 mg UNSCH PRN IV SEE LABEL COMMENTS; Start at 13:00 Senna/Docusate Sodium (Kandi-Colace) 1 tab BID PO Last administered on 22:27; Start 04/15/17 at 21:00 Magnesium Hydroxide (Milk Of Magnesia Liq) 30 ml Q12H PRN PO MILD - MODERATE CONSTIPATION; Start 04/15/17 at 13:00 Sennosides (Senokot) 17.2 mg Q12H PRN PO MODERATE - SEVERE CONSTIPATION; Start 04/15/17 at 13:00 Bisacodyl (Dulcolax Supp) 10 mg DAILY PRN RECTAL SEVERE CONSITIPATION; Start at 13:00 Lactulose (Lactulose Liq) 30 ml DAILY PRN PO SEVERE CONSITIPATION; Start at 13:00 Nitroglycerin (Nitrostat Sl) 0.4 mg Q5M PRN SL CHEST PAIN; Start 04/15/17 at 13: 15 Labetalol HCl (Trandate Inj) 20 mg ONCE ONCE IV PUSH Last administered on 13:27; Start 04/15/17 at 13:30; Stop 04/15/17 at 13:31; Status DC Miscellaneous Information ALL NURSING DEPARTME... UNSCH PRN OTHER SEE LABEL COMMENTS; Start 04/15/17 at 16:00; Stop 04/16/17 at 15:59; Status DC Patient Medication Teaching (Coumadin Booklet) 1 ONCE ONCE OTHER Last administered on 04/15/17 17:37; Start 04/15/17 at 16:00; Stop 04/15/17 at 16:01; Status DC Enoxaparin Sodium (Lovenox Inj) 60 mg Q12H SQ ; Start 04/15/17 at 23:00; Stop 04/15/17 at 23:00; Status DC Metoprolol Tartrate (Lopressor) 50 mg Q12HR PO Last administered on 04/19/17 22:27; Start 04/15/17 at 21:00 Clonidine (Catapres) 0.1 mg Q4H PRN PO SBP>160, DBP>90 Last administered on 04:29; Start 04/15/17 at 15:30 Hydralazine HCl (Apresoline Inj) 20 mg Q4H PRN IV PUSH SBP>160, DBP>90 Last administered on 04/15/17 15:53; Start 04/15/17 at 15:30 Regadenoson (Lexiscan Inj) 0.4 mg STK-MED ONCE .ROUTE Last administered on 11:22; Start 04/16/17 at 11:22; Stop 04/16/17 at 11:23; Status DC Warfarin Sodium (Coumadin) 5 mg DAILY@1600 PO Last administered on 04/16/17 17: 22; Start 04/16/17 at 16:00; Status Future Hold Heparin Sodium/ Dextrose 250 ml @ 8 mls/hr TITRATE IV Last administered on 04/18 16:40; Start 04/17/17 at 11:00; Stop 04/19/17 at 11:22; Status DC Heparin Sodium (Porcine) (Heparin Inj) 5,000 units UNSCH PRN IV aPTT less than 25; Start 04/17/17 at 11:00; Stop 04/19/17 at 11:22; Status DC Heparin Sodium (Porcine) (Heparin Inj) 2,500 units UNSCH PRN IV aPTT 25 to 39; Start 04/17/17 at 11:00; Stop 04/19/17 at 11:22; Status DC Potassium Phosphate 30 mmol/ Sodium Chloride 260 ml @ 43.333 mls/ hr ONCE ONCE IV Last administered on 04/18/17 15:46; Start 04/18/17 at 14:00; Stop 05/25 at 19:59; Status DC Potassium Chloride (KCl) 40 meq ONCE ONCE PO Last administered on 04/18/17 15 :47; Start 04/18/17 at 14:00; Stop 04/18/17 at 14:30; Status DC Sodium Chloride 1,000 ml @ 100 mls/hr Q10H IV Last administered on 04/18/17 15:47; Start 04/18/17 at 15:03; Stop 04/19/17 at 11:22; Status DC Diphenhydramine HCl (Benadryl) 50 mg TEXTILE DYER PO ; Start 04/18/17 at 15:15; Stop 04/19/17 at 11:24; Status DC Diazepam (Valium) 5 mg TEXTILE DYER PRN PO ON-CALL; Start 04/18/17 at 15:15; Stop at 11:28; Status DC Heparin Sodium/ Sodium Chloride 1,000 ml @ As Directed STK-MED ONCE .ROUTE Last administered on 04/19/17 07:39; Start 04/19/17 at 07:39; Stop 04/19/17 at 07:40; Status DC Midazolam HCl (Versed Inj) 2 mg STK-MED ONCE .ROUTE Last administered on 08:40; Start 04/19/17 at 07:41; Stop 04/19/17 at 07:42; Status DC Fentanyl Citrate (fentaNYL INJ) 100 mcg STK-MED ONCE .ROUTE ; Start 04/19/17 at 07:41; Stop 04/19/17 at 07:42; Status DC Heparin Sodium (Porcine) (Heparin Inj) 10,000 units STK-MED ONCE .ROUTE ; Start 04/19/17 at 07:42; Stop 04/19/17 at 07:43; Status DC Sodium Chloride 1,000 ml @ 100 mls/hr Q10H IV ; Start 04/19/17 at 08:35; Stop 04/24/17 at 08:34 Aspirin (Aspirin) 325 mg TEXTILE DYER PO ; Start 04/19/17 at 08:45; Stop 04/23/17 at 08:44 Diphenhydramine HCl (Benadryl) 50 mg TEXTILE DYER PO ; Start 04/19/17 at 08:45; Stop 04/23/17 at 08:44 Diazepam (Valium) 5 mg TEXTILE DYER PO ; Start 04/19/17 at 08:45; Stop 04/23/17 at 08:44 Bivalirudin (Angiomax Inj) 250 mg STK-MED ONCE .ROUTE Last administered on 04/19 09:05; Start 04/19/17 at 09:02; Stop 04/19/17 at 09:03; Status DC Nitroglycerin/ Dextrose 250 ml @ As Directed STK-MED ONCE .ROUTE ; Start at 09:32; Stop 04/19/17 at 09:33; Status DC Clopidogrel Bisulfate (Plavix) 600 mg STK-MED ONCE .ROUTE Last administered on 04/19/17 10:17; Start 04/19/17 at 10:02; Stop 04/19/17 at 10:03; Status DC Bivalirudin (Angiomax Inj) 250 mg STK-MED ONCE .ROUTE Last administered on 04/19 10:05; Start 04/19/17 at 10:05; Stop 04/19/17 at 10:06; Status DC Sodium Chloride 1,000 ml @ 150 mls/hr Q6H40M IV ; Start 04/19/17 at 10:26; Stop 04/19/17 at 11:22; Status DC Sodium Chloride (NS Flush) 2 ml UNSCH PRN IV FLUSH FLUSH AFTER USING IV ACCESS ; Start 04/19/17 at 10:30; Stop 04/19/17 at 11:28; Status DC Sodium Chloride (NS Flush) 2 ml BID IV FLUSH ; Start 04/19/17 at 21:00; Stop 06/25 at 21:00; Status DC Acetaminophen (Tylenol) 325 mg Q4H PRN PO PAIN SCALE 1 TO 2; Start 04/19/17 at 10:30 Oxycodone/ Acetaminophen (Percocet 5-325 Mg) 1 tab Q4H PRN PO PAIN SCALE 3 TO 10; Start 04/19/17 at 10:30 Aspirin (Aspirin Chew) 81 mg DAILY PO ; Start 04/19/17 at 10:30; Stop 04/19/17 at 11:24; Status DC Clopidogrel Bisulfate (Plavix) 75 mg DAILY PO ; Start 04/20/17 at 09:00 Nitroglycerin/ Dextrose 250 ml @ 1.5 mls/hr TITRATE PRN IV Keep SBP > 90 mmHg Last administered on 04/19/17 10:30; Start 04/19/17 at 10:30 Bivalirudin 250 mg/Sodium Chloride 50 ml @ 0 mls/hr Q0M IV ; Start 04/19/17 at 10:26; Stop 04/19/17 at 12:25; Status DC Miscellaneous Information 1 ONCE ONCE XX ; Start 04/19/17 at 10:30; Stop at 11:21; Status DC Ondansetron HCl (Zofran Inj) 4 mg Q4H PRN IV PUSH NAUSEA Last administered on 15:27; Start 04/19/17 at 10:30 Isosorbide Dinitrate (Isordil) 10 mg BID@0700,1700 PO Last administered on 04/20 06:25; Start 04/20/17 at 07:00 Lisinopril (Prinivil) 20 mg DAILY PO ; Start 04/20/17 at 09:30; Status UNV Urinary Catheter: No Vascular Central Line Catheter: No A/P Problem List: (1) Noncompliance ICD Code: Z91.19 - Patient's noncompliance with other medical treatment and regimen (2) Adjustment disorder with depressed mood ICD Code: F43.21 - Adjustment disorder with depressed mood Status: Acute (3) Schizo-affective schizophrenia, chronic condition ICD Code: F25.8 - Other schizoaffective disorders Status: Acute (4) Chronic kidney disease, stage 3 ICD Code: N18.3 - Chronic kidney disease, stage 3 (moderate) Status: Acute (5) Hypertension ICD Code: I10 - Essential (primary) hypertension Status: Chronic (6) New onset atrial fibrillation ICD Code: I48.91 - Unspecified atrial fibrillation Status: Acute (7) Acute kidney injury ICD Code: N17.9 - Acute kidney failure, unspecified Status: Acute (8) Elevated troponin I level ICD Code: R79.89 - Other specified abnormal findings of blood chemistry Status: Acute (9) Chest pain ICD Code: R07.9 - Chest pain, unspecified Status: Acute Assessment and Plan Chest pain with what sounds like chronic ischemic heart disease Elevated troponins suspect non-ST elevation MIs class 2 SUSPECT DUE TO RENAL FAILURE Chronic renal failure stage III Malignant medical noncompliance Psychiatric disorders Hypertension uncontrolled adjust blood pressure medications continue on statin Hyperlipidemia continue on statin Posttraumatic stress disorder Continue to monitor troponins. We'll get an echocardiogram. EF 30-35% A.m. labs PT and OT to eval and treat Case management for discharge planning I discussed with garden machinery mechanic ER and the physician and the patient We will adjust blood pressure medications NEEDS CATH ON 04-19 HAD STENTS PLACED Following stenting of the left main, the distal left main has gone from 90% to 0% without evidence of thrombus or dissection. Following stenting of the posterior descending artery branch, the 90% stenosis has been reduced to 0% without evidence of thrombus or dissection. CONCLUSIONS 1. Left main and three-vessel coronary artery disease. 2. Three patent bypass grafts found. 3. Critical compromise of the distal left main now successfully stented restoring flow to the circumflex artery. 4. Critical stenosis of the vein graft to the posterior descending artery branch status post stenting. 5. Persistent disease of the right posterolateral branch which cannot be of reached percutaneously. PLAN The patient is right now on aspirin and Plavix. Will probably discontinue aspirin and send him home on a combination of Plavix and Eliquis. HYPOKALEMIA WILL REPLACE AM LABS ADJUST BP MEDS HOPEFULLY HOME NEXT 24-48 HOURS Jay Mirza DO Apr 20, 2017 09:29
--- NOTE | 2017-04-20 09:30 | PD.CARD.PN ---
Subjective Subjective Remarks no angina, no dyspnea Objective Medications Current Medications Medications (Trade) Dose Ordered Sig/Heladio Route Start Time Stop Time Status Last Admin (Norvasc) 10 mg DAILY PO 04/15/17 14:00 04/19/17 11:43 (Lipitor) 20 mg HS PO 04/15/17 21:00 04/19/17 22:26 (Aspirin Chew) 81 mg DAILY PO 04/16/17 09:00 04/19/17 11:43 (NS Flush) 2 ml UNSCH PRN IV FLUSH 04/15/17 13:00 (NS Flush) 2 ml BID IV FLUSH 04/15/17 21:00 04/19/17 21:00 (Tylenol) 650 mg Q4H PRN PO 04/15/17 13:00 04/19/17 15:27 (Compazine Supp) 25 mg Q12H PRN RECTAL 04/15/17 13:00 (Ambien) 5 mg HS PRN PO 04/15/17 13:00 (Morphine Inj) 2 mg Q3H PRN IV 04/15/17 13:00 (Morphine Inj) 4 mg Q3H PRN IV 04/15/17 13:00 (Narcan Inj) 0.4 mg UNSCH PRN IV 04/15/17 13:00 (Kandi-Colace) 1 tab BID PO 04/15/17 21:00 04/19/17 22:27 (Milk Of Magnesia Liq) 30 ml Q12H PRN PO 04/15/17 13:00 (Senokot) 17.2 mg Q12H PRN PO 04/15/17 13:00 (Dulcolax Supp) 10 mg DAILY PRN RECTAL 04/15/17 13:00 (Lactulose Liq) 30 ml DAILY PRN PO 04/15/17 13:00 (Nitrostat Sl) 0.4 mg Q5M PRN SL 04/15/17 13:15 (Lopressor) 50 mg Q12HR PO 04/15/17 21:00 04/19/17 22:27 (Catapres) 0.1 mg Q4H PRN PO 04/15/17 15:30 04/20/17 04:29 (Apresoline Inj) 20 mg Q4H PRN IV PUSH 04/15/17 15:30 04/15/17 15:53 (Coumadin) 5 mg DAILY@1600 PO 04/16/17 16:00 Future Hold 04/16/17 17:22 Sodium Chloride 1,000 ml @ 100 mls/hr Q10H IV 04/19/17 08:35 04/24/17 08:34 (Aspirin) 325 mg PROPERTY ASSESSMENT MONITOR PO 04/19/17 08:45 04/23/17 08:44 (Benadryl) 50 mg PROPERTY ASSESSMENT MONITOR PO 04/19/17 08:45 04/23/17 08:44 (Valium) 5 mg PROPERTY ASSESSMENT MONITOR PO 04/19/17 08:45 04/23/17 08:44 (Tylenol) 325 mg Q4H PRN PO 04/19/17 10:30 (Percocet 5-325 Mg) 1 tab Q4H PRN PO 04/19/17 10:30 (Plavix) 75 mg DAILY PO 04/20/17 09:00 Nitroglycerin/ Dextrose 250 ml @ 1.5 mls/hr TITRATE PRN IV 04/19/17 10:30 04/19/17 10:30 (Zofran Inj) 4 mg Q4H PRN IV PUSH 04/19/17 10:30 04/19/17 15:27 (Isordil) 10 mg BID@0700,1700 PO 04/20/17 07:00 04/20/17 06:25 Vital Signs / I&O Vital Signs Date Time Temp Pulse Resp B/P (MAP) Pulse Ox O2 Delivery O2 Flow Rate FiO2 04/20/17 07:55 97.5 82 16 141/76 (97) 98 04/20/17 06:00 62 04/20/17 05:00 62 04/20/17 04:00 74 04/20/17 03:00 77 04/20/17 03:00 98.5 80 20 119/76 (90) 97 04/20/17 02:00 59 04/20/17 01:00 62 04/20/17 00:00 64 04/19/17 23:00 60 04/19/17 23:00 98.4 80 20 119/76 (90) 97 04/19/17 22:00 62 04/19/17 21:00 66 04/19/17 20:00 70 04/19/17 19:00 72 04/19/17 18:42 140/87 (104) 04/19/17 18:00 77 04/19/17 17:38 99 04/19/17 17:03 80 04/19/17 16:37 18 04/19/17 16:01 73 19 155/94 (114) 98 04/19/17 16:00 92 04/19/17 15:00 66 04/19/17 14:00 74 04/19/17 13:00 86 04/19/17 12:00 72 18 158/101 (120) 04/19/17 12:00 69 04/19/17 11:00 82 18 158/92 (114) 98 04/19/17 11:00 70 04/19/17 11:00 98 Room Air 04/19/17 10:30 92 158/92 04/19/17 09:48 Room Air 21 I/O 04/19/17 04/19/17 04/19/17 04/20/17 04/20/17 04/20/17 07:00 15:00 23:00 07:00 15:00 23:00 Intake Total 746 ml 1000 ml 1030 ml 483 ml Output Total 1000 ml 650 ml 900 ml Balance -254 ml 1000 ml 380 ml -417 ml Intake Oral 650 ml 960 ml 440 ml IV Total 96 ml 1000 ml 70 ml 43 ml Output Urine Total 1000 ml 650 ml 900 ml # Bowel Movements 1 1 1 Physical Exam GENERAL: Well developed, well nourished. No acute distress. HEENT: Jugular venous pressure is normal. CHEST: Lungs clear to auscultation bilaterally. Unlabored respiratory effort. CARDIAC: Regular rate and rhythm without S3, S4,. ABDOMEN: Bowel sounds present. EXTREMITIES: No clubbing, cyanosis, or edema. Right groin OK. Laboratory Laboratory Tests Test 04/15/17 10:16 04/17/17 06:22 04/17/17 19:37 04/18/17 11:40 B-Type Natriuretic Peptide 802 PG/ML Lipase 126 U/L Hemoglobin A1c 6.3 % Free Thyroxine 0.90 NG/DL Thyroid Stimulating Hormone 3rd Gen 0.731 uIU/ML Total Creatine Kinase 208 U/L Troponin I 1.84 NG/ML Test 04/19/17 07:30 White Blood Count 8.3 TH/MM3 Red Blood Count 4.65 MIL/MM3 Hemoglobin 13.2 GM/DL Hematocrit 41.1 % Mean Corpuscular Volume 88.5 FL Mean Corpuscular Hemoglobin 28.4 PG Mean Corpuscular Hemoglobin Concent 32.1 % Red Cell Distribution Width 14.6 % Platelet Count 167 TH/MM3 Mean Platelet Volume 9.6 FL Neutrophils (%) (Auto) 59.8 % Lymphocytes (%) (Auto) 23.7 % Monocytes (%) (Auto) 12.0 % Eosinophils (%) (Auto) 3.7 % Basophils (%) (Auto) 0.8 % Neutrophils # (Auto) 5.0 TH/MM3 Lymphocytes # (Auto) 2.0 TH/MM3 Monocytes # (Auto) 1.0 TH/MM3 Eosinophils # (Auto) 0.3 TH/MM3 Basophils # (Auto) 0.1 TH/MM3 CBC Comment DIFF FINAL Differential Comment Prothrombin Time 12.5 SEC Prothromb Time International Ratio 1.1 RATIO Activated Partial Thromboplast Time 96.2 SEC Blood Urea Nitrogen 27 MG/DL Creatinine 1.35 MG/DL Random Glucose 95 MG/DL Total Protein 7.5 GM/DL Albumin 3.5 GM/DL Calcium Level 9.5 MG/DL Phosphorus Level 2.7 MG/DL Magnesium Level 2.2 MG/DL Alkaline Phosphatase 105 U/L Aspartate Amino Transf (AST/SGOT) 28 U/L Alanine Aminotransferase (ALT/SGPT) 26 U/L Total Bilirubin 0.9 MG/DL Sodium Level 135 MEQ/L Potassium Level 3.7 MEQ/L Chloride Level 101 MEQ/L Carbon Dioxide Level 26.9 MEQ/L Anion Gap 7 MEQ/L Estimat Glomerular Filtration Rate 52 ML/MIN Assessment and Plan Problem List: (1) Elevated troponin I level ICD Codes: R79.89 - Other specified abnormal findings of blood chemistry Status: Acute Plan: NTSEMI (2) Noncompliance ICD Codes: Z91.19 - Patient's noncompliance with other medical treatment and regimen Plan: needs home health (3) Chronic kidney disease, stage 3 ICD Codes: N18.3 - Chronic kidney disease, stage 3 (moderate) Status: Acute Plan: No ACEI or ARB (4) Psychiatric problem ICD Codes: F99 - Mental disorder, not otherwise specified Plan: needs help (5) Chest pain ICD Codes: R07.9 - Chest pain, unspecified Status: Acute Plan: resolved (6) Hypertension ICD Codes: I10 - Essential (primary) hypertension Status: Chronic Plan: add clondine. DC nitro drip (7) Atrial fibrillation ICD Codes: I48.91 - Unspecified atrial fibrillation Plan: add Eliquis 5mg bid (8) Stented coronary artery ICD Codes: Z95.5 - Presence of coronary angioplasty implant and graft Plan: Cont clopidogrel 75 mg daily. Stop ASA at discharge (the so-called "WOEST " approach) Assessment and Plan I am signing off/ avail prn. F/U at [place]. Vernon Godinez MD Apr 20, 2017 09:30
[2017-04-20] MEDS: CLOPIDOGREL 75 MG TAB PO SCH (10:36)
[2017-04-20] MEDS: METOPROLOL TARTRATE 50 MG TAB PO SCH ×2 (10:36→20:59)
[2017-04-20] MEDS: DOCUSATE SODIUM 50 MG/SENNA 8.6 MG TAB PO SCH ×2 (10:36→20:59)
[2017-04-20] MEDS: ASPIRIN 81 MG CHEW TAB PO SCH (10:36)
[2017-04-20] MEDS: cloNIDine HCL 0.1 MG TAB PO SCH ×2 (10:37→20:59)
[2017-04-20] MEDS: LISINOPRIL 20 MG TAB PO SCH (10:37)
--- NOTE | 2017-04-20 14:05 | EKG ---
Date Performed: 04/20/2017 Time Performed: 06:22:08 PTAGE: 71 years EKG: Atrial fibrillation Left axis deviation IV conduction defect Poor R wave progression - harsha ot rule out anteroseptal infarct Left ventricular hypertrophy Lateral ST-T changes may be due to hype rtrophy and/or ischemia Compared to prior tracing no significant change Abnormal ECG PREVIOUS TRACING : 04/17/17 DOCTOR: Betsy Fierro Interpretating Date/Time 04/20/2017 13:59:53
[2017-04-20] MEDS: NITROGLYCERIN-D5W 50 MG/250 ML 250 ML IV PRN (14:54)
[2017-04-20] MEDS: ATORVASTATIN 20 MG TAB PO SCH (20:59)
[2017-04-21] VITALS (18 sets, daily range): BP systolic 119–129; BP diastolic 71–83; PULSE 50–73; RESP 16–20; TEMP 97.3–97.5; O2SAT 98–100
[2017-04-21] MEDS: SODIUM CHLOR 0.9% 1000 ML INJ 1,000 ML IV SCH ×2 (00:35→09:16)
[2017-04-21] MEDS: ISOSORBIDE DINITRATE 5 MG TAB PO SCH (06:19)
[2017-04-21 08:48] LABS: AUTOMATED NEUTROPHIL # 5.9 TH/MM3 (1.8-7.7); BASOPHIL # 0.1 TH/MM3 (0-0.2); BASOPHIL % 0.6 % (0.0-2.0); EOSINOPHIL # 0.3 TH/MM3 (0-0.4); EOSINOPHIL % 3.2 % (0.0-4.0); HEMATOCRIT 39.1 % (39.0-51.0); HEMO FLAGS DIFF FINAL; LYMPH % 15.7 % (9.0-44.0); LYMPHOCYTE # 1.3 TH/MM3 (1.0-4.8); MEAN CELL VOLUME 88.4 FL (80.0-100.0); MEAN CORPUSCULAR HEMOGLOBIN 29.3 PG (27.0-34.0); MEAN CORPUSCULAR HGB CONC 33.1 % (32.0-36.0); MONO % 10.1 % (0.0-8.0); NEUT % 70.4 % (16.0-70.0); PLATELET COUNT 169 TH/MM3 (150-450); RED BLOOD COUNT 4.42 MIL/MM3 (4.50-5.90); RED CELL DISTRIBUTION WIDTH 14.1 % (11.6-17.2); WHITE BLOOD COUNT 8.4 TH/MM3 (4.0-11.0)
[2017-04-21 08:59] LABS: PROTHROMBIN TIME - PATIENT 11.4 SEC (9.8-11.6)
[2017-04-21 09:06] LABS: ANION GAP 4 MEQ/L (5-15); AST (GOT) 35 U/L (15-37); BICARBONATE 27.9 MEQ/L (21.0-32.0); BLOOD UREA NITROGEN 34 MG/DL (7-18); CHLORIDE 101 MEQ/L (98-107); GLOMERULAR FILTRATION RATE 37 ML/MIN (>89); MAGNESIUM 2.4 MG/DL (1.5-2.5); POTASSIUM 4.3 MEQ/L (3.5-5.1); SODIUM (NA) 133 MEQ/L (136-145)
[2017-04-21 09:08] LABS: ALT (GPT) 29 U/L (12-78)
[2017-04-21 09:09] LABS: ALKALINE PHOSPHATASE 106 U/L (45-117)
[2017-04-21] MEDS: METOPROLOL TARTRATE 50 MG TAB PO SCH (09:14)
[2017-04-21] MEDS: SODIUM CHLORIDE 0.9% FLUSH 10 ML FLUSH IV FLUSH SCH (09:14)
[2017-04-21] MEDS: CLOPIDOGREL 75 MG TAB PO SCH (09:14)
[2017-04-21] MEDS: cloNIDine HCL 0.1 MG TAB PO SCH (09:15)
[2017-04-21] MEDS: ASPIRIN 81 MG CHEW TAB PO SCH (09:15)
[2017-04-21] MEDS: DOCUSATE SODIUM 50 MG/SENNA 8.6 MG TAB PO SCH (09:15)
[2017-04-21] MEDS: LISINOPRIL 20 MG TAB PO SCH (09:15)
[2017-04-21 09:17] LABS: CREATINE KINASE 68 U/L (39-308)
[2017-04-21] MEDS ORDERED: PLAV75TA29 PO (10:20)
[2017-04-21] MEDS ORDERED: CLON.1 PO (10:20)
[2017-04-21] MEDS ORDERED: LISI-515 PO (10:20)
[2017-04-21] MEDS ORDERED: METO-309 PO (10:20)
[2017-04-21] MEDS ORDERED: APIX2.5T PO (10:41)
--- NOTE | 2017-04-21 10:46 | HHI.FF ---
Face to Face Verification Diagnosis: (1) NSTEMI (non-ST elevated myocardial infarction) (2) Elevated troponin I level (3) New onset atrial fibrillation (4) Acute kidney injury Home Health Nursing Order: Medical education CHF education Nursing assessment with vital signs I have seen patient Sommer Murray on 04/21/17. My clinical findings support the need for the requested home health care services because: Med compliance is questionable I certify that my clinical findings support that this patient is homebound because: Need for psychosocial assistance Edith Diallo MD Apr 21, 2017 10:46
--- NOTE | 2017-04-21 12:37 | HHI.DS ---
Discharge Summary Admission Date Apr 15, 2017 at 12:59 Discharge Date: Apr 21, 2017 Admitting Diagnosis AFIB CVR, HTN UNCONTROLLED, (1) Noncompliance ICD Code: Z91.19 - Patient's noncompliance with other medical treatment and regimen Diagnosis: Secondary (2) Adjustment disorder with depressed mood ICD Code: F43.21 - Adjustment disorder with depressed mood Diagnosis: Secondary Status: Acute (3) Schizo-affective schizophrenia, chronic condition ICD Code: F25.8 - Other schizoaffective disorders Status: Acute (4) Chronic kidney disease, stage 3 ICD Code: N18.3 - Chronic kidney disease, stage 3 (moderate) Diagnosis: Secondary Status: Acute (5) Hypertension ICD Code: I10 - Essential (primary) hypertension Diagnosis: Principal Status: Chronic (6) New onset atrial fibrillation ICD Code: I48.91 - Unspecified atrial fibrillation Status: Acute (7) Acute kidney injury ICD Code: N17.9 - Acute kidney failure, unspecified Diagnosis: Secondary Status: Acute (8) Elevated troponin I level ICD Code: R79.89 - Other specified abnormal findings of blood chemistry Diagnosis: Principal Status: Acute (9) Chest pain ICD Code: R07.9 - Chest pain, unspecified Diagnosis: Principal Status: Acute Procedures CARDIAC CATH TODAY SP STENTS 9-11 HAD NUCLEAR STRESS TEST 9-8 Following stenting of the left main, the distal left main has gone from 90% to 0% without evidence of thrombus or dissection. Following stenting of the posterior descending artery branch, the 90% stenosis has been reduced to 0% without evidence of thrombus or dissection. cath 9-11 CONCLUSIONS 1. Left main and three-vessel coronary artery disease. 2. Three patent bypass grafts found. 3. Critical compromise of the distal left main now successfully stented restoring flow to the circumflex artery. 4. Critical stenosis of the vein graft to the posterior descending artery branch status post stenting. 5. Persistent disease of the right posterolateral branch which cannot be of reached percutaneously. PLAN The patient is right now on aspirin and Plavix. Will probably discontinue aspirin and send him home on a combination of Plavix and Eliquis. Brief History - From Admission Patient is a 71-year-old male who is [facility]. He was seen there today and was sent over to the hospital regarding chest pain. Patient has a extensive cardiac history with a history of bypass of 5 vessels.. Patient has history of psychiatric disorder also so history is not very reliable Patient has chest discomfort especially when he lies down at night does not get it when he moves around. It is a pressure-like feeling like an elephant on his chest. Denies any chest pain at this time. States that he's had this on and off for the past 2 weeks Patient has posterior medics stress disorder also Patient's blood pressures completely uncontrolled. Will be admitted. His troponins are elevated. Will be monitored by cardiology and trended. We'll get an echo. We'll continue to follow him throughout the admission CBC/BMP: 04/21/17 0825 04/21/17 0825 Significant Findings Laboratory Tests Test 04/19/17 07:30 04/21/17 08:25 Monocytes (%) (Auto) 12.0 % (0.0-8.0) 10.1 % (0.0-8.0) Monocytes # (Auto) 1.0 TH/MM3 (0-0.9) Prothrombin Time 12.5 SEC (9.8-11.6) Activated Partial Thromboplast Time 96.2 SEC (24.3-30.1) Blood Urea Nitrogen 27 MG/DL (7-18) 34 MG/DL (7-18) Creatinine 1.35 MG/DL (0.60-1.30) 1.82 MG/DL (0.60-1.30) Sodium Level 135 MEQ/L (136-145) 133 MEQ/L (136-145) Estimat Glomerular Filtration Rate 52 ML/MIN (>89) 37 ML/MIN (>89) Red Blood Count 4.42 MIL/MM3 (4.50-5.90) Neutrophils (%) (Auto) 70.4 % (16.0-70.0) Random Glucose 122 MG/DL (74-106) Albumin 3.3 GM/DL (3.4-5.0) Anion Gap 4 MEQ/L (5-15) PE at Discharge GENERAL: SKIN: Warm and dry. HEAD: Atraumatic. Normocephalic. EYES: Pupils equal and round. No scleral icterus. No injection or drainage. ENT: No nasal bleeding or discharge. Mucous membranes pink and moist. NECK: Trachea midline. No JVD. CARDIOVASCULAR: Regular rate and rhythm. RESPIRATORY: No accessory muscle use. Clear to auscultation. Breath sounds equal bilaterally. GASTROINTESTINAL: Abdomen soft, non-tender, nondistended. Hepatic and splenic margins not palpable. MUSCULOSKELETAL: Extremities without clubbing, cyanosis, or edema. No obvious deformities. NEUROLOGICAL: Awake and alert. No obvious cranial nerve deficits. Motor grossly within normal limits. Five out of 5 muscle strength in the arms and legs. Normal speech. PSYCHIATRIC: Appropriate mood and affect; insight and judgment normal. Hospital Course Patient admitted with elevated on non-STEMI, he has a significant history of noncompliance and psychiatry disorder, chest pain hypertension atrial fibrillation, cardiology consulted patient had a cardiac catheter with stenting , anticoagulation will be Plavix and elliquis, continue antihypertensive medication and statin, patient follow up with cardiology as an outpatient. Home health care has been ordered [id number] encounter performed with the patient on discharge day, as well as physical exam, summary of hospitalization course and postdischarge plan has been D/W the patient. D/W nurse D/W disease case manager. Discharge medications reviewed and printed and signed, post discharge follow up visit with PCP and other specialist as well as Brief hospital course and discharge summary has been placed. Pt Condition on Discharge: Fair Discharge Disposition: Disch w/ Home Health Serv Discharge Time: > 30 minutes Discharge Instructions DIET: Follow Instructions for: Heart Healthy Diet Activities you can perform: Weight Bearing as Susan Follow up Referrals: Cardiology - 1 Week with Vernon Godinez MD New Medications: Apixaban (Eliquis) 2.5 Mg Tab 2.5 MG PO BID for Blood Clot Prevention for 60 Days, #120 TAB 0 Refills Clonidine (Catapres) 0.1 Mg Tab 0.1 MG PO Q12HR for htn, #60 TAB Clopidogrel (Plavix) 75 Mg Tab 75 MG PO DAILY for afib, #30 TAB Lisinopril (Lisinopril) 20 Mg Tab 20 MG PO DAILY for htn, #30 TAB Metoprolol Tartrate (Lopressor) 50 Mg Tab 50 MG PO Q12HR for htn, #60 TAB Continued Medications: Amlodipine (Norvasc) 10 Mg Tab 10 MG PO DAILY for Blood Pressure Management, #30 TAB 0 Refills Atorvastatin (Atorvastatin) 20 Mg Tab 20 MG PO HS for Cholesterol Management, #30 TAB 0 Refills Isosorbide Dinitrate (Isosorbide Dinitrate) 10 Mg Tab 10 MG PO BID, #60 TAB 0 Refills Nitroglycerin SL (Nitrostat SL) 0.4 Mg Subl 0.4 MG SL DIRECTED PRN for CHEST PAIN, #100 TAB.SL 0 Refills 1 tablet under the tongue as needed for chest pain. Repeat every 5 minutes for a total of 3 DOSES or call 911 if NO relief. Discontinued Medications: Warfarin (Coumadin) 5 Mg Tab 5 MG PO DAILY@1600 for A-fib, #30 TAB 0 Refills Edith Diallo MD Apr 21, 2017 12:37
== END 2017-04-21 14:16 | disposition home health service (06) | DRG 249 ==
LOC: NEPC 09:47 → NEDA 12:59 → N04B 16:00 → HCIS 04-19 07:53
PROVIDERS: ADMIT Hospitalist; ATTEND Hospitalist
PROC: 02713EZ Dilation of Coronary Artery, Two Arteries with Two Intraluminal Devices, Percutaneous Approach (ICD-10-PCS; principal; 2017-04-19)
PROC: 02703ZZ Dilation of Coronary Artery, One Artery, Percutaneous Approach (ICD-10-PCS; 2017-04-19)
PROC: 4A023N7 Measurement of Cardiac Sampling and Pressure, Left Heart, Percutaneous Approach (ICD-10-PCS; 2017-04-19)
PROC: B2111ZZ Fluoroscopy of Multiple Coronary Arteries using Low Osmolar Contrast (ICD-10-PCS; 2017-04-19)
PROC: B2131ZZ Fluoroscopy of Multiple Coronary Artery Bypass Grafts using Low Osmolar Contrast (ICD-10-PCS; 2017-04-19)
PROC: B41F1ZZ Fluoroscopy of Right Lower Extremity Arteries using Low Osmolar Contrast (ICD-10-PCS; 2017-04-19)
DX: I21.4 Non-ST elevation (NSTEMI) myocardial infarction (principal); I25.119 Atherosclerotic heart disease of native coronary artery with unspecified angina pectoris; N17.9 Acute kidney failure, unspecified; N18.3 Chronic kidney disease, stage 3 (moderate); I48.2 Chronic atrial fibrillation; F25.9 Schizoaffective disorder, unspecified; I12.9 Hypertensive chronic kidney disease with stage 1 through stage 4 chronic kidney disease, or unspecified chronic kidney disease; Z95.1 Presence of aortocoronary bypass graft; I25.2 Old myocardial infarction; I16.0 Hypertensive urgency; Z95.5 Presence of coronary angioplasty implant and graft; E78.00 Pure hypercholesterolemia, unspecified; F32.9 Major depressive disorder, single episode, unspecified; K40.90 Unilateral inguinal hernia, without obstruction or gangrene, not specified as recurrent; F43.10 Post-traumatic stress disorder, unspecified; Z91.19 Patient's noncompliance with other medical treatment and regimen; K80.20 Calculus of gallbladder without cholecystitis without obstruction; K57.90 Diverticulosis of intestine, part unspecified, without perforation or abscess without bleeding; Z79.01 Long term (current) use of anticoagulants; F43.21 Adjustment disorder with depressed mood; E87.6 Hypokalemia
CPT/HCPCS: 71010; 78452; 80053; 82550; 83036; 83690; 83735; 83880; 84100; 84439; 84443; 84484; 85025; 85027; 85610; 85730; 92928; 92929; 93005; 93017; 93306; 93458; 96372; 96374; 96376; A9502; C1725; C1760; C1769; C1876; C1887; C1893; G0269; J0360; J0583; J1644; J1650; J2250; J2405; J2785; J3010; J7030; J7050

== ENCOUNTER 2018-03-14 13:23 | Observation (INO) ==
--- NOTE | 2018-03-14 15:13 | ED ---
HPI General Chief complaint: Recheck/Abnormal Lab/Rx Stated complaint: Medical Time Seen by Provider: 03/14/18 14:48 History of Present Illness HPI narrative: 72-year-old male is brought to the emergency department from [facility] for evaluation of anemia. Per report the patient was sent to the emergency department for possible blood transfusion due to anemia. Paperwork sent with the patient from the facility shows he had labs done today with hemoglobin 6.2, hematocrit 21.2. Per documentation sent from the facility he has a history of Gaucher's disease. The documentation also notes he has a history of dementia. The patient is a poor historian in that he isn't sure exactly what his medical history is however he does know that he is in a hospital and was sent here for a possible blood transfusion. He is awake alert and oriented. The patient denies any complaints. Denies any chest pain, shortness of breath, abdominal pain, nausea, vomiting, diarrhea, black stool, bloody stool, lightheadedness, dizziness, numbness or tingling, weakness. No other complaints. Related Data Home Medications Medication Instructions Recorded Confirmed acetaminophen [Tylenol] 650 mg PO Q4H PRN 03/14/18 03/14/18 amiodarone 200 mg PO BID 03/14/18 03/14/18 amlodipine 10 mg PO DAILY 03/14/18 03/14/18 atorvastatin 20 mg PO DAILY 03/14/18 03/14/18 clopidogrel 75 mg PO DAILY 03/14/18 03/14/18 famotidine 20 mg PO BID 03/14/18 03/14/18 ferrous sulfate 325 mg PO BID 03/14/18 03/14/18 hydralazine 50 mg PO TID 03/14/18 03/14/18 isosorbide dinitrate 40 mg PO BID 03/14/18 03/14/18 levetiracetam 500 mg PO Q12H 03/14/18 03/14/18 ondansetron [Zofran ODT] 4 mg PO TID PRN 03/14/18 03/14/18 quetiapine [Seroquel] 25 mg PO DAILY 03/14/18 03/14/18 tamsulosin 0.4 mg PO DAILY 03/14/18 03/14/18 thiamine HCl (vitamin B1) 100 mg PO DAILY 03/14/18 03/14/18 Allergies Allergy/AdvReac Type Severity Reaction Status Date / Time lisinopril Allergy Unknown Verified 01/04/18 01:32 penicillin G Allergy Unknown Verified 01/04/18 01:32 wool Allergy Unknown Verified 01/04/18 01:32 Review of Systems Except as stated in HPI: all other systems reviewed are negative PMFSH Social History Social History Substance History: No History of Abuse Smoking Status: Former smoker How Often Do You Have a Drink Containing Alcohol: Never Recent Travel in [facility] within the Last 8 Weeks: No Recent Out of Country Travel within the Last 8 Weeks: No Immunization History Tetanus Immunization: Unable to Assess Hx Influenza Vaccine This Season: Unable to Assess Exam Narrative Exam Narrative: GENERAL: Well-nourished and well-developed elderly male patient in no acute distress who is nontoxic appearing. SKIN: Warm and dry. HEAD: Normocephalic and atraumatic. EYES: No injection, drainage, or hyphema noted. PERRLA. EOMI. ENT: No nasal drainage noted. Oropharynx is clear and the TMs are normal with good landmarks. NECK: Supple and the trachea is midline. No lymphadenopathy is noted throughout the cervical chains. No thyroid masses or abnormalities palpated. No carotid bruits auscultated. CARDIOVASCULAR: Regular rate and rhythm. RESPIRATORY: Breath sounds are equal bilaterally with no accessory muscle use, wheezing, rhonchi, or crackles. GASTROINTESTINAL: PEG tube in place. Abdomen is soft, non-tender, and nondistended. No hepatosplenomegaly. RECTAL EXAM: No masses or tenderness, stool is brown. MUSCULOSKELETAL: No obvious deformities, swelling, cyanosis, or ecchymosis is present throughout the upper and lower extremities. Patient has full range of motion without any signs of neurovascular compromise. Distal pulses are 2+ throughout. NEUROLOGICAL: Awake, alert, and oriented. Normal speech. Cranial nerves are grossly intact. Procedures Hemaprompt Stool Procedural Steps Taken: specimen placed in appropriate test area, developer placed on specimen and control areas and controls appropriately positive and negative Hemaprompt Stool Result: negative Course Initial Documented Vital Signs Temperature 98.0 F 03/14/18 14:43 Pulse Rate 66 03/14/18 14:43 Respiratory Rate 19 03/14/18 14:43 Blood Pressure 150/67 H 03/14/18 14:43 Pulse Oximetry 97 03/14/18 14:43 Last Documented Vital Signs Temperature 98.0 F 03/14/18 14:43 Pulse Rate 64 03/14/18 22:29 Respiratory Rate 16 03/14/18 22:29 Blood Pressure 157/85 H 03/14/18 22:29 Pulse Oximetry 96 03/14/18 15:57 Medical Decision Making MARIO Attestation MARIO supervised visit: Yes Attestation: I, Dr. Card, have reviewed the advance practice practitioner's documentation and am in agreement, met with the patient face to face, made the diagnosis, and the medical decision making was done by me. *My assessment and Findings: Patient seen and evaluated with PA, please see PA notes for further details. He has been sent here because of ongoing anemia, has a hemoglobin of 7.6 today. He is Hemoccult negative. At this point, vital signs are stable but considering his cardiac disease, 1 unit of blood was transfused. Planning to release after transfusion. 9:20 PM The patient's blood type reportedly has multiple antigens and blood is to be obtained from blood bank in [place] and will not be received for several hours. Therefore patient will be kept in observation status until he has received 1 unit of blood. MDM Narrative Medical decision making narrative: 72-year-old male brought to the emergency department from care home facility for anemia. Labs were sent from the facility done today show hemoglobin 6.2, hematocrit 21.2. I did review the chart which shows he had labs at our facility yesterday with hemoglobin 7.9, hematocrit 23.7. Hemoccult is negative. IV access is obtained, labs have been drawn and sent. Patient is placed on cardiac telemetry and pulse oximetry monitoring. Patient's hemoglobin is 7.6 today. Discussed with my attending physician and she agrees with transfusion of 1 unit and discharged back to SNF. Patient has remained stable and without complaint here in the ED. I discussed the case with Dr. Ac who agrees to accept patient under observation status. Dr. Ac spoke to a another [facility] regarding this patient 's admission because she was concerned that the patient did not require admission to the hospital for a single unit transfusion of blood. She was instructed that the patient should instead be placed under an ED hold for obtaining his blood transfusion, therefore the admission was canceled, a misogram was sent. The patient is awaiting arrival of his blood for the single unit of packed red blood cells to be administered and then he will be discharged back to his care home. Differential Diagnosis Differential Diagnosis: Anemia of chronic disease versus anemia of blood loss versus GI bleed Lab Data Result diagrams: 03/14/18 15:20 03/14/18 15:20 Lab Results 03/14/18 03/14/18 03/14/18 Range/Units 15:20 15:20 15:20 WBC 6.3 (4.0-11.0) th/mm3 RBC 2.50 L (4.50-5.90) mil/mm3 Hgb 7.6 L (13.0-17.0) gm/dL Hct 23.7 L (39.0-51.0) % MCV 94.6 (80.0-100.0) fL MCH 30.2 (27.0-34.0) pg MCHC 31.9 L (32.0-36.0) % RDW 22.5 H (11.6-17.2) % Plt Count 189 (150-450) th/mm3 MPV 9.0 (7.0-11.0) fL Neut % (Auto) 71.5 H (16.0-70.0) % Lymph % (Auto) 14.7 (9.0-44.0) % [place] % (Auto) 10.8 H (0.0-8.0) % Eos % (Auto) 2.5 (0.0-4.0) % Baso % (Auto) 0.5 (0.0-2.0) % Neut # (Auto) 4.5 (1.8-7.7) th/mm3 Lymph # (Auto) 0.9 L (1.0-4.8) th/mm3 [place] # (Auto) 0.7 (0.0-0.9) th/mm3 Eos # (Auto) 0.2 (0.0-0.4) th/mm3 Baso # (Auto) 0.0 (0.0-0.2) th/mm3 WBC Differential . Differential Comment Auto diff final PT 11.8 H (9.8-11.6) sec INR 1.2 Ratio APTT 29.4 (24.3-30.1) sec Sodium 142 (136-145) meq/L Potassium 4.2 (3.5-5.1) meq/L Chloride 110 H (98-107) meq/L Carbon Dioxide 24.4 (21.0-32.0) meq/L Anion Gap 8 (5-15) meq/L BUN 13 (7-18) mg/dL Creatinine 1.89 H (0.60-1.30) mg/dL Estimated GFR 35 L (>89) mL/min Random Glucose 131 H (74-106) mg/dL Calcium 8.6 (8.5-10.1) mg/dL Total Bilirubin 0.5 (0.2-1.0) mg/dL AST 23 (15-37) U/L ALT 15 (12-78) U/L Alkaline Phosphatase 112 (45-117) U/L Total Protein 7.2 (6.4-8.2) g/dL Albumin 2.6 L (3.4-5.0) g/dL Blood Type Antibody Screen Ab Screen Tube Method Prewarmed Antibody Srcn Crossmatch 03/14/18 Range/Units 15:20 WBC (4.0-11.0) th/mm3 RBC (4.50-5.90) mil/mm3 Hgb (13.0-17.0) gm/dL Hct (39.0-51.0) % MCV (80.0-100.0) fL MCH (27.0-34.0) pg MCHC (32.0-36.0) % RDW (11.6-17.2) % Plt Count (150-450) th/mm3 MPV (7.0-11.0) fL Neut % (Auto) (16.0-70.0) % Lymph % (Auto) (9.0-44.0) % [place] % (Auto) (0.0-8.0) % Eos % (Auto) (0.0-4.0) % Baso % (Auto) (0.0-2.0) % Neut # (Auto) (1.8-7.7) th/mm3 Lymph # (Auto) (1.0-4.8) th/mm3 [place] # (Auto) (0.0-0.9) th/mm3 Eos # (Auto) (0.0-0.4) th/mm3 Baso # (Auto) (0.0-0.2) th/mm3 WBC Differential Differential Comment PT (9.8-11.6) sec INR Ratio APTT (24.3-30.1) sec Sodium (136-145) meq/L Potassium (3.5-5.1) meq/L Chloride (98-107) meq/L Carbon Dioxide (21.0-32.0) meq/L Anion Gap (5-15) meq/L BUN (7-18) mg/dL Creatinine (0.60-1.30) mg/dL Estimated GFR (>89) mL/min Random Glucose (74-106) mg/dL Calcium (8.5-10.1) mg/dL Total Bilirubin (0.2-1.0) mg/dL AST (15-37) U/L ALT (12-78) U/L Alkaline Phosphatase (45-117) U/L Total Protein (6.4-8.2) g/dL Albumin (3.4-5.0) g/dL Blood Type B Positive Antibody Screen Positive Ab Screen Tube Method Positive H Prewarmed Antibody Srcn Positive H Crossmatch See Detail
[2018-03-14 16:15] LABS: Baso % (Auto) 0.5 % (0.0-2.0); Eos # (Auto) 0.2 th/mm3 (0.0-0.4); Eos % (Auto) 2.5 % (0.0-4.0); Hematocrit 23.7 % (39.0-51.0); Hemoglobin 7.6 gm/dL (13.0-17.0); Lymph # (Auto) 0.9 th/mm3 (1.0-4.8); Lymph % (Auto) 14.7 % (9.0-44.0); Mean Corpuscular HGB Conc 31.9 % (32.0-36.0); Mean Corpuscular Hemoglobin 30.2 pg (27.0-34.0); Mean Corpuscular Volume 94.6 fL (80.0-100.0); Mono # (Auto) 0.7 th/mm3 (0.0-0.9); Mono % (Auto) 10.8 % (0.0-8.0); Neut # (Auto) 4.5 th/mm3 (1.8-7.7); Neut % (Auto) 71.5 % (16.0-70.0); Platelet Count 189 th/mm3 (150-450); Red Cell Distribution Width 22.5 % (11.6-17.2); White Blood Count 6.3 th/mm3 (4.0-11.0)
[2018-03-14 16:22] LABS: Activated Partial Thrombo Time 29.4 sec (24.3-30.1); INR 1.2 Ratio; Prothrombin Time 11.8 sec (9.8-11.6)
[2018-03-14 16:35] LABS: Albumin 2.6 g/dL (3.4-5.0); Anion Gap 8 meq/L (5-15); Aspartate Aminotransferase 23 U/L (15-37); Blood Urea Nitrogen 13 mg/dL (7-18); Calcium 8.6 mg/dL (8.5-10.1); Carbon Dioxide 24.4 meq/L (21.0-32.0); Chloride 110 meq/L (98-107); Glomerular Filtration Rate 35 mL/min (>89); Glucose,Random 131 mg/dL (74-106); Potassium 4.2 meq/L (3.5-5.1); Sodium 142 meq/L (136-145)
[2018-03-14 16:39] LABS: Alanine Aminotransferase 15 U/L (12-78); Alkaline Phosphatase 112 U/L (45-117); Total Protein 7.2 g/dL (6.4-8.2)
[2018-03-14] MEDS ORDERED: Sodium Chlor 0.9% Inj 250 ML IV.SIG SCH (18:00)
[2018-03-15] MEDS ORDERED: Amiodarone 200 MG Tablet PO ONE (08:12)
[2018-03-15] MEDS ORDERED: hydrALAZINE 50 MG Tablet PO ONE (08:12)
[2018-03-15] MEDS ORDERED: amLODIPine 10 MG Tablet PO ONE (08:12)
[2018-03-15 08:48] LABS: Baso % (Auto) 0.4 % (0.0-2.0); Eos # (Auto) 0.3 th/mm3 (0.0-0.4); Eos % (Auto) 5.1 % (0.0-4.0); Hemoglobin 7.4 gm/dL (13.0-17.0); Lymph # (Auto) 0.8 th/mm3 (1.0-4.8); Lymph % (Auto) 13.2 % (9.0-44.0); Mean Corpuscular HGB Conc 32.1 % (32.0-36.0); Mean Corpuscular Volume 93.5 fL (80.0-100.0); Mean Platelet Volume 8.4 fL (7.0-11.0); Mono # (Auto) 0.7 th/mm3 (0.0-0.9); Mono % (Auto) 11.8 % (0.0-8.0); Neut % (Auto) 69.5 % (16.0-70.0); Platelet Count 188 th/mm3 (150-450); Red Blood Count 2.46 mil/mm3 (4.50-5.90); Red Cell Distribution Width 22.1 % (11.6-17.2); White Blood Count 5.7 th/mm3 (4.0-11.0)
--- NOTE | 2018-03-15 10:06 | P.HP ---
History of Present Illness Service: Hospitalist Primary Care Physician: Alessio Jacob MD Chief Complaint: Anemia History of Present Illness: Mr. Murray is a pleasant 72-year-old male with a history of CKD, Gaucher's disease who was sent to the emergency department from [facility] for evaluation of anemia. Apparently at [facility] his hemoglobin was 6.2 with hematocrit 21.2. Patient currently does not have any acute concerns. He denies any chest pain, shortness of breath, fever or chills. He denies any dizziness or lightheadedness. No changes in bowel or bladder habits. On arrival temperature 98F, pulse 66, respiration 19, blood pressure 150/67, 97% on 2 L. His hemoglobin was found to be 7.6 with hematocrit 23.7. MCV 94.6. Sodium 142 , potassium 4.2, creatinine 1.89 with GFR of 35. Past medical history: Hypertension, hyperlipidemia, BPH, Gaucher's disease, CKD. Past surgical history: Could not obtain from the patient. Family history: Parents . They did not have Parkinson's or Alzheimer's. Social history: Could not obtain from patient. [facility]. - Diagnosis (1) Hypertension (2) Anemia (3) CKD (chronic kidney disease) stage 3, GFR 30-59 ml/min Review of Systems All other systems reviewed negative except as stated in HPI PMFSH - History History Provided By: Medical Record - Tobacco History Smoking Status: Former smoker - Alcohol History How Often Do You Have a Drink Containing Alcohol: Never - Substance Use History Substance History: No History of Abuse - Travel History Recent Travel in the [place] Within the Last 8 Weeks: No Recent Travel Out of the Country Within the Last 8 Weeks: No - Immunization History Tetanus Immunization: Unable to Assess Hx Influenza Vaccine This Season: Unable to Assess Medications and Allergies Active Medications: Active Medications Sodium Chloride (Ns Inj) 250 mls @ 15 mls/hr IV.SIG ONCE AUBRIE Stop: 03/15/18 10:39 Sodium Chloride (Ns Flush) 2 ml IV.FLUSH PRN PRN PRN Reason: FLUSH AFTER USING IV ACCESS Allergies Allergy/AdvReac Type Severity Reaction Status Date / Time lisinopril Allergy Unknown Verified 01/04/18 01:32 penicillin G Allergy Unknown Verified 01/04/18 01:32 wool Allergy Unknown Verified 01/04/18 01:32 Home Medications Medication Instructions Recorded Confirmed Type acetaminophen [Tylenol] 650 mg PO Q4H PRN 03/14/18 03/14/18 History amiodarone 200 mg PO BID 03/14/18 03/14/18 History amlodipine 10 mg PO DAILY 03/14/18 03/14/18 History atorvastatin 20 mg PO DAILY 03/14/18 03/14/18 History clopidogrel 75 mg PO DAILY 03/14/18 03/14/18 History famotidine 20 mg PO BID 03/14/18 03/14/18 History ferrous sulfate 325 mg PO BID 03/14/18 03/14/18 History hydralazine 50 mg PO TID 03/14/18 03/14/18 History isosorbide dinitrate 40 mg PO BID 03/14/18 03/14/18 History levetiracetam 500 mg PO Q12H 03/14/18 03/14/18 History ondansetron [Zofran ODT] 4 mg PO TID PRN 03/14/18 03/14/18 History quetiapine [Seroquel] 25 mg PO DAILY 03/14/18 03/14/18 History tamsulosin 0.4 mg PO DAILY 03/14/18 03/14/18 History thiamine HCl (vitamin B1) 100 mg PO DAILY 03/14/18 03/14/18 History Exam Vital signs: Vital Signs 03/14/18 14:43 03/14/18 14:56 03/14/18 15:57 Temperature 98.0 F Pulse Rate 66 Respiratory Rate 19 19 Blood Pressure 150/67 H Pulse Oximetry 97 96 03/14/18 22:29 03/15/18 02:00 03/15/18 06:00 Temperature 98.6 F Pulse Rate 64 72 72 Respiratory Rate 16 16 16 Blood Pressure 157/85 H 183/71 H 202/78 H Pulse Oximetry 03/15/18 07:09 03/15/18 09:25 Temperature Pulse Rate 79 68 Respiratory Rate 18 Blood Pressure 191/90 H 179/78 H Pulse Oximetry 98 Intake & Output 03/14/18 03/15/18 03/15/18 18:59 06:59 18:59 Weight 72.575 kg Narrative: GENERAL: This is a well-nourished, well-developed patient, in no apparent distress. Somewhat confused. 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 SKIN: No rashes, ecchymoses or lesions. Warm and dry. HEAD: Atraumatic. Normocephalic. No temporal or scalp tenderness. EYES: Pupils equal round and reactive. No injection or drainage. ENT: Nose without bleeding, purulent drainage or septal hematoma. Airway patent. NECK: Trachea midline. No lymphadenopathy. Supple, nontender, no meningeal signs. CARDIOVASCULAR: Regular rate and rhythm without murmurs, gallops, or rubs. No JVD. RESPIRATORY: Clear to auscultation. Breath sounds equal bilaterally. No wheezes , rales, or rhonchi. GASTROINTESTINAL: Abdomen soft, non-tender, nondistended. No guarding. MUSCULOSKELETAL: Extremities without clubbing, cyanosis, or edema. NEUROLOGICAL: Awake and alert. Cranial nerves II through XII intact. No focal neurological deficits. Normal speech. Results - Labs CBC & Chem 7: 03/15/18 08:30 03/14/18 15:20 Labs: Laboratory Results - last 24 hr 03/14/18 03/14/18 03/14/18 15:20 15:20 15:20 WBC 6.3 RBC 2.50 L Hgb 7.6 L Hct 23.7 L MCV 94.6 MCH 30.2 MCHC 31.9 L RDW 22.5 H Plt Count 189 MPV 9.0 Neut % (Auto) 71.5 H Lymph % (Auto) 14.7 [place] % (Auto) 10.8 H Eos % (Auto) 2.5 Baso % (Auto) 0.5 Neut # (Auto) 4.5 Lymph # (Auto) 0.9 L [place] # (Auto) 0.7 Eos # (Auto) 0.2 Baso # (Auto) 0.0 WBC Differential . Differential Comment Auto diff final PT 11.8 H INR 1.2 APTT 29.4 Sodium 142 Potassium 4.2 Chloride 110 H Carbon Dioxide 24.4 Anion Gap 8 BUN 13 Creatinine 1.89 H Estimated GFR 35 L Random Glucose 131 H Calcium 8.6 Total Bilirubin 0.5 AST 23 ALT 15 Alkaline Phosphatase 112 Total Protein 7.2 Albumin 2.6 L Blood Type Antibody Screen Ab Screen Tube Method Prewarmed Antibody Srcn Crossmatch 03/14/18 03/15/18 15:20 08:30 WBC 5.7 RBC 2.46 L Hgb 7.4 L Hct 23.0 L MCV 93.5 MCH 30.0 MCHC 32.1 RDW 22.1 H Plt Count 188 MPV 8.4 Neut % (Auto) 69.5 Lymph % (Auto) 13.2 [place] % (Auto) 11.8 H Eos % (Auto) 5.1 H Baso % (Auto) 0.4 Neut # (Auto) 4.0 Lymph # (Auto) 0.8 L [place] # (Auto) 0.7 Eos # (Auto) 0.3 Baso # (Auto) 0.0 WBC Differential . Differential Comment Auto diff final PT INR APTT Sodium Potassium Chloride Carbon Dioxide Anion Gap BUN Creatinine Estimated GFR Random Glucose Calcium Total Bilirubin AST ALT Alkaline Phosphatase Total Protein Albumin Blood Type B Positive Antibody Screen Positive Ab Screen Tube Method Positive H Prewarmed Antibody Srcn Positive H Crossmatch See Detail Caprini VTE Risk Assessment Caprini VTE Risk Assessment: No/Low Risk (score <= 1) Caprini Risk Assessment Model: Point Value = 1 Point Value = 2 Point Value = 3 Point Value = 5 Age 41-60 Minor surgery BMI > 25 kg/m2 Swollen legs Varicose veins or History of unexplained or recurrent spontaneous Oral contraceptives or hormone replacement Sepsis (< 1 month) Serious lung disease, including pneumonia (< 1 month) Abnormal pulmonary function Acute myocardial infarction Congestive heart failure (< 1 month) History of inflammatory bowel disease Medical patient at bed rest Age 61-74 Arthroscopic surgery Major open surgery (> 45 min) Laparoscopic surgery (> 45 min) Malignancy Confined to bed (> 72 hours) Immobilizing plaster cast Central venous access Age >= 75 History of VTE Family history of VTE Factor V Leiden Prothrombin [id number] Lupus anticoagulant Anticardiolipin antibodies Elevated serum homocysteine Heparin-induced thrombocytopenia Other congenital or acquired thrombophilia Stroke (< 1 month) Elective arthroplasty Hip, pelvis, or leg fracture Acute spinal cord injury (< 1 month) Prophylaxis Regimen: Total Risk Factor Score Risk Level Prophylaxis Regimen 0-1 Low Early ambulation 2 Moderate Order ONE of the following: *Sequential Compression Device (SCD) *Heparin 5000 units SQ BID 3-4 Higher Order ONE of the following medications: *Heparin 5000 units SQ TID *Enoxaparin/Lovenox 40 mg SQ daily (WT < 150 kg, CrCl > 30 mL/min) *Enoxaparin/Lovenox 30 mg SQ daily (WT < 150 kg, CrCl > 10-29 mL/min) *Enoxaparin/Lovenox 30 mg SQ BID (WT < 150 kg, CrCl > 30 mL/min) AND/OR *Sequential Compression Device (SCD) 5 or more Highest Order ONE of the following medications: *Heparin 5000 units SQ TID (Preferred with Epidurals) *Enoxaparin/Lovenox 40 mg SQ daily (WT < 150 kg, CrCl > 30 mL/min) *Enoxaparin/Lovenox 30 mg SQ daily (WT < 150 kg, CrCl > 10-29 mL/min) *Enoxaparin/Lovenox 30 mg SQ BID (WT < 150 kg, CrCl > 30 mL/min) AND *Sequential Compression Device (SCD) Assessment and Plan - Assessment (1) Hypertension Code(s): I10 - Essential (primary) hypertension Status: Acute (2) Anemia Code(s): D64.9 - Anemia, unspecified Status: Acute (3) CKD (chronic kidney disease) stage 3, GFR 30-59 ml/min Code(s): N18.3 - Chronic kidney disease, stage 3 (moderate) Status: Acute - Plan Mr. Murray is a 72-year-old male with a history of CKD, Gaucher's disease who presented to the emergency department from [facility] due to anemia with hemoglobin 6.2 at the [facility]. On arrival his hemoglobin was found to be 7.6. Repeat hemoglobin was 7.4. Anemia of chronic kidney disease -Initial hemoglobin 7.6 and repeat hemoglobin 7.4. No indication to transfuse at this point. -Patient likely need nephrology evaluation in the outpatient setting. He may need erythropoietin Chronic kidney disease stage III -Creatinine 1.89. This appears to be around his baseline. Hypertension Hyperlipidemia BPH -Continue amiodarone 200 mg p.o. twice daily, amlodipine 10 mg daily, atorvastatin 20 mg p.o. daily -Also continue hydralazine 50 mg 3 times daily, isosorbide dinitrate 40 mg p.o. twice daily, tamsulosin 0.4 mg p.o. daily. Hx of Seizure activity -Continue Keppra 500 mg p.o. every 12 hours. Full code. SCDs. Patient can likely go back to [facility] today. 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
[2018-03-15 14:01] LABS: Reticulocyte Percent 7.7 % (0.4-3.0)
[2018-03-15] MEDS: levETIRAcetam 500 MG Tablet PO SCH ×2 (14:09→22:39)
[2018-03-15] MEDS: hydrALAZINE 50 MG Tablet PO SCH ×2 (14:10→19:32)
[2018-03-15 14:15] LABS: % Iron Saturation 22.8 % (20-50)
[2018-03-15] MEDS: Famotidine 20 MG Tablet PO SCH (22:38)
[2018-03-15] MEDS: Amiodarone 200 MG Tablet PO SCH (22:39)
[2018-03-15] MEDS: Ferrous Sulfate 325 MG Tablet PO SCH (22:39)
[2018-03-16 07:52] VITALS: PULSE 64; RESP 16; O2SAT 93
[2018-03-16] MEDS ORDERED: amLODIPine 10 MG Tablet PO SCH (09:00)
[2018-03-16] MEDS ORDERED: QUEtiapine 25 MG Tablet PO SCH (09:00)
[2018-03-16 10:46] LABS: Hematocrit 25.1 % (39.0-51.0)
[2018-03-16] MEDS: levETIRAcetam 500 MG Tablet PO SCH (11:43)
[2018-03-16] MEDS: hydrALAZINE 50 MG Tablet PO SCH ×2 (11:43→12:06)
[2018-03-16] MEDS: Amiodarone 200 MG Tablet PO SCH (11:43)
[2018-03-16] MEDS: Ferrous Sulfate 325 MG Tablet PO SCH (11:43)
[2018-03-16] MEDS: Famotidine 20 MG Tablet PO SCH (11:44)
[2018-03-16 12:59] VITALS: BP 188/90; TEMP 97.9
--- NOTE | 2018-03-16 17:20 | P.DS ---
Date of admission: 03/14/18 21:36 Primary care physician: Alessio Jacob MD Brief History from admission: Mr. Murray is a pleasant 72-year-old male with a history of CKD, Gaucher's disease who was sent to the emergency department from [facility] for evaluation of anemia. Apparently at SNF his hemoglobin was 6.2 with hematocrit 21.2. Patient currently does not have any acute concerns. He denies any chest pain, shortness of breath, fever or chills. He denies any dizziness or lightheadedness. No changes in bowel or bladder habits. On arrival temperature 98F, pulse 66, respiration 19, blood pressure 150/67, 97% on 2 L. His hemoglobin was found to be 7.6 with hematocrit 23.7. MCV 94.6. Sodium 142 , potassium 4.2, creatinine 1.89 with GFR of 35. Past medical history: Hypertension, hyperlipidemia, BPH, Gaucher's disease, CKD. Past surgical history: Could not obtain from the patient. Family history: Parents . They did not have Parkinson's or Alzheimer's. Social history: Could not obtain from patient. He came from a [facility] facility. DS: Diagnosis - Discharge Diagnosis (1) Hypertension Status: Acute (2) Anemia Status: Acute (3) CKD (chronic kidney disease) stage 3, GFR 30-59 ml/min Status: Acute DS: Summary Hospital Course: Mr. Murray is a 72-year-old male with a history of CKD, Gaucher's disease who was sent to the emergency department from his SNF due to hemoglobin 6.2 and hematocrit 21.2. On arrival in the ED, his hemoglobin was found to be 7.6 hematocrit 23.7 and MCV 94.6. We repeated his hemoglobin which was 7.4 and on the day of discharge his hemoglobin was 8.0. His iron level was 55, TIBC 241 and iron saturation 22.8. Ferritin level 487. Reticulocyte count was 7.7% . Emergency room provider ordered 1 unit of blood transfusion. However patient 's crossmatch found multiple antibodies. I discussed with pathologist who indicated that new antibodies were found and thus although not contraindicated caution was advised in order to transfuse PRBCs. Patient's hemoglobin is above 7.0 and thus does not have any current indication to transfuse blood at this point. He does not have any chest pain or other indication to give his hemoglobin above his current hemoglobin level. His anemia is likely due to chronic kidney disease. His creatinine is 1.89 and GFR 35 this appears to be his baseline. Patient was subsequently discharged back to SNF. - Time Spent with Patient Total time spent providing and/or coordinating discharge services: Less than 30 minutes - Quality: VTE Deep Vein Thrombosis/Pulmonary Embolism Present on Admission: No Exam Vital signs: Vital Signs 03/15/18 20:00 03/16/18 00:00 03/16/18 07:51 Temperature 97.9 F 97.2 F L 97.8 F Pulse Rate 72 70 64 Respiratory Rate 17 17 16 Blood Pressure 178/80 H 149/76 H 179/81 H Pulse Oximetry 96 96 93 L 03/16/18 12:00 Temperature 97.9 F Pulse Rate 64 Respiratory Rate 16 Blood Pressure 188/90 H Pulse Oximetry Intake & Output 03/15/18 03/16/18 03/16/18 18:59 06:59 18:59 Intake Total 480 / 480 Balance 480 / 480 Intake: Oral 480 / 480 Other: # Incontinent Voids 3 # Urine Diapers 3 Narrative: GENERAL: Alert, NAD. SKIN: Warm and dry. HEAD: Normocephalic. EYES: No scleral icterus. No injection or drainage. NECK: Supple, trachea midline. No JVD or lymphadenopathy. CARDIOVASCULAR: Regular rate and rhythm without murmurs, gallops, or rubs. RESPIRATORY: Breath sounds equal bilaterally. No accessory muscle use. GASTROINTESTINAL: Abdomen soft, non-tender, nondistended. MUSCULOSKELETAL: No cyanosis, or edema. BACK: Nontender without obvious deformity. No CVA tenderness. Results Procedures completed during hospitalization: None Labs on day of discharge: Labs from last 24 hours 03/16/18 03/14/18 03/14/18 10:10 18:25 15:20 Hgb 8.0 L Hct 25.1 L Antibody Identification Anti-Warren A Crossmatch See Detail Discharge Plan - Discharge Disposition Patient Disposition: 03 Discharge to SNF - Discharge Condition Condition: Fair - Discharge Order Discharge Orders: Discharge Order (Routine); Ordered 03/16/18 Ordered By: Cooper Oniel - Discharge Details Anticipated Discharge Date: 03/16/18 Discharge Comment: No blood transfusion given sine patient's hgb was 7.6 - 8.0. Also, Pathology indicated that patient has multiple anti-bodies which makes it difficult (not impossible) to provide blood transfusion safely. - Physicians Team Primary Care Provider: Alessio Jacob Attending Provider: Cooper Oneil Other Providers: [facility]
== END 2018-03-16 15:04 ==
LOC: NEDA 13:23 → NEPC 13:23 → NEPHCDU 13:23 → NEDH 03-15 01:36 → NEPHCDU 03-15 10:18
PROVIDERS: ADMIT Hospitalist; ATTEND Hospitalist
DX: E75.22 Gaucher disease; F03.90 Unspecified dementia, unspecified severity, without behavioral disturbance, psychotic disturbance, mood disturbance, and anxiety; Z79.899 Other long term (current) drug therapy; I12.9 Hypertensive chronic kidney disease with stage 1 through stage 4 chronic kidney disease, or unspecified chronic kidney disease; N40.0 Benign prostatic hyperplasia without lower urinary tract symptoms; Z93.1 Gastrostomy status; Z79.02 Long term (current) use of antithrombotics/antiplatelets; N18.3 Chronic kidney disease, stage 3 (moderate); Z87.891 Personal history of nicotine dependence; E78.5 Hyperlipidemia, unspecified; D63.1 Anemia in chronic kidney disease